=== PATIENT | female | born 1960 | race African-American/Black ===

== ENCOUNTER 2017-12-26 19:53 | Emergency (ER) | payer OTHER ==
[2017-12-26 20:40] LABS: Urine Blood NEGATIVE (NEG); Urine Glucose NEGATIVE (NEG); Urine Protein 1+ (NEG); Urine Specific Gravity 1.025 (1.005-1.030); Urine pH 6.5 (5.0-7.0)
[2017-12-26 20:40] LABS: Urine Bacteria <20 /HPF (<20); Urine Culture Reflex Order NOT NEEDED; Urine Mucus 2+ /HPF (NONE SEEN); Urine RBC <5 /HPF (NONE SEEN)
[2017-12-26 20:42] LABS: Absolute Lymphocytes (CBC) 2.7 K/uL (0.7-4.9); Absolute Monocytes 0.6 K/uL (0.1-1.3); Absolute Neutrophil 4.6 K/uL (1.8-8.0); Basophils % 0.8 % (0-1.3); Eosinophils % 2.3 % (0-4.4); Lymphocytes % 32.5 % (15.3-44.8); MCH 28.1 pg (27.0-35.0); MCV 85.6 fL (80-100); MPV 10.3 fL (7.6-11.3); Monocytes % 7.9 % (3.3-12.3); RBC Red Blood Cell Count 4.44 M/uL (3.86-4.86)
[2017-12-26 20:59] LABS: ALT/SGPT 20 U/L (12-78); AST/SGOT 21 U/L (15-37); Albumin 3.6 g/dL (3.4-5.0); Alkaline Phosphatase 102 U/L (45-117); Amylase Level 29 U/L (25-115); BUN Blood Urea Nitrogen 16 mg/dL (7-18); Bicarbonate 32 mmol/L (21-32); Bilirubin Direct < 0.1 mg/dL (0-0.2); Bilirubin Total 0.2 mg/dL (0.2-1.0); Glucose Level 88 mg/dL (74-106); Lipase 87 U/L (73-393); Potassium 3.5 mmol/L (3.5-5.1); Protein, Total 8.1 g/dL (6.4-8.2); Sodium Level 141 mmol/L (136-145)
[2017-12-27] MEDS ORDERED: KETOROLAC 30 MG/ML INJ ONE (00:50)
--- NOTE | 2017-12-27 00:57 | ER ---
Nurse's Notes [facility] Name: Dixie Herrera Age: 57 yrs Sex: Female : 1960 Arrival Date: 12/26/2017 Time: 19:53 Bed 7 Private MD: Diagnosis: Epiploic Appendagitis Presentation: 12/26 20:06 Presenting complaint: Patient states: Left lower quadrant abdominal pain since aj1 approximately 1230 this afternoon. Denies N/V/D/fever. Reports that her pain has gotten progressively worse as the day has gone on. Denies dysuria, reports urinary frequency. Transition of care: patient was not received from another setting of care. Onset of symptoms was December 26, 2017 at 12:30. Risk Assessment: Do you want to hurt yourself or someone else? Patient reports no desire to harm self or others. Initial Sepsis Screen: Does the patient meet any 2 criteria? HR > 90 bpm. Does the patient have a suspected source of infection? No. Patient's initial sepsis screen is negative. Care prior to arrival: None. 20:06 Method Of Arrival: Ambulatory aj1 20:06 Acuity: JOSE A 3 aj1 Triage Assessment: 20:11 General: Appears in no apparent distress. uncomfortable, Behavior is calm, cooperative, aj1 appropriate for age. Pain: Complains of pain in left lower quadrant Pain does not radiate. Pain currently is 8 out of 10 on a pain scale. Quality of pain is described as sharp, Pain began 8 hours ago Is intermittent, Alleviated by nothing. Aggravated by nothing. Neuro: Level of Consciousness is awake, alert, obeys commands. Cardiovascular: Patient's skin is warm and dry. Respiratory: Airway is patent Respiratory effort is even, unlabored, Respiratory pattern is regular, symmetrical. GI: Abdomen is non-distended, Reports lower abdominal pain, Patient currently denies diarrhea, nausea, vomiting. : Reports urinary frequency, Denies burning with urination. Derm: Skin is pink, warm \T\ dry. normal. Musculoskeletal: Circulation, motion, and sensation intact. 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 - Social history:: Smoking status: Patient/guardian denies using tobacco. - Ebola Screening: : Patient denies travel to an Ebola-affected area in the 21 days before illness onset. Screenin:29 Abuse screen: Denies threats or abuse. Denies injuries from another. Nutritional lp1 screening: No deficits noted. Tuberculosis screening: No symptoms or risk factors identified. Fall Risk None identified. Assessment: 20:28 General: Appears uncomfortable, Behavior is appropriate for age. Pain: Complains of lp1 pain in left lower quadrant Pain currently is 7 out of 10 on a pain scale. Quality of pain is described as aching, Pain began gradually. Neuro: Level of Consciousness is awake, alert, obeys commands. Cardiovascular: Patient's skin is warm and dry. Respiratory: Respiratory effort is even, unlabored. GI: Abdomen is obese, Bowel sounds present X 4 quads. Abdomen is tender to palpation in left lower quadrant. : Reports urinary frequency. EENT: No signs and/or symptoms were reported regarding the EENT system. Derm: Skin is intact, Skin is dry, Skin is normal. Musculoskeletal: Circulation, motion, and sensation intact. 21:25 Reassessment: Patient appears in no apparent distress at this time. Patient and/or lp1 family updated on plan of care and expected duration. Pain level reassessed. Patient drinking oral contrast at this time. 21:30 Reassessment: CT notified of patient completing oral contrast at this time. lp1 22:30 Reassessment: Patient appears in no apparent distress at this time. Patient and/or lp1 family updated on plan of care and expected duration. Pain level reassessed. Patient is alert, oriented x 3, equal unlabored respirations, skin warm/dry/pink. 23:09 Reassessment: PT TO CT WITH SOLAR TECH. bp 23:40 Reassessment: Patient ambulated to bathroom at this time. lp1 07 00:45 Reassessment: Patient appears in no apparent distress at this time. Patient and/or lp1 family updated on plan of care and expected duration. Pain level reassessed. Patient is alert, oriented x 3, equal unlabored respirations, skin warm/dry/pink. 01:21 Reassessment: Patient states pain decreased at this time. lp1 Vital Signs: 12/26 20:11 BP 134 / 86; Pulse 89; Resp 18; Temp 97.4(O); Pulse Ox 98% on R/A; Weight 131.54 kg aj1 (R); Height 5 ft. 7 in. (170.18 cm); Pain 8/10; 21:28 BP 127 / 67; Pulse 100; Resp 18; Pulse Ox 100% on R/A; lp1 22:15 BP 123 / 74; Pulse 85; Resp 18; Pulse Ox 100% on R/A; lp1 23:00 BP 130 / 80; Pulse 79; Resp 18; Pulse Ox 100% on R/A; lp1 12/27 00:15 BP 110 / 80; Pulse 87; Resp 16; Pulse Ox 100% on R/A; lp1 01:00 BP 154 / 73; Pulse 83; Resp 18; Pulse Ox 99% on R/A; lp1 12/26 20:11 Body Mass Index 45.42 (131.54 kg, 170.18 cm) [facility] ED Course: 12/26 19:53 Patient arrived in ED. ds1 20:09 Jaime Carlos PA is PHCP. cp 20:09 Jose Antonio Beach MD is Attending Physician. cp 20:11 Triage completed. aj1 20:11 Arm band placed on Patient placed in an exam room. aj1 20:12 Mercedez Figueroa, RN is Primary Nurse. lp1 20:29 Patient has correct armband on for positive identification. Placed in gown. Pulse ox lp1 on. NIBP on. 20:29 Urine collected: clean catch specimen, clear. lp1 20:37 Inserted saline lock: 20 gauge in left antecubital area, using aseptic technique. rv 22:55 No provider procedures requiring assistance completed. lp1 23:17 CT Abd/Pelvis - W/Contrast: may give oral contrast In Process Unspecified. EDMS 23:17 Patient moved to [place] via stretcher. eh 23:25 CT completed. Patient tolerated procedure well. Patient moved back from [place]. 12/27 01:22 IV discontinued, No redness/swelling at site. Pressure dressing applied. lp1 Administered Medications: 00:49 Drug: TORadol 30 mg Route: IVP; Site: left antecubital; lp1 01:21 Follow up: Response: Pain is decreased lp1 Outcome: 00:57 Discharge ordered by . cp 01:22 Discharged to home ambulatory. lp1 01:22 Condition: good 01:22 Discharge instructions given to patient, Instructed on discharge instructions, follow up and referral plans. medication usage, Demonstrated understanding of instructions, follow-up care, medications, Prescriptions given X 2. 01:37 Patient left the ED. lp1 Signatures: Dispatcher [employer] EDNena Abreu RN RN aj1 Festus Espinoza Demi ds1 Mercedez Figueroa RN RN lp1 Jaime Carlos PA PA cp Peltier, Brian RN RN bp Coy Garcia RN RN rv Corrections: (The following items were deleted from the chart) 12/26 21:30 21:28 Reassessment: Patient appears in no apparent distress at this time. Patient lp1 and/or family updated on plan of care and expected duration. Pain level reassessed. Patient drinking oral contrast at this time lp1
--- NOTE | 2017-12-27 00:57 | EDPHYS ---
Physician Documentation [facility] Name: Dixie Herrera Age: 57 yrs Sex: Female : 1960 Arrival Date: 12/26/2017 Time: 19:53 Bed 7 Private MD: ED Physician Jose Antonio Beach HPI: 12/26 20:42 This 57 yrs old Black Female presents to ER via Ambulatory with complaints of L Side cp Pain. 20:42 The patient presents with abdominal pain in the left lower quadrant. Onset: The cp symptoms/episode began/occurred today. The symptoms do not radiate. 20:42 Associated signs and symptoms: Pertinent negatives: anorexia, blood in stools, chest cp pain, constipation, diarrhea, dysuria, fever, hematuria, vaginal discharge. The symptoms are described as constant. Modifying factors: the symptoms are aggravated by pressure. 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 - Social history:: Smoking status: Patient/guardian denies using tobacco. - Ebola Screening: : Patient denies travel to an Ebola-affected area in the 21 days before illness onset. ROS: 20:48 Constitutional: Negative for body aches, chills, fever, poor PO intake. cp 20:48 Eyes: Negative for injury, pain, redness, and discharge. cp 20:48 ENT: Negative for ear pain, sore throat, difficulty swallowing, difficulty handling secretions. 20:48 Cardiovascular: Negative for chest pain. 20:48 Respiratory: Negative for cough, shortness of breath, wheezing. 20:48 Abdomen/GI: Positive for abdominal pain, of the anterior aspect of left lateral abdomen and left lower quadrant, Negative for nausea, vomiting, and diarrhea, constipation, anorexia. 20:48 Back: Negative for radiated pain. 20:48 : Negative for urinary symptoms. 20:48 Skin: Negative for cellulitis, rash. 20:48 Neuro: Negative for altered mental status, headache, weakness. 20:48 All other systems are negative. Exam: 20:55 Constitutional: The patient appears in no acute distress, alert, awake, cp non-diaphoretic, non-toxic, well developed, well nourished, obese. 20:55 Head/Face: Normocephalic, atraumatic. cp 20:55 Eyes: Periorbital structures: appear normal, Conjunctiva: normal, no exudate, no injection, Sclera: no appreciated abnormality, Lids and lashes: appear normal, bilaterally. 20:55 ENT: External ear(s): are unremarkable, Nose: is normal, Mouth: is normal, Posterior pharynx: is normal, airway is patent, no erythema, no exudate. 20:55 Neck: ROM/movement: is normal, is supple, without pain, no range of motions limitations. 20:55 Chest/axilla: Inspection: normal, Palpation: is normal, no crepitus, no tenderness. 20:55 Cardiovascular: Rate: normal, Rhythm: regular. 20:55 Respiratory: the patient does not display signs of respiratory distress, Respirations: normal, no use of accessory muscles, no retractions, no splinting, no tachypnea, labored breathing, is not present, Breath sounds: are clear throughout, no decreased breath sounds, no stridor, no wheezing. 20:55 Abdomen/GI: Inspection: obese Bowel sounds: active, all quadrants, Palpation: soft, in all quadrants, mild abdominal tenderness, in the anterior aspect of left lateral abdomen and left lower quadrant, rebound tenderness, is not appreciated, voluntary guarding, is not appreciated, involuntary guarding, is not appreciated. 20:55 Back: pain, is absent, ROM is normal. 20:55 Skin: cellulitis, is not appreciated, no rash present. Vital Signs: 20:11 BP 134 / 86; Pulse 89; Resp 18; Temp 97.4(O); Pulse Ox 98% on R/A; Weight 131.54 kg aj1 (R); Height 5 ft. 7 in. (170.18 cm); Pain 8/10; 21:28 BP 127 / 67; Pulse 100; Resp 18; Pulse Ox 100% on R/A; lp1 22:15 BP 123 / 74; Pulse 85; Resp 18; Pulse Ox 100% on R/A; lp1 23:00 BP 130 / 80; Pulse 79; Resp 18; Pulse Ox 100% on R/A; lp1 12/27 00:15 BP 110 / 80; Pulse 87; Resp 16; Pulse Ox 100% on R/A; lp1 01:00 BP 154 / 73; Pulse 83; Resp 18; Pulse Ox 99% on R/A; lp1 12/26 20:11 Body Mass Index 45.42 (131.54 kg, 170.18 cm) aj1 MDM: 12/26 20:09 Patient medically screened. cp 21:00 Differential diagnosis: bowel obstruction, diverticulitis, gastritis, non-specific abd cp pain, Pyelonephritis, Ureterolithiasis, urinary tract infection. 12/27 00:55 Data reviewed: vital signs, nurses notes, lab test result(s), radiologic studies, CT cp scan. 00:55 Counseling: I had a detailed discussion with the patient and/or guardian regarding: the cp historical points, exam findings, and any diagnostic results supporting the discharge/admit diagnosis, lab results, radiology results, to return to the emergency department if symptoms worsen or persist or if there are any questions or concerns that arise at home. Response to treatment: the patient's symptoms have markedly improved after treatment, and as a result, I will discharge patient. Special discussion: Based on the patient's Hx, exam, and Dx evaluation, there is no indication for emergent surgery or inpatient Tx. It is understood by the patient/guardian that if the Sx's persist or worsen they need to return immediately for re-evaluation. ED course: VSS. Discussed results of labs and CT report. Will discharge to home with instructions to return worsening pain, fever. 12/26 20:18 Order name: Urine Microscopic Only; Complete Time: 20:43 cp 12/26 20:19 Order name: Amylase, Serum; Complete Time: 22:39 cp 12/26 20:19 Order name: Basic Metabolic Panel; Complete Time: 22:39 cp 12/26 20:19 Order name: CBC with Diff; Complete Time: 20:44 cp 12/26 20:19 Order name: Creatinine for Radiology; Complete Time: 22:39 cp 12/26 20:19 Order name: Hepatic Function; Complete Time: 22:39 cp 12/26 22:39 Interpretation: Normal except: GLOB 4.5; A/G 0.8. cp 12/26 20:18 Order name: Urine Dipstick-Ancillary (obtain specimen); Complete Time: 20:30 cp 12/26 20:18 Order name: Urine Test (obtain specimen); Complete Time: 20:33 cp 12/26 20:19 Order name: Lipase; Complete Time: 22:39 cp 12/26 20:19 Order name: IV Saline Lock; Complete Time: 20:37 cp 12/26 20:34 Order name: Urine Dipstick--Ancillary (enter results); Complete Time: 20:43 eb 12/26 20:34 Order name: Urine --Ancillary (enter results); Complete Time: 20:43 eb 12/26 20:44 Order name: CT Abd/Pelvis - W/Contrast: may give oral contrast cp 12/26 20:19 Order name: Labs collected and sent; Complete Time: 20:37 cp Administered Medications: 00:49 Drug: TORadol 30 mg Route: IVP; Site: left antecubital; lp1 01:21 Follow up: Response: Pain is decreased lp1 Disposition: 03:45 Co-signature as Attending Physician, Jose Antonio Beach MD. Disposition: 12/27/17 00:57 Discharged to Home. Impression: Epiploic Appendagitis. - Condition is Stable. - Discharge Instructions: Abdominal Pain, Adult. - Prescriptions for Naprosyn 500 mg Oral Tablet - take 1 tablet by ORAL route 2 times per day take with food; 20 tablet. Tramadol 50 mg Oral Tablet - take 1 tablet by ORAL route every 8 hours as needed; 12 tablet. - Work release form, Medication Reconciliation Form, Thank You Letter, Antibiotic Education, Prescription Opioid Use form. - Follow up: Private Physician; When: 1 - 2 days; Reason: Recheck today's complaints. - Problem is new. - Symptoms have improved. Signatures: Dispatcher [employer] Nena Camp RN RN aj1 Mercedez Figueroa RN RN lp1 Jaime Carlos PA PA cp Starr, Gregory, MD MD gs Corrections: (The following items were deleted from the chart) 01:37 00:57 12/27/2017 00:57 Discharged to Home. Impression: Epiploic Appendagitis. Condition lp1 is Stable. Forms are Medication Reconciliation Form, Thank You Letter, Antibiotic Education, Prescription Opioid Use. Follow up: Private Physician; When: 1 - 2 days; Reason: Recheck today's complaints. Problem is new. Symptoms have improved. cp
--- NOTE | 2017-12-27 08:00 | RAD REPORT ---
EXAM DESCRIPTION: CT - Abdomen Pelvis W Contrast - 12/27/2017 3:01 am CLINICAL HISTORY: Abdominal pain. left lower quadrant pain since 12:30 p.m. today COMPARISON: None. TECHNIQUE: Computed axial tomography of the abdomen and pelvis was obtained. 100 cc Isovue-300 is ad ministered intravenously. Oral contrast was given. A preliminary report was generated by [employer] [facility] and reviewed prior to this dictation All CT scans are performed using dose optimization technique as appropriate and may include automated exposure control or mA/KV adjustment according to patient size. FINDINGS: The liver has a diminished attenuation consistent with fatty infiltration. The gallbladder has been r emoved. Spleen, pancreas, adrenals and kidneys appear unremarkable. The appendix is normal caliber. There is no evidence of diverticulitis A 28 millimeter fatty structures abuts the proximal sigmoid colon. Mild stranding is present within t he adjacent fat. This represents epiploic appendagitis. A small umbilical hernia contains fat IMPRESSION: Left lower quadrant epiploic appendagitis
== END 2017-12-27 01:37 | disposition home or self-care (01) ==
LOC: ER 19:53
DX: K63.89 Other specified diseases of intestine (principal); I10 Essential (primary) hypertension
CPT/HCPCS: 36415; 74177; 80048; 80076; 81003; 81015; 81025; 82150; 83690; 85025; 96374; 99284; Q9967

== ENCOUNTER 2022-08-11 23:00 | Emergency (ER) | payer OTHER ==
--- OUTSIDE RECORDS SUMMARY | 2022-08-11 23:04 | XMS REPORT | Continuity of Care Document ---
:1960 Author Organization [facility] t Address [address] [place] [address] Care Team Providers Name Role Phone DIANA GONGORA Primary Care Physician Unavailable PARAMJIT YI Attending Clinician Unavailable Guido Valadez Attending Clinician Unavailable MALATHI ESPINOSA Attending Clinician Unavailable DIANA GONGORA Attending Clinician Unavailable RADIOLOGY Attending Clinician Unavailable Radiology Attending Clinician Unavailable Doctor Unassigned, [place] Attending Clinician Unavailable Diana Olson Attending Clinician Paramjit Yi MD Attending Clinician Only, Adc Test Attending Clinician Unavailable Lab, Ang - Db Attending Clinician Unavailable Rosa Olson MD Attending Clinician ROSA OLSON Attending Clinician Unavailable Matthew Marquez Attending Clinician Luiza Portillo Attending Clinician CHICA MONTANEZ Attending Clinician Unavailable Eliot Attending Clinician Unavailable Malathi Espinosa PA-C Attending Clinician CHUCK QUESADA Attending Clinician Unavailable Chuck Sanchez Attending Clinician JORI ESPINOZA Attending Clinician Unavailable Geronimo Delgadillo DO Attending Clinician oJri Espinoza MD Attending Clinician Nurse, [facility] Attending Clinician Unavailable Jose Odell Attending Clinician JOSE LANDA Attending Clinician Unavailable PARAMJIT YI Admitting Clinician Unavailable DIANA GONGORA Admitting Clinician Unavailable Paramjit Yi MD Admitting Clinician Eliot Admitting Clinician Unavailable CHUCK QUESADA Admitting Clinician Unavailable JORI ESPINOZA Admitting Clinician Unavailable Jori Espinoza MD Admitting Clinician Payers Payer Name Policy Type Policy Number Effective Date Expiration Date [place] [id number] 2018 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-[employer] 00:00:00 [employer] [id number] 2011 00:00:00 Problems Condition Condition Condition Status Onset Resolution Last Treating Co mments Source Name Details Category Date Date Treatment Clinician Date Need for Need for Disease Active 2021-06 Unive rs vaccinatio vaccinatio 1-21 it y of n n 00:00: [place] [facility] Exposure Exposure Disease Active Unive rs to to 6-20 [place] of hepatitis [place] 00[place] Incontinen Incontinen Disease Active U nivers ce in ce in 6-20 ity of female female 00:00: [place] [facility] Acute Acute Disease Active Univers midline midline 5-16 ity of low back low back 00:00: [place] pain with pain with 00 Medi lazaro right-side right-side Br anch d sciatica d sciatica Wellness Wellness Disease Active Unive rs examinatio examinatio 2-15 it y of n n 00:00: [place] [facility] Elevated Elevated Disease Active Unive rs cholestero cholestero 2-08 it y of l l 00:00: [place] [facility] Gastroesop Gastroesop Disease Active U nivers hageal hageal 2-08 ity of reflux reflux 00:00: [place] disease disease 00 Medical without without Branch esophagiti esophagiti s s Dyslipidem Dyslipidem Disease Active U nivers ia ia 2-03 ity of 00:00: [place] 00 Medical Branch Prediabete Prediabete Disease Active U nivers s s 2-03 ity of 00:00: 00 Medical Branch Chest pain Chest pain Disease Active U nivers 2-02 ity of 00:00: Medical Branch Morbid Morbid Disease Active Univers obesity obesity 2-02 ity of with body with body 00:[place] mass index mass index 00 Me dical of of Branch 40.0-49.9 40.0-49.9 Hypertensi Hypertensi Disease Active U nivers ve ve 6-30 ity of disorder disorder 00:00: Medical Branch Ankle Ankle Disease Active Univers swelling swelling 6-30 ity of 00:00: 00 Medical Branch Allergies, Adverse Reactions, Alerts Allergy Allergy Status Severity Reaction(s) Onset Inactive Treating Comm ents Source Name Type Date Date Clinician No Known DA Active U [facility] Drug 2-17 Allergie 00:00: s 00 NO KNOWN Drug Active Univers ALLERGIE Class ity of S [facility] Social History Social Habit Start Date Stop Date Quantity Comments Source History SDOH University o f Alcohol Frequency [place] [facility] History [facility] University o f Alcohol Std [place] Medical Drinks Branch History [facility] University o f Alcohol Binge [place] [facility] al Branch Exposure to 2022-05-05 2022-05-15 Not sure University of SARS-CoV-2 00:00:00 07:42:00 [facility] (event) Branch Alcohol intake 2022-05-15 2022-05-15 Current drinker Unive rsity of 00:00:00 00:00:00 of alcohol [facility] (finding) Branch Tobacco use and 2022-05-15 2022-05-15 Smokeless tobacco Un iversity of exposure 00:00:00 00:00:00 non-user [facility] Alcohol Comment 2021-08-30 2021-08-30 2-3x a year Universi ty of 00:00:00 00:00:00 [facility] Sex Ass[birth year] At [birth year] Universit y of 00:00:00 00:00:00 [facility] Smoking Status Start Date Stop Date Source Never smoked tobacco [facility] Medications Ordered Filled Start Stop Current Ordering Indication Dosage Frequency Signature Comments Components Source Medication Medication Date Date Medication? Clinician (SIG) Name Name aspirin 81 2021-06 Yes 81mg Take 81 mg U nivers mg chewable 1-21 by mouth ity of tablet 08:20: daily. [address] Branch atorvastati 2021-06 Yes 20mg Take 20 mg Univers n 20 mg 1-21 by mouth ity of tablet 08:20: at [place] [address] bedtime. Medical Branch aspirin 81 2021-06 Yes 81mg Take 81 mg U nivers mg chewable 1-21 by mouth ity of tablet 08:20: daily. [address] Medical Branch atorvastati 2021-06 Yes 20mg Take 20 mg Univers n 20 mg 1-21 by mouth ity of tablet 08:20: at [place] [address] bedtime. Medical Branch aspirin 81 2021-06 Yes 81mg Take 81 mg U nivers mg chewable 1-21 by mouth ity of tablet 08:20: daily. [address] Branch atorvastati 2021-06 Yes 20mg Take 20 mg Univers n 20 mg 1-21 by mouth ity of tablet 08:20: at [place] [address] bedtime. Medical Branch aspirin 81 2021-06 Yes 81mg Take 81 mg U nivers mg chewable 1-21 by mouth ity of tablet 08:20: daily. [address] Branch atorvastati 2021-06 Yes 20mg Take 20 mg Univers n 20 mg 1-21 by mouth ity of tablet 08:20: at [place] [address] bedtime. Medical Branch methocarbam 2021-06 Yes [id number] 500mg Take 1 Univers oL 500 mg 1-21 tablet by ity o f tablet 00:00: mouth 2 [place] [address] (two) Medical times Branch daily as needed for Pain (scale 4-6). methocarbam 2021-06 Yes [id number] 500mg Take 1 Univers oL 500 mg 1-21 tablet by ity o f tablet 00:00: mouth 2 [place] 00 (two) Medical times [place] daily as needed for Pain (scale 4-6). methocarbam 2021-06 Yes [id number] 500mg Take 1 Univers oL 500 mg 1-21 tablet by ity o f tablet 00:00: mouth 2 [place] 00 (two) Medical times Branch daily as needed for Pain (scale 4-6). methocarbam 2021-06 Yes [id number] 500mg Take 1 Univers oL 500 mg 1-21 tablet by ity o f tablet 00:00: mouth 2 [place] 00 (two) Medical times Branch daily as needed for Pain (scale 4-6). ibuprofen 2021-06- Yes [id number] 600mg Take 1 Univers 600 mg 1-21 12-06 tablet by ity of tablet 00:00: 05:59 mouth [place] 00 :00 every 6 Medical (six) Branch hours as needed for Temp > 38.5 C for up to 14 days. ibuprofen 2021-06- Yes [id number] 600mg Take 1 Univers 600 mg 1-21 12-06 tablet by ity of tablet 00:00: 05:59 mouth [place] 00 :00 every 6 Medical (six) Branch hours as needed for Temp > 38.5 C for up to 14 days. lisinopriL- 2021-06 Yes 1{tbl} Take 1 Un elmo hydrochloro 0-22 tablet by ity of thiazide 00:00: mouth in [place] 10-12.5 mg 00 the Medical per tablet morning. [facility] lisinopriL- 2021-06 Yes 1{tbl} Take 1 Un elmo hydrochloro 0-22 tablet by ity of thiazide 00:00: mouth in [place] 10-12.5 mg 00 the Medical per tablet morning. [facility] lisinopriL- 2021-06 Yes 1{tbl} Take 1 Un elmo hydrochloro 0-22 tablet by ity of thiazide 00:00: mouth in [place] 10-12.5 mg 00 the Medical per tablet morning. [facility] lisinopriL- 2021-06 Yes 1{tbl} Take 1 Un elmo hydrochloro 0-22 tablet by ity of thiazide 00:00: mouth in [place] 10-12.5 mg 00 the Medical per tablet morning. [facility] h lactated Yes 1000mL at 100 Unive rs ringers IV 7-11 mL/hr, ity of infusion 19:15: 1,000 [place], [place] 1,000 mL 00 IV Medical Infusion, Branch CONTINUOUS , Starting on Sun01/02/22 at 1415, Until Discontinu ed, Routine, PACU lactated 2021- No 1000mL at 100 Univ ers ringers IV 01-02 mL/hr, ity of infusion 19:15: 22:03 1,000 mL, [place] 1,000 mL 00 :39 IV Medical Infusion, Branch CONTINUOUS , Starting on Sun01/02/22 at 1415, Until Sun01/02/22 at 1703, Routine, PACU ondansetron Yes 4mg 4 mg, Slow Univers (ZOFRAN 11 IV Push, ity of (PF)) 19:04: PRN, 1 [place] injection 4 48 dose, Medical mg Starting Branch on Sun01/02/22 at 1404, Until Discontinu ed, Routine, Nausea and Vomiting (N/V), PACU ondansetron 2021- No 4mg 4 mg, Slow Univers (ZOFRAN 01-02 IV Push, ity of (PF)) 19:04: 22:03 PRN, 1 [place] injection 4 48 :39 dose, Medical mg Starting Branch on Sun01/02/22 at 1404, Until Sun01/02/22 at 1703, Routine, Nausea and Vomiting (N/V), PACU water for 2021- No PRN, Univers irrigation 01-02 Starting ity of irrigation 18:27: 19:57 on Sun [place] solution 00 :42 01/02/22 at Medic al 1327, Branch Until Sun01/02/22 at 1457, Routine, Intra-op simethicone 2021- No PRN, Unive rs (GAS RELIEF 01-02 Starting ity of (SIMETHICON 18:27: 19:57 on Mon [place] E)) 40 00 :42 01/02/22 at Medical mg/0.6 mL 1327, Branch drops Until Sun01/02/22 at 1457, Routine, Intra-op lactated 2021- No 1000mL at 42 Unive rs ringers IV 01-02 mL/hr, ity of infusion 16:45: 17:12 1,000 mL, [place] 1,000 mL 00 :00 IV Medical Infusion, Branch ONCE, 1 dose, On Sun01/02/22 at 1145, Routine, DSU Pre-op lactated 2021-2021- No 1000mL at 42 Unive rs ringers IV 01-02 07-11 mL/hr, ity of infusion 16:45: 17:12 1,000 mL, [place] 1,000 mL 00 :00 IV Medical Infusion, Branch ONCE, 1 dose, On Sun01/02/22 at 1145, Routine, DSU Pre-op aspirin 81 2021-0 Yes 81mg Take 81 mg U nivers mg chewable 7-11 by mouth ity of tablet 14:58: daily. 3 x [place] [address] weekly Medical Branch atorvastati 0 Yes 20mg Take 20 mg Univers n 20 mg 7-11 by mouth ity of tablet 14:58: at [place] [address] bedtime. Medical Branch aspirin 81 2021-0 Yes 81mg Take 81 mg U nivers mg chewable 7-11 by mouth ity of tablet 14:58: daily. 3 x [place] [address] weekly Medical Branch atorvastati 0 Yes 20mg Take 20 mg Univers n 20 mg 7-11 by mouth ity of tablet 14:58: at [place] [address] bedtime. Medical Branch aspirin 81 0 Yes 81mg Take 81 mg U nivers mg chewable 7-11 by mouth ity of tablet 14:58: daily. 3 x [place] [address] weekly Medical Branch atorvastati 0 Yes 20mg Take 20 mg Univers n 20 mg 7-11 by mouth ity of tablet 14:58: at [place] [address] bedtime. Medical Branch aspirin 81 0 Yes 81mg Take 81 mg U nivers mg chewable 7-05 by mouth ity of tablet 12:13: daily. 3 x [place] [address] weekly Medical Branch atorvastati 2021-0 Yes 20mg Take 20 mg Univers n 20 mg 7-05 by mouth ity of tablet 12:13: at [place] [address] bedtime. Medical Branch aspirin 81 2021-0 Yes 81mg Take 81 mg U nivers mg chewable 7-05 by mouth ity of tablet 12:13: daily. 3 x [place] [address] weekly Medical Branch atorvastati 2021-0 Yes 20mg Take 20 mg Univers n 20 mg 7-05 by mouth ity of tablet 12:13: at [place] 07 bedtime. Medical Branch aspirin 81 0 Yes 81mg Take 81 mg U nivers mg chewable 6-20 by mouth ity of tablet 15:59: daily. [address] aspirin 81 2021-0 Yes 81mg Take 81 mg U nivers mg chewable 6-20 by mouth ity of tablet 15:59: daily. [address] aspirin 81 0 Yes 81mg Take 81 mg U nivers mg chewable 6-20 by mouth ity of tablet 15:59: daily. [address] lisinopriL- 2021- No [id number] lisinopril Univers hydrochloro 11-15 10 ity of thiazide 00:00: 04:59 mg-hydroch [place] 10-12.5 mg 00 :00 lorothiazi Med ical per tablet de 12.5 mg Bra nch tablet TAKE 1 TABLET BY MOUTH EVERY DAY hydroCHLORO 2021- No [id number] hydrochlor Univers thiazide 11-15 othiazide ity o f 12.5 mg 00:00: 04:59 12.5 mg [place] tablet 00 :00 tablet [facility] lisinopriL- 2021- No [id number] lisinopril Univers hydrochloro 11-15 10 ity of thiazide 00:00: 04:59 [place]-hydroch [place] 10-12.5 mg 00 :00 lorothiazi Med ical per tablet de 12.5 mg Bra nch tablet TAKE 1 TABLET BY MOUTH EVERY DAY hydroCHLORO 2021- No [id number] hydrochlor Univers thiazide 11-15 othiazide ity o f 12.5 mg 00:00: 04:59 12.5 mg [place] tablet 00 :00 tablet [facility] lisinopriL- 2021- No [id number] lisinopril Univers hydrochloro 11-15- 10 ity of thiazide 00:00: 04:59 [place]-hydroch [place] 10-12.5 mg 00 :00 lorothiazi Med ical per tablet de 12.5 mg Bra nch tablet TAKE 1 TABLET BY MOUTH EVERY DAY hydroCHLORO 2021- No [id number] hydrochlor Univers thiazide 11-15 othiazide ity o f 12.5 mg 00:00: 04:59 12.5 mg [place] tablet 00 :00 tablet [facility] lisinopriL- 2021- No [id number] lisinopril Univers hydrochloro 11-15 10 ity of thiazide 00:00: 04:59 [place]-hydroch [place] 10-12.5 mg 00 :00 lorothiazi Med ical per tablet de 12.5 mg Bra nch tablet TAKE 1 TABLET BY MOUTH EVERY DAY hydroCHLORO 2021- No [id number] hydrochlor Univers thiazide 11-15 othiazide ity o f 12.5 mg 00:00: 04:59 12.5 mg [place] tablet 00 :00 tablet [facility] lisinopriL- 2021- No [id number] lisinopril [facility] hydrochloro 11-15 10 ity of thiazide 00:00: 04:59 [place]-hydroch [place] 10-12.5 mg 00 :00 lorothiazi Med ical per tablet de 12.5 mg Bra nch tablet TAKE 1 TABLET BY MOUTH EVERY DAY hydroCHLORO 2021- No [id number] hydrochlor Univers thiazide 11-15 othiazide ity o f 12.5 mg 00:00: 04:59 12.5 mg [place] tablet 00 :00 tablet [facility] lisinopriL- 2021- No [id number] lisinopril [facility] hydrochloro 11-15 10 ity of thiazide 00:00: 04:59 mg-hydroch [place] 10-12.5 mg 00 :00 lorothiazi Med ical per tablet de 12.5 mg Bra nch tablet TAKE 1 TABLET BY MOUTH EVERY DAY hydroCHLORO 2021- No [id number] hydrochlor Univers thiazide 11-15 othiazide ity o f 12.5 mg 00:00: 04:59 12.5 mg [place] tablet 00 :00 tablet [facility] lisinopriL- 2021- No [id number] lisinopril Univers hydrochloro 11-15 10 ity of thiazide 00:00: 04:59 mg-hydroch [place] 10-12.5 mg 00 :00 lorothiazi Med ical per tablet de 12.5 mg Bra nch tablet TAKE 1 TABLET BY MOUTH EVERY DAY hydroCHLORO 2021-0 2022- No [id number] hydrochlor Univers thiazide 5-24 08-25 othiazide ity o f 12.5 mg 00:00: 04:59 12.5 mg [place] tablet 00 :00 tablet Medical Branch methocarbam 2021-0 Yes [id number] 500mg Take 1 Univers oL 500 mg 5-16 tablet by ity o f tablet 00:00: mouth (three) Medical times Branch daily as needed for Pain (scale 4-6). ibuprofen 2021-0 Yes [id number] 600mg Take 1 Univers 600 mg 5-16 tablet by ity of tablet 00:00: mouth every 8 Medical (eight) Branch hours as needed for Pain (scale 4-6). methocarbam 2021-0 Yes [id number] 500mg Take 1 Univers oL 500 mg 5-16 tablet by ity o f tablet 00:00: mouth (three) Medical times Branch daily as needed for Pain (scale 4-6). ibuprofen 2021-0 Yes [id number] 600mg Take 1 Univers 600 mg 5-16 tablet by ity of tablet 00:00: mouth every 8 Medical (eight) Branch hours as needed for Pain (scale 4-6). methocarbam 2021-0 Yes [id number] 500mg Take 1 Univers oL 500 mg 5-16 tablet by ity o f tablet 00:00: mouth (three) Medical times Branch daily as needed for Pain (scale 4-6). ibuprofen 2021-0 Yes [id number] 600mg Take 1 Univers 600 mg 5-16 tablet by ity of tablet 00:00: mouth every 8 Medical (eight) Branch hours as needed for Pain (scale 4-6). methocarbam 2021-0 Yes [id number] 500mg Take 1 Univers oL 500 mg 5-16 tablet by ity o f tablet 00:00: mouth (three) Medical times Branch daily as needed for Pain (scale 4-6). ibuprofen 2021-0 Yes [id number] 600mg Take 1 Univers 600 mg 5-16 tablet by ity of tablet 00:00: mouth every 8 Medical (eight) Branch hours as needed for Pain (scale 4-6). methocarbam 2021-0 Yes [id number] 500mg Take 1 Univers oL 500 mg 5-16 tablet by ity o f tablet 00:00: mouth 3 [place] 00 (three) Medical times Branch daily as needed for Pain (scale 4-6). ibuprofen 2022-0 Yes [id number] 600mg Take 1 Univers 600 mg 5-16 tablet by ity of tablet 00:00: mouth [place] 00 every 8 Medical (eight) Branch hours as needed for Pain (scale 4-6). ibuprofen 2022-0 Yes [id number] 600mg Take 1 Univers 600 mg 5-16 tablet by ity of tablet 00:00: mouth [place] 00 every 8 Medical (eight) Branch hours as needed for Pain (scale 4-6). ibuprofen 2-0 Yes [id number] 600mg Take 1 Univers 600 mg 5-16 tablet by ity of tablet 00:00: mouth [place] 00 every 8 Medical (eight) Branch hours as needed for Pain (scale 4-6). ibuprofen 2021-0 Yes [id number] 600mg Take 1 Univers 600 mg 5-16 tablet by ity of tablet 00:00: mouth [place] 00 every 8 Medical (eight) Branch hours as needed for Pain (scale 4-6). ibuprofen 2-0 Yes [id number] 600mg Take 1 Univers 600 mg 5-16 tablet by ity of tablet 00:00: mouth [place] 00 every 8 Medical (eight) Branch hours as needed for Pain (scale 4-6). ibuprofen 2021-0 Yes [id number] 600mg Take 1 Univers 600 mg 5-16 tablet by ity of tablet 00:00: mouth [place] 00 every 8 Medical (eight) Branch hours as needed for Pain (scale 4-6). ibuprofen 2-0 Yes [id number] 600mg Take 1 Univers 600 mg 5-16 tablet by ity of tablet 00:00: mouth [place] 00 every 8 Medical (eight) Branch hours as needed for Pain (scale 4-6). ibuprofen 2022-0 Yes [id number] 600mg Take 1 Univers 600 mg 5-16 tablet by ity of tablet 00:00: mouth [place] 00 every 8 Medical (eight) Branch hours as needed for Pain (scale 4-6). atorvastati 2021-0 Yes 20mg Take 20 mg Univers n 20 mg 2-15 by mouth ity of tablet 09:38: at [place] 48 bedtime. Medical Branch atorvastati 2022-0 Yes 20mg Take 20 mg Univers n 20 mg 2-15 by mouth ity of tablet 09:38: at [place] 48 bedtime. Medical Branch atorvastati Yes 20mg Take 20 mg Univers n 20 mg 2-15 by mouth ity of tablet 09:38: at [place] 48 bedtime. Medical Branch Immunizations Ordered Filled Immunization Date Status Comments [facility] e Immunization Name Name Influenza Virus 2022-05-15 Completed Universit y of Vaccine Quad IM, 00:00:00 [place] Me dical Preserv and ABX Branch Free 6 MO-64 YRS SARS-COV-2 COVID-19 2022-05-15 Completed Unive rsity of VACCINE 12 YRS+, 00:00:00 [place] Me dical BIVALENT 0.5ML, IM, Branc h (MODERNA BOOSTER) Influenza Virus 2022-05-15 Completed Universit y of Vaccine Quad IM, 00:00:00 [place] Me dical Preserv and ABX Branch Free 6 MO-64 YRS SARS-COV-2 COVID-19 2022-05-15 Completed Unive rsity of VACCINE 12 YRS+, 00:00:00 [place] Me dical BIVALENT 0.5ML, IM, Branc h (MODERNA BOOSTER) Influenza Virus 2022-05-15 Completed Universit y of Vaccine Quad IM, 00:00:00 [place] Me dical Preserv and ABX Branch Free 6 MO-64 YRS SARS-COV-2 COVID-19 2022-05-15 Completed Unive rsity of VACCINE 12 YRS+, 00:00:00 [place] Me dical BIVALENT 0.5ML, IM, Branc h (MODERNA BOOSTER) Influenza Virus 2022-05-15 Completed Universit y of Vaccine Quad IM, 00:00:00 [place] Me dical Preserv and ABX Branch Free 6 MO-64 YRS SARS-COV-2 COVID-19 2022-05-15 Completed Unive rsity of VACCINE 12 YRS+, 00:00:00 [place] Me dical BIVALENT 0.5ML, IM, Branc h (MODERNA BOOSTER) TDAP 2021-08-09 Completed University 00:00:00 [facility] TDAP 2021-08-09 [facility]00 [facility] TDAP 2021-08-09 Completed University of 00:00:00 [facility] TDAP 2021-08-09 Completed University of 00:00:00 [place] [facility] TDAP 2021-08-09 Completed University of 00:00:00 [place] [facility] TDAP 2021-08-09 Completed University of 00:00:00 [place] [facility] TDAP 2021-08-09 Completed University of 00:00:00 [place] [facility] TDAP 2021-08-09 Completed University of 00:00:00 [place] [facility] TDAP 2021-08-09 Completed University of 00:00:00 [place] [facility] TDAP 2021-08-09 Completed University of 00:00:00 [place] [facility] TDAP 2021-08-09 Completed University of 00:00:00 [facility] TDAP 2021-08-09 Completed University of 00:00:00 [facility] SARS-COV-2 COVID-19 2021-05-17 Completed Unive rsity of MODERNA VACCINE 00:00:00 [facility] SARS-COV-2 COVID-19 2021-05-17 Completed Unive rsity of MODERNA VACCINE 00:00:00 [facility] SARS-COV-2 COVID-19 2021-05-17 Completed Unive rsity of MODERNA VACCINE 00:00:00 [facility] SARS-COV-2 COVID-19 2021-05-17 Completed Unive rsity of MODERNA VACCINE 00:00:00 [facility] SARS-COV-2 COVID-19 2021-05-17 Completed Unive rsity of MODERNA VACCINE 00:00:00 [facility] [place] [facility] SARS-COV-2 COVID-19 2021-05-17 Completed Unive rsity of MODERNA VACCINE 00:00:00 [facility] SARS-COV-2 COVID-19 2021-05-17 Completed Unive rsity of MODERNA VACCINE 00:00:00 [facility] [place] [facility] Branch SARS-COV-2 COVID-19 2021-05-17 Completed Unive rsity of MODERNA 12+ YRS 00:00:00 [facility] ical VACCINE Branch SARS-COV-2 COVID-19 2021-05-17 Completed Unive rsity of MODERNA 12+ YRS 00:00:00 [facility] ical VACCINE Branch SARS-COV-2 COVID-19 2021-05-17 Completed Unive rsity of MODERNA 12+ YRS 00:00:00 [facility] ical VACCINE Branch SARS-COV-2 COVID-19 2021-05-17 Completed Unive rsity of MODERNA 12+ YRS 00:00:00 [place] Med ical VACCINE Branch SARS-COV-2 COVID-19 2021-05-17 Completed Unive rsity of MODERNA 12+ YRS 00:00:00 [facility] ical VACCINE Branch Influenza High Dose 2021-04-25 Completed Unive rsity of 00:00:00 [place] [facility] Influenza High Dose 2021-04-25 Completed Unive rsity of 00:00:00 [facility] Branch Influenza High Dose 2021-04-25 Completed Unive rsity of 00:00:00 [facility] Branch Influenza High Dose 2021-04-25 Completed Unive rsity of 00:00:00 [facility] Branch Influenza High Dose 2021-04-25 Completed Unive rsity of 00:00:00 [facility] Influenza High Dose 2021-04-25 Completed Unive rsity of 00:00:00 [facility] Branch Influenza High Dose 2021-04-25 Completed Unive rsity of 00:00:00 [place] [facility] Influenza High Dose 2021-04-25 Completed Unive rsity of 00:00:00 [facility] Branch Influenza High Dose 2021-04-25 Completed Unive rsity of 00:00:00 [place] [facility] Influenza High Dose 2021-04-25 Completed Unive rsity of 00:00:00 [facility] Influenza High Dose 2021-04-25 Completed Unive rsity of 00:00:00 [facility] Influenza High Dose 2021-04-25 Completed Unive rsity of 00:00:00 [facility] SARS-COV-2 COVID-19 2020-09-01 Completed Unive rsity of MODERNA VACCINE 00:00:00 [facility] ical Branch SARS-COV-2 COVID-19 2020-09-01 Completed Unive rsity of MODERNA VACCINE 00:00:00 [facility] ical Branch SARS-COV-2 COVID-19 2020-09-01 Completed Unive rsity of MODERNA VACCINE 00:00:00 [facility] ical Branch SARS-COV-2 COVID-19 2020-09-01 Completed Unive rsity of MODERNA VACCINE 00:00:00 [place] Med ical Branch SARS-COV-2 COVID-19 2020-09-01 Completed Unive rsity of MODERNA VACCINE 00:00:00 [place] Med ical Branch SARS-COV-2 COVID-19 2020-09-01 Completed Unive rsity of MODERNA VACCINE 00:00:00 [place] Med ical Branch SARS-COV-2 COVID-19 2020-09-01 Completed Unive rsity of MODERNA VACCINE 00:00:00 [place] Med ical Branch SARS-COV-2 COVID-19 2020-09-01 Completed Unive rsity of MODERNA 12+ YRS 00:00:00 [place] Med ical VACCINE Branch SARS-COV-2 COVID-19 2020-09-01 Completed Unive rsity of MODERNA 12+ YRS 00:00:00 [place] Med ical VACCINE Branch SARS-COV-2 COVID-19 2020-09-01 Completed Unive rsity of MODERNA 12+ YRS 00:00:00 [place] Med ical VACCINE Branch SARS-COV-2 COVID-19 2020-09-01 Completed Unive rsity of MODERNA 12+ YRS 00:00:00 [place] [facility] VACCINE [facility] SARS-COV-2 COVID-19 2020-09-01 Completed Unive rsity of MODERNA 12+ YRS 00:00:00 [place] [facility] VACCINE [facility] SARS-COV-2 COVID-19 2020-07-30 Completed Unive rsity of MODERNA VACCINE 00:00:00 [place] [facility] SARS-COV-2 COVID-19 2020-07-30 Completed Unive rsity of MODERNA VACCINE 00:00:00 [place] [facility] SARS-COV-2 COVID-19 2020-07-30 Completed Unive rsity of MODERNA VACCINE 00:00:00 [place] [facility] SARS-COV-2 COVID-19 2020-07-30 Completed Unive rsity of MODERNA VACCINE 00:00:00 [place] [facility] SARS-COV-2 COVID-19 2020-07-30 Completed Unive rsity of MODERNA VACCINE 00:00:00 [place] [facility] SARS-COV-2 COVID-19 2020-07-30 Completed Unive rsity of MODERNA VACCINE 00:00:00 [place] [facility] SARS-COV-2 COVID-19 2020-07-30 Completed Unive rsity of MODERNA VACCINE 00:00:00 [place] [facility] SARS-COV-2 COVID-19 2020-07-30 Completed Unive rsity of MODERNA 12+ YRS 00:00:00 [place] [facility] VACCINE [facility] SARS-COV-2 COVID-19 2020-07-30 Completed Unive rsity of MODERNA 12+ YRS 00:00:00 [place] [facility] VACCINE [facility] SARS-COV-2 COVID-19 2020-07-30 Completed Unive rsity of MODERNA 12+ YRS 00:00:00 [place] [facility] ical VACCINE Branch SARS-COV-2 COVID-19 2020-07-30 Completed Unive rsity of MODERNA 12+ YRS 00:00:00 [facility] ical VACCINE Branch SARS-COV-2 COVID-19 2020-07-30 Completed Unive rsity of MODERNA 12+ YRS 00:00:00 [facility] ical VACCINE Branch Vital Signs Vital Name Observation Time Observation Value Comments Source Systolic blood 2022-05-15 14:20:00 127 mm[Hg] Univer sity of pressure [facility] Diastolic blood 2022-05-15 14:20:00 73 mm[Hg] Unive rsity of pressure [facility] Heart rate 2022-05-15 14:20:00 57 /min [facility] Body temperature 2022-05-15 14:20:00 36.67 Lyly [facility] height 2022-05-15 14:20:00 170.2 cm [facility] Body weight 2022-05-15 14:20:00 136.986 kg [facility] BMI 2022-05-15 14:20:00 47.30 kg/m2 [facility] Oxygen saturation in 2022-05-15 14:20:00 99 /[facility] blood by [facility] Pulse oximetry Branch Systolic blood 2022-01-02 19:20:00 139 mm[Hg] Univer sity of pressure [facility] Diastolic blood 2022-01-02 19:20:00 88 mm[Hg] Unive rsity of pressure [facility] Respiratory rate 2022-01-02 19:20:00 20 /min [facility] Oxygen saturation in 2022-01-02 19:20:00 100 /min [facility] Arterial blood by [place] [facility] Pulse oximetry Branch Heart rate 2022-01-02 19:10:00 65 /min [facility] [place] [facility] [place] Body temperature 2022-01-02 18:54:00 36.11 Lyly [facility] [place] [facility] [place] Body height 2021-12-20 16:30:00 170.2 cm [facility] Body weight 2021-12-20 16:30:00 132.5 kg [facility] BMI 2021-12-20 16:30:00 45.74 kg/m2 [facility] Systolic blood 2022-01-02 19:10:00 148 mm[Hg] [facility] Diastolic blood 2022-01-02 19:10:00 86 mm[Hg] Unive rsity of pressure [facility] Heart rate 2022-01-02 19:10:00 65 /min [facility] Respiratory rate 2022-01-02 19:10:00 24 /min Univ ers[facility] Branch Oxygen saturation in 2022-01-02 19:10:00 100 /min University of Arterial blood by [place] [facility] Pulse oximetry Branch Body temperature 2022-01-02 18:54:00 36.11 Lyly [facility] Body height 2021-12-20 16:30:00 170.2 cm [facility] Body weight 2021-12-20 16:30:00 132.5 kg [facility] BMI 2021-12-20 16:30:00 45.74 kg/m2 [facility] Systolic blood 2021-12-12 20:59:00 114 mm[Hg] Univer [facility]ity of [facility] Diastolic blood 2021-12-12 20:59:00 73 mm[Hg] Unive rsity of pressure [facility] Heart rate 2021-12-12 20:59:00 92 /min [facility] Body height 2021-12-12 20:59:00 170.2 cm [facility] Body weight 2021-12-12 20:59:00 132.45 kg [facility] BMI 2021-12-12 20:59:00 45.73 kg/m2 [facility] Oxygen saturation in 2021-12-12 20:59:00 95 /min [facility] blood by [facility] Pulse oximetry Branch Procedures Procedure Date / Time Performing Clinician Source Performed XR LUMBAR SPINE 2 VW 2022-06-14 22:02:57 Diana Gongora [facility] ASSIGNMENT OF BENEFITS 2022-06-14 21:35:09 Doctor Unassigned, No [facility] SARS-COV-2 COVID-19 2022-05-15 14:33:34 Diana Gongora [facility] VACCINE 12 YRS+, [facility] BIVALENT 0.5ML, IM (MODERNA BOOSTER) FLU VACC (), 6 2022-05-15 14:32:31 Diana Gongora [facility] MO-64 YRS, .5ML, IM, [facility] QUAD (FLUCELVAX) COLONOSCOPY (ENDO) 2022-01-02 18:17:22 Diana Gongora [facility] COLONOSCOPY (ENDO) 2022-01-02 18:17:22 Rolan [facility] COLONOSCOPY 2022-01-02 18:07:00 Paramjit Yi [facility] ASSIGNMENT OF BENEFITS 2021-12-30 18:55:03 Doctor Unassigned, No [facility] POCT URINALYSIS 2021-12-12 00:00:00 Diana Gongora [place] [facility] DISCLOSURE AND CONSENT, 2021-10-27 05:01:00 Doctor Unassigned, N o [facility] MEDICAL AND SURGICAL Name [facility] PROCEDURES DISCLOSURE AND CONSENT, 2021-10-27 05:01:00 Doctor Unassigned, N o [facility] MEDICAL AND SURGICAL Name [facility] PROCEDURES Encounters Start End Encounter Admission Attending Care Care Encounter Source Date/Time Date/Time Type Type Clinicians Facility Department ID 2021-12-06 Outpatient DEON BOWDEN [id number] Univers 12:45:26 PARAMJIT [facility] 2021-08-12 [address] [facility] [id number] 13:30:00 Guido 29 2022-06-14 2022-06-14 Outpatient R RADIOLOGY [facility] [id number] Univers 15:37:10 23:59:00 ity of [facility] 2022-06-14 2022-06-14 Hospital Radiology [facility] 1.2.840.114 [id number] Univers 15:37:10 23:59:00 Encounter JULIOMIKAYLA 350.1.13.10 [facility] 4.2.7.2.686 [place] [facility] [phone] [facility] [address] [place] 2022-06-14 2022-06-14 Orders Doctor YAZAN 1.2.840.114 [id number] Univers 00:00:00 00:00:00 Only Unassigned, KELLI 350.1.13.10 ity of [place] [facility] 4.2.7.2.686 Maxime as [phone] [facility] [address] [place] 2022-05-15 2022-05-15 [facility] [id number] Univers 08:30:00 08:59:38 [facility] 2022-05-15 2022-05-15 [facility] 1.2.840.114 [id number] Univers 08:30:00 08:59:38 Visit Diana [facility] 350.1.13.10 it y of [place] 4.2.7.2.686 Maxime as WOOD?BLEA [phone] [place] [address] MEDICAL OFFICE BUILDING 2022-05-15 2022-05-15 Letter Doctor YAZAN 1.2.840.114 [id number] Univers 00:00:00 00:00:00 (Out) Unassigned, KELLI 350.1.13.10 it[place] of [place] [facility] 4.2.7.2.686 Maxime as [phone] [facility] [address] [place] 2022-01-02 2022-01-02 Outpatient R [facility] [id number] Univers 11:38:00 14:25:00 PARAMJIT otto [facility] 2022-01-02 2022-01-02 [facility] 1.2.840.114 [id number] Univers 11:38:00 14:25:00 Encounter Paramjit BONILLA 350.1.13.10 [facility] 4.2.7.2.686 [place] [id number] [facility] 071 Branch 2022-01-02 2022-01-02 Surgery Yi, [facility] [id number] Univers 13:15:00 14:11:00 Paramjit BONILLA 350.1.13.10 i ty [facility] 4.2.7.2.686 [place] [id number] [facility] 020 Branch 2021-12-30 2021-12-30 Laboratory Only, Adc Test [facility] 1.2.840. 114 [id number] Univers 08:30:00 08:45:00 Only Kd, Paramjit BONILLA 350.1.13.10 ity [facility] 4.2.7.2.686 [place] [phone] [facility] [address] [place] 2021-12-30 2021-12-30 [facility] [id number] Univers 08:30:00 08:30:00 [facility] 2021-12-30 2021-12-30 [facility] [id number] Univers 08:30:00 08:30:00 PARAMJIT [facility] 2021-12-30 2021-12-30 Orders Doctor YAZNA 1.2.840.114 [id number] Univers 00:00:00 00:00:00 Only Unassigned, KELLI 350.1.13.10 ity of [place] [facility] 4.2.7.2.686 Maxime as [phone] [facility] 009 Branch 2021-12-12 2021-12-12 Cpr Ambulance Driver Lab, Ang - Praneeth [facility] 1.2.840.1 [id number] Univers 16:30:00 16:45:00 Visit Diana Gongora [facility] 350.1.13.10 ity of [place] 4.2.7.2.686 Maxime as WOOD?BLEA [phone] [place] ameya [address] MEDICAL OFFICE BUILDING 2021-12-12 2021-12-12 Office [facility] 1.2.840.114 [id number] Univers 16:00:00 16:30:59 Visit Diana BURKETT 350.1.13.10 it y of [place] 4.2.7.2.686 Maxime as WOOD?BLEA [phone] [place] ameya [facility] [address] [place] MEDICAL OFFICE [facility] 2021-12-12 2021-12-12 Outpatient R ROLAN [facility] [id number] Univers 16:30:00 16:30:00 DIANA otto [facility] 2021-12-12 2021-12-12 Outpatient R ROLAN [facility] [id number] Univers 16:30:00 16:30:00 DIANA otto [facility] 2021-11-14 2021-11-14 Refill [facility] 1.2.840.114 [id number] Univers 00:00:00 00:00:00 Diana BURKETT 350.1.13.10 it y of [place] 4.2.7.2.686 Maxime as WOOD?BLEA [phone] [place] ameya [facility] 0[address] [facility] OFFICE [facility] 2021-11-10 2021-11-10 Office [facility]AD[facility] 1.2.230.670 [id number] Univers 08:45:00 09:31:31 Visit Rosa BURKETT 350.1.13.10 it y of [place] 4.2.7.2.686 Maxime as WOOD?BLEA [phone] [place] ameya [facility] [address] [facility] OFFICE [facility] 2021-11-10 2021-11-10 Outpatient R WESLEY [facility] [id number] Univers 08:45:00 09:31:31 ROSA otto [facility] 2021-11-10 2021-11-10 Outpatient R WESLEY [facility] [id number] Univers 08:45:00 08:45:00 ROSAEMILIANO otto [facility] 2021-11-10 2021-11-10 Outpatient R WESLEY [facility] [id number] Univers 08:45:00 08:45:00 ROSAEMILIANO otto [facility] 2021-11-07 2021-11-07 [facility] [id number] Univers 08:30:00 08:50:58 DIANA otto [facility] 2021-11-07 2021-11-07 Office [facility] 1.2.840.114 [id number] Univers 08:30:00 08:50:58 Visit Diana [facility] 350.1.13.10 it y of [place] 4.2.7.2.686 Maxime as WOOD?BLEA [phone] [place] ameya [place] [address] [place] MEDICAL OFFICE [facility] 2021-11-07 2021-11-07 [facility] [id number] Univers 08:30:00 08:50:58 DIANA otto [facility] 2021-10-27 2021-10-27 Urgent Sergey Weirbrandon [facility] 1.2.840.11 [id number] Univers 11:00:00 11:30:12 Care [facility] 350.1.13.10 ity of [place] 4.2.7.2.686 Maixme as WOOD?BLEA [phone] [place] ameya [facility] 370 [facility] OFFICE [facility] 2021-10-27 2021-10-27 Office [facility]AD[facility] [id number] Univers 09:30:00 10:14:52 Visit Paramjit CHAD 350.1.13.10 i ty of [place] 4.2.7.2.686 [place] [phone] [place] ar[address] 2021-10-27 2021-10-27 Outpatient R KD [facility] [id number] Univers 09:30:00 10:14:52 PARAMJIT otto [facility] 2021-10-27 2021-10-27 Outpatient R KD [facility] [id number] Univers 09:30:00 09:30:00 PARAMJIT otto [facility] 2021-10-04 2021-10-04 Orders Doctor HAND 1.2.840.114 [id number] Univers 00:00:00 00:00:00 Only Unassigned, KELLI 350.1.13.10 ity of [place] [facility] [id number] Maxime as [id number] [address] 2021-09-09 2021-09-09 Office [facility]AD[facility] 1.2.432.553 [id number] Univers 09:00:00 09:15:00 Visit [facility] 350.1.13.10 it y of [facility] 4.2.7.2.686 Maxime as WOOD?BLEA [phone] [place] dical SILVESTRE 198 [facility] 2021-09-09 2021-09-09 [facility] [id number] Univers 09:00:00 09:00:00 [facility] 2021-09-09 2021-09-09 [facility] [id number] Univers 09:00:00 09:00:00 [facility] 2021-09-09 2021-09-09 Telephone OlsonAD[facility] 1.2.840.114 [id number] Univers 00:00:00 00:00:00 [facility] 350.1.13.10 it y of [place] 4.2.7.2.686 Maixme as WOOD?BLEA [phone] [place] ameya [address] 2021-09-05 2021-09-05 Outpatient R LISSETH [facility] [id number] Univers 10:30:00 10:30:00 [facility] 2021-09-02 2021-09-02 [facility] [id number] [place] 03:52:00 03:52:00 [facility] 2021-08-30 2021-08-30 Outpatient R JESÚS [facility] [id number] Univers 09:00:00 10:00:48 [facility] 2021-08-30 2021-08-30 Office JesúsADV[facility] [id number] [id number] Univers 09:00:00 10:00:48 Visit Mal[facility] 350.1.13.10 i ty of [place] 4.2.7.2.686 [place] [phone] [place] dical [place] [address] [place] [address] 2021-08-30 2021-08-30 Outpatient Nemo ESPINOSA [facility] [id number] Univers 09:00:00 10:00:48 MALATHI ashrafjeremias [facility] 2021-08-29 2021-08-29 Outpatient Nemo QUESADA [facility] [id number] Univers 12:43:10 23:59:00 CHUCK itjeremias [facility] 2021-08-29 2021-08-29 [facility] DeseanADV[facility] 1.2.840.114 [id number] Univers 12:43:10 23:59:00 Encounter Chuck BONILLA 350.1.13.10 ity of [place] 4.2.7.2.686 [place] [facility] [phone] [facility] [address] [place] 2021-08-29 2021-08-29 Outpatient Nemo QUESADA [facility] [id number] Univers 12:43:10 23:59:00 [facility]UCK [facility] 2021-08-29 2021-08-29 Orders Doctor HAND 1.2.840.114 [id number] Univers 00:00:00 00:00:00 Only Unassigned, KELLI 350.1.13.10 ity of [place] [facility] 4.2.7.2.686 Mxaime as [phone] [facility] [address] [place] 2021-08-12 2021-08-12 Outpatient [facility] [id number] [facility] 06:32:00 06:32:00 29 2021-08-11 2021-08-11 Outpatient Nemo QUESADAADV[facility] RAD [id number] Univers 13:20:00 13:20:00 CHUCK itjeremias [facility] 2021-08-11 2021-08-11 Telephone [facility]AD[facility] [id number] Univers 00:00:00 00:00:00 Diana [facility] 350.1.13.10 it y of [facility] 4.2.7.2.686 Maxime as WOOD?BLEA [id number] [address] MEDICAL OFFICE [facility] 2021-08-11 2021-08-11 Telephone Rolan [facility] [id number] Univers 00:00:00 00:00:00 Diana BONILLA 350.1.13.10 i ty [facility] 4.2.7.2.686 [place] [phone] [place] ameya HUERTA 134 [facility] 2021-08-09 2021-08-09 Cpr Ambulance Driver Lab, Ang - Db [facility] 1.2.840.1 [id number] Univers 10:45:00 11:00:00 Visit Rolan Diana [facility] 350.1.13.10 ity of [place] 4.2.7.2.686 Maxime as WODO?BLEA [phone] [place] am[place] [address] [facility] OFFICE [facility] 2021-08-09 2021-08-09 Outpatient R ROLAN [facility] [id number] Univers 10:45:00 10:45:00 DIANA ashrafjeremias [facility] 2021-08-09 2021-08-09 Outpatient R ROLAN [facility] [id number] Univers 10:45:00 10:45:00 DIANA otto [facility] 2021-08-09 2021-08-09 Office [facility] 1.2.840.114 [id number] Univers 09:30:00 10:33:46 Visit Diana [facility] 350.1.13.10 it y of [place] 4.2.7.2.686 Maxime as WOOD?BLEA [phone] [facility] [address] OFFICE [facility] 2021-08-09 2021-08-09 Outpatient R ROLAN [facility] [id number] Univers 09:30:00 09:30:00 DIANA otto [facility] 2021-08-09 2021-08-09 Letter [facility]AD[facility] 1.2.840.114 [id number] Univers 00:00:00 00:00:00 (Out) Diana HEALTH 350.1.13.10 it y of [facility] 4.2.7.2.686 Maxime as WOOD?BLEA [phone] [place] ameya [place] [address] [facility] OFFICE [facility] 2021-08-02 2021-08-02 Cpr Ambulance Driver Lab, Ang - Db [facility] 1.2.840.1 [id number] Univers 09:00:00 09:15:00 Visit Diana Gongora HEALTH 350.1.13.10 ity of [place] 4.2.7.2.686 Maxime as WOOD?BLEA [phone] [place] ameya [address] [place] MEDICAL OFFICE [facility] 2021-08-02 2021-08-02 Outpatient R ROLAN [facility] [id number] Univers 09:00:00 09:00:00 DIANA otto [facility] 2021-08-02 2021-08-02 Outpatient R ROLAN [facility] [id number] Univers 09:00:00 09:00:00 DIANA otto [facility] 2021-08-02 2021-08-02 Office [facility]AD[facility] 1.2.840.114 [id number] Univers 08:00:00 08:53:55 Visit Diana [facility] 350.1.13.10 it y of [place] 4.2.7.2.686 Maxime as WOOD?BLEA [phone] [place] am[place]a [place] [address] [facility] OFFICE [facility] 2021-07-27 2021-07-28 Outpatient X OLGA [facility] [id number] Univers 17:35:00 14:56:00 JORI [facility] 2021-07-27 2021-07-28 Emergency Geronimo Delgadillo [facility] 1.2.840. 114 [id number] Univers 17:35:00 14:56:00 Jori Espinoza [place] 350.1.13.10 ity of [place] 4.2.7.2.686 [place] [facility] [phone] [facility] [address] [place] 2021-07-27 2021-07-27 Nurse Nurse, [facility] 1.2.840.114 [id number] Univers 17:20:00 17:40:00 Visit Jose Landa [facility] 350.1.13.10 ity of [place] 4.2.7.2.686 Maxime as WOOD?BLEA [phone] [place] ameya [place] [address] [facility] OFFICE [facility] 2021-07-27 2021-07-27 Outpatient R CHARLY [facility] [id number] Univers 17:20:00 17:20:00 ROMEJOEL [facility] 2021-07-27 2021-07-27 Orders Doctor YAZAN 1.2.840.114 [id number] Univers 00:00:00 00:00:00 Only Unassigned, KELLI 350.1.13.10 ity of [place] [facility] 4.2.7.2.686 Maxime as [phone] [address] Results Test Description Test Time Test Comments Results Result Comments Source POCT URINALYSIS W SPECIFIC GRAVITY 2021-12-12 21:27:00 Test Item Value Reference Range Interpretation Comme nts POCT U SP GRAV (test code = 3255) 1020 mg/dl 1.005-1.025 A POCT PH U (test code = 3254) 5 mg/dl 5-8 POCT U LEUK EST (test code = 3263) negative Negative - Negative POCT U NIT (test code = 3262) negative Negative - Negative POCT U PROT (test code = 3259) negative Negative - Negative POCT U GLU (test code = 3256) negative Negative - Negative POCT U KETONE (test code = 3258) negative Negative - Negative POCT U UROBILI (test code = 3260) negative 0.2-1 POCT U BILI (test code = 3261) negative Negative - Negative POCT U BLD (test code = 3257) negative Negative - Negative POCT U COLOR (test code = 3266) dark yellow POCT U APPEAR (test code = 3267) hazy Lab Interpretation (test code = 02725-7) Abnormal [facility] URINALYSIS W SPECIFIC [id number] 21:27:00 Test Item Value Reference Range Interpretation Comments POCT U SP GRAV (test code = 1020 mg/dl 1.005-1.025 A 3255) POCT PH U (test code = 3254) 5 mg/dl 5-8 POCT U LEUK EST (test code = negative Negative - Negative 3263) POCT U NIT (test code = 3262) negative Negative - Negative POCT U PROT (test code = negative Negative - Negative 3259) POCT U GLU (test code = 3256) negative Negative - Negative POCT U KETONE (test code = negative Negative - Negative 3258) POCT U UROBILI (test code = negative 0.2-1 3260) POCT U BILI (test code = negative Negative - Negative 3261) POCT U BLD (test code = 3257) negative Negative - Negative POCT U COLOR (test code = dark yellow 3266) POCT U APPEAR (test code = hazy 3267) Lab Interpretation (test code Abnormal = 47338-7) [facility] w/o [id number] 07:53:00 Test Item Value Reference Range Interpretation Comments White Blood Count (test code = 6.2 x10 3/uL 4.4-10.5 N WBCT) Red Blood Count (test code = 4.45 x10 6/uL 3.75-5.20 N RBC) Hemoglobin (test code = HGBT) 12.3 g/dL 12.2-14.8 N Hematocrit (test code = HCTT) 39.3 % 36.5-44.4 N Mean Corpuscular Volume (test 88.30 fL 80.00-100.00 N code = MCV) Mean Corpuscular Hemoglobin 27.6 pg 27.0-32.5 N (test code = MCH) Mean Corpuscular HGB Conc 31.30 g/dL 32.00-37.50 L (test code = MCHC) RDW Coefficient of Variation 14.1 % 11.5-14.5 N (test code = RDWCV) Platelet Count (test code = 204.0 x10 3/uL 140.0-440.0 N PLTT) Mean Platelet Volume (test 11.8 fL code = MPV) nRBC Abs (test code = NRBCA) 0 nRBC Pct (test code = NRBCP) 0 % Comprehensive Metabolic [id number] 07:53:00 Test Item Value Reference Range Interpretation Comments SODIUM (test code = NA) 140.0 mmol/L 136.0-145.0 N Potassium,K (test code = K) 3.3 mmol/L 3.0-5.1 N Chloride (test code = CL) 105 mmol/L 98-107 N Carbon Dioxide (test code = 30 mmol/L 20-31 N CO2) Anion Gap (test code = GAP) 5 mmol/L 5-15 N Blood Urea Nitrogen (test code 16 mg/dL 9-23 N = BUN) Creatinine (test code = CREATT) 0.75 mg/dL 0.55-1.02 N Creatinine Clr Calc Pharmacy 114.21 mL/min (test code = CRCLPHA) Estimated GFR ( Mary > 60 mL/min/1.73m2 (test code = EGFRAA) Estimated GFR (Non Afr Mary > 60 mL/min/1.73m2 (test code = EGFRNAA) BUN/Creatinine Ratio (test code 21 ratio 10-20 H = BCRATIO) Glucose (test code = GLU) 101 mg/dL 74-106 N Osmolality,Calculated (test 290.7 code = OSMOC) Calcium (test code = CA) 9.1 mg/dL 8.3-10.6 N Bilirubin,Total (test code = 0.4 mg/dL 0.2-1.1 N BILIT) Aspartate Amino Transferase 22 U/L 0-34 N (test code = AST) Alanine Aminotransferase (test 16 U/L 10-49 N code = ALT) Total Protein (test code = TP) 7.5 g/dL 5.7-8.2 N Albumin Level (test code = ALB) 4.3 g/dL 3.2-4.8 N Globulin (test code = GLOB) 3.2 mg/dL 2.3-3.5 N Albumin/Globulin Ratio (test 1.3 ratio 0.8-2.0 N code = AGRATIO) Alkaline Phosphatase (test code 112 U/L 46-116 N = ALP)
[2022-08-12 00:18] LABS: Urine Blood Negative (Negative); Urine Glucose Negative (Negative); Urine Protein Negative (Negative); Urine pH 6.5 (5.0-7.0)
[2022-08-12] MEDS ORDERED: MORPHINE 4 MG/ML SYR ONE (00:23)
[2022-08-12] MEDS ORDERED: LIDOCAINE 4% PATCH ONE (00:24)
[2022-08-12] MEDS ORDERED: dexAMETHasone 10 MG/ML VIAL ONE (00:24)
[2022-08-12] MEDS ORDERED: KETOROLAC 30 MG/ML INJ ONE (00:24)
--- NOTE | 2022-08-12 01:36 | ER ---
Nurse's Notes [facility] Name: Dixie Herrera Age: 62 yrs Sex: Female : 1960 Arrival Date: 08/11/2022 Time: 23:05 Bed 6 Private MD: Diagnosis: Sciatica, left side Presentation: 08/12 00:04 Chief complaint: Patient states: pt c/o lower left sided back pain that has as6 progressively gotten worse. pt denies injury. Coronavirus screen: At this time, the client does not indicate any symptoms associated with coronavirus-19. Ebola Screen: No symptoms or risks identified at this time. Risk Assessment: Do you want to hurt yourself or someone else? Patient reports no desire to harm self or others. Onset of symptoms was August 11, 2022. 00:04 Method Of Arrival: Wheelchair as6 00:04 Acuity: JOSE A 3 as6 00:18 Initial Sepsis Screen: Does the patient meet any 2 criteria? No. Patient's initial as6 sepsis screen is negative. Does the patient have a suspected source of infection? No. Patient's initial sepsis screen is negative. Historical: - Allergies: 00:18 No Known Allergies; as6 - PMHx: 00:18 Hypertension; as6 - PSHx: 00:18 section; Cholecystectomy; as6 - Immunization history:: Client reports receiving the 2nd dose of the Covid vaccine, moderna. - Social history:: Smoking status: Patient denies any tobacco usage or history of. Screenin:05 [facility] ED Fall Risk Assessment (Adult) Score/Fall Risk Level 0 - 2 = Low Risk. Abuse as6 screen: Denies threats or abuse. Denies injuries from another. Nutritional screening: No deficits noted. Tuberculosis screening: No symptoms or risk factors identified. Assessment: 00:34 General: Appears uncomfortable, Behavior is calm, cooperative. Pain: Complains of pain as6 in low back area and left flank. Neuro: Level of Consciousness is awake, alert, obeys commands, Oriented to person, place, time, situation. Respiratory: Respiratory effort is even, unlabored. Musculoskeletal: Reports pain in low back area and left flank. Vital Signs: 00:33 BP 140 / 74; Pulse 85; Resp 18 S; Temp 98.2(O); Pulse Ox 100% on R/A; Weight 135.17 kg as6 (R); Height 5 ft. 6 in. (167.64 cm) (R); Pain 10/10; 02:13 BP 125 / 89; Pulse 65; Resp 18 S; Pulse Ox 98% on R/A; as6 00:33 Body Mass Index 48.10 (135.17 kg, 167.64 cm) as6 ED Course: 08/11 23:05 Patient arrived in ED. jj6 23:34 Robert Yancey, RN is Primary Nurse. as6 23:56 Jaime Carlos PA is PHCP. cp 23:56 Rosy Denny MD is Attending Physician. cp 08/12 00:05 Triage completed. as6 00:05 Arm band placed on. as6 00:05 Bed in low position. Call light in reach. Side rails up X 1. Adult w/ patient. as6 02:13 No provider procedures requiring assistance completed. Patient did not have IV access as6 during this emergency room visit. Administered Medications: 00:30 Drug: Lidoderm Patch 5 % (700 mg/patch) 1 patches Route: Topical; Site: affected area; as6 02:11 Follow up: Response: No adverse reaction as6 00:30 Drug: morphine 8 mg Route: IM; Site: left ventrogluteal; as6 02:11 Follow up: Response: No adverse reaction as6 00:30 Drug: Decadron (dexamethasone) 10 mg Route: IM; Site: left ventrogluteal; as6 02:11 Follow up: Response: No adverse reaction as6 00:30 Drug: Ketorolac 30 mg Route: IM; Site: left ventrogluteal; as6 02:11 Follow up: Response: No adverse reaction as6 Medication: 00:06 VIS not applicable for this client. as6 Outcome: 01:36 Discharge ordered by MD. cp 02:12 Discharged to home via wheelchair, with family. as6 02:12 Condition: stable 02:12 Discharge instructions given to patient, Instructed on discharge instructions, follow up and referral plans. medication usage, Demonstrated understanding of instructions, follow-up care, medications, Prescriptions given X 4. 02:13 Patient left the ED. as6 Signatures: Jaime Carlos PA PA Keshia David jj6 Robert Yancey, RN RN as6
--- NOTE | 2022-08-12 01:36 | EDPHYS ---
Physician Documentation [facility] Name: Dixie Herrera Age: 62 yrs Sex: Female : 1960 Arrival Date: 08/11/2022 Time: 23:05 Bed 6 Private MD: ED Physician Rosy Denny HPI: 08/12 00:15 This 62 yrs old Black Female presents to ER via Wheelchair with complaints of Back cp Injury, Back Pain. 00:15 The patient presents with pain that is acute, with no known mechanism of injury. The cp symptoms are located in the left side low back. Onset: The symptoms/episode began/occurred yesterday, and became worse today. The pain radiates to the back of left leg. Associated signs and symptoms: Pertinent negatives: abdominal pain, chest pain, constipation, fever, hematuria, incontinence, numbness, tingling, urinary retention, weakness. The problem was sustained from unknown cause. Severity of symptoms: in the emergency department the symptoms are unchanged, despite home interventions. The patient has experienced a previous episode, pain worse today. Historical: - Allergies: 00:18 No Known Allergies; as6 - PMHx: 00:18 Hypertension; as6 - PSHx: 00:18 section; Cholecystectomy; as6 - Immunization history:: Client reports receiving the 2nd dose of the Covid vaccine, moderna. - Social history:: Smoking status: Patient denies any tobacco usage or history of. ROS: 00:20 Constitutional: Negative for body aches, chills, fever, poor PO intake. cp 00:20 Eyes: Negative for injury, pain, redness, and discharge. cp 00:20 Neck: Negative for pain with movement, pain at rest, stiffness. 00:20 Cardiovascular: Negative for chest pain, edema, palpitations. 00:20 Respiratory: Negative for cough, shortness of breath, wheezing. 00:20 Abdomen/GI: Negative for abdominal pain, nausea, vomiting, and diarrhea, constipation, bowel incontinence. 00:20 Back: Positive for pain at rest, pain with movement, of the left low back, Negative for injury or acute deformity. 00:20 : Negative for urinary symptoms, hematuria, difficulty urinating, bladder incontinence. 00:20 MS/extremity: Positive for pain, of the back of left leg. 00:20 Neuro: Negative for altered mental status, headache, numbness, tingling, weakness. 00:20 All other systems are negative. Exam: 00:25 Constitutional: The patient appears in no acute distress, alert, awake, cp non-diaphoretic, non-toxic, well developed, well nourished, obese, uncomfortable. 00:25 Head/Face: Normocephalic, atraumatic. cp 00:25 Eyes: Periorbital structures: appear normal, Conjunctiva: normal, no exudate, no injection, Sclera: no appreciated abnormality, Lids and lashes: appear normal, bilaterally. 00:25 ENT: External ear(s): are unremarkable, Nose: is normal, Mouth: Lips: moist, Oral mucosa: moist, Posterior pharynx: Airway: no evidence of obstruction, patent. 00:25 Neck: ROM/movement: is normal, is supple, without pain, no range of motions limitations. 00:25 Chest/axilla: Inspection: normal. 00:25 Cardiovascular: Rate: normal, Rhythm: regular, Edema: is not appreciated, JVD: is not appreciated. 00:25 Respiratory: the patient does not display signs of respiratory distress, Respirations: normal, no use of accessory muscles, no retractions, labored breathing, is not present, Breath sounds: are clear throughout, no decreased breath sounds. 00:25 Abdomen/GI: Inspection: abdomen appears normal, Palpation: abdomen is soft and non-tender, in all quadrants. 00:25 Back: pain, that is severe, of the left low back, ROM is painful, with all movement, Straight leg raises: left lower extremity illicits pain, at 60 degrees. 00:25 Neuro: Orientation: to person, place \T\ time. Mentation: is normal, Motor: moves all fours, strength is normal, Sensation: is normal, Deep tendon reflexes are 2+ (normal) in the right patellar, right Achilles, left patellar and left Achilles. Vital Signs: 00:33 BP 140 / 74; Pulse 85; Resp 18 S; Temp 98.2(O); Pulse Ox 100% on R/A; Weight 135.17 kg as6 (R); Height 5 ft. 6 in. (167.64 cm) (R); Pain 10/10; 02:13 BP 125 / 89; Pulse 65; Resp 18 S; Pulse Ox 98% on R/A; as6 00:33 Body Mass Index 48.10 (135.17 kg, 167.64 cm) as6 MDM: 08/11 23:56 Patient medically screened. cp 08/12 00:30 Differential diagnosis: chronic back pain, Ureterolithiasis sciatica, bulging disc, cp cauda equina, spinal stenosis. 01:35 Data reviewed: vital signs, nurses notes. cp 01:35 Consideration of Admission/Observation Escalation of care including cp admission/observation considered. I considered the following discharge prescriptions or medication management in the emergency department Medications were administered in the Emergency Department. See MAR. Test considered but Not performed: X-ray: lumbar spine. Care significantly affected by the following chronic conditions: Hypertension. Counseling: I had a detailed discussion with the patient and/or guardian regarding: the historical points, exam findings, and any diagnostic results supporting the discharge/admit diagnosis, lab results, the need for outpatient follow up, for definitive care, a family practitioner, to return to the emergency department if symptoms worsen or persist or if there are any questions or concerns that arise at home. Response to treatment: the patient's symptoms have markedly improved after treatment, and as a result, I will discharge patient. 08/12 00:18 Order name: Urine Dipstick-Ancillary; Complete Time: 00:45 EDMS Administered Medications: 00:30 Drug: Lidoderm Patch 5 % (700 mg/patch) 1 patches Route: Topical; Site: affected area; as6 02:11 Follow up: Response: No adverse reaction as6 00:30 Drug: morphine 8 mg Route: IM; Site: left ventrogluteal; as6 02:11 Follow up: Response: No adverse reaction as6 00:30 Drug: Decadron (dexamethasone) 10 mg Route: IM; Site: left ventrogluteal; as6 02:11 Follow up: Response: No adverse reaction as6 00:30 Drug: Ketorolac 30 mg Route: IM; Site: left ventrogluteal; as6 02:11 Follow up: Response: No adverse reaction as6 Disposition Summary: 08/12/22 01:36 Discharge Ordered Location: Home cp Problem: new cp Symptoms: have improved cp Condition: Stable cp Diagnosis - Sciatica, left side cp Followup: cp - With: Private Physician - When: 2 - 3 days - Reason: Recheck today's complaints Discharge Instructions: - Discharge Summary Sheet cp - Sciatica cp - Back Exercises cp Forms: - Medication Reconciliation Form cp - Thank You Letter cp - Antibiotic Education cp - Prescription Opioid Use cp - Work release form as6 Prescriptions: - Lidoderm 5 % Topical adhesive patch,medicated - apply 1 patch by TOPICAL route once daily; 10 patch; Refills: 0, Product cp Selection Permitted - Cyclobenzaprine 10 mg Oral Tablet - take 1 tablet by ORAL route every 8 hours As needed; 30 tablet; Refills: 0, cp Product Selection Permitted - Diclofenac Sodium 75 mg Oral Tablet Sustained Release - take 1 tablet by ORAL route 2 times per day; 30 tablet; Refills: 0, Product cp Selection Permitted - Medrol (Elfego) 4 mg Oral Tablets, Dose Pack - take 1 tablet by ORAL route as directed - follow package instructions; 1 cp packet; Refills: 0, Product Selection Permitted Signatures: Jaime Carlos PA PA cp Robert Yancey RN RN as6
[2022-08-12 02:52] VITALS: TEMP 98.2
[2022-08-12 02:54] VITALS: BP 125/89; O2SAT 98
== END 2022-08-12 02:13 | disposition home or self-care (01) ==
LOC: ER 23:00
DX: M54.32 Sciatica, left side (principal); I10 Essential (primary) hypertension
CPT/HCPCS: 81003; 96372; 99283; J2001; J1100

== ENCOUNTER 2023-11-19 12:16 | Emergency (ER) | payer OTHER ==
--- OUTSIDE RECORDS SUMMARY | 2023-11-19 12:22 | XMS REPORT | Continuity of Care Document ---
Author Name Unknown Address [address] [facility] [address] [place] [address] [facility] thconnect Address [address] [facility] [address] [place] [address] Care Team Providers Care Construction Accountant Name Role Phone DIANA GONGORA Primary Care Physician Unavailab ELLEN Light Attending Clinician Unavailable Guido Valadez Attending Clinician Unavailable DIANA GONGORA Attending Clinician Unavailable Diana Olson Attending Clinician [phone] Doctor Unassigned, [place] Attending Clinician U navailable LEA_Charli_Seymour_ Attending Clinician Unavaila ble Lab, Ang - Db Attending Clinician Unavailable Eduardo PENA, September A Attending Clinician Unavailab KAREN Conley Attending Clinician Unavailable Karen Soto Attending Clinician [phone] MATTI CONNOR Attending Clinician Unavailab JANE Cruz Attending Clinician Cate Jane Buckley MD Attending Clinician TEDDY ESPINOSA Attending Clinician Unavailable RADIOLOGY Attending Clinician Unavailable Radiology Attending Clinician Unavailable Ellen Yi MD Attending Clinician [phone] Only, Adc Test Attending Clinician Unavailable Rosa Olson MD Attending Clinician [phone] ROSA OLSON Attending Clinician Unavaillamar Coxpanda TUFTER HAND, Matthew Attending Clinician [phone] Nehemiah TUFTER HAND, Luiza Attending Clinician [phone] CHICA MONTANEZ Attending Clinician Unavailable Eliot Attending Clinician Unavailable Teddy Espinosa PA-C Attending Clinician [phone] CHUCK QUESADA Attending Clinician Unavaila rizwana Quesada TUFTER HAND, Chuck Martines Attending Clinician [phone] JERAD ESPINOZA Attending Clinician Unavailable Geronimo Delgadillo DO Attending Clinician [phone] Jerad Espinoza MD Attending Clinician [phone] Nurse, [facility] Attending Clinician Un available Ebannette CHILDERS, Anatoly Attending Clinician [phone] ANATOLY PARKS Attending Clinician Unavailable ELLEN YI Admitting Clinician Unavailable DIANA GONGORA Admitting Clinician Unavailable LEA_Yazan Admitting Clinician Unavaila MATTI Camejo Admitting Clinician Unavailab Ellen Light MD Admitting Clinician [phone] Eliot Admitting Clinician Unavailable CHUCK QUESADA Admitting Clinician Unavaila JERAD Sanders Admitting Clinician Unavailable Jerad Espinoza MD Admitting Clinician [phone] Payers Payer Name Policy Type Policy Number Effective Date Expirati on Date Source [employer] [id number] 2018 00:00:00 [employer] (EPO) [id number] 2011 00:00:00 [employer] [id number] 2011 00:00:00 Problems Condition Name Condition Details Condition Category Status Onset Date Resolution Date Last Treatment Date Treating Clinician Comments Source Morbid obesity Morbid Obesity Problem Active 09-17 00:00: 00 [facility] Pain of right knee joint Pain of Right Knee Joint Problem Active 09-17 00:00: 00 [facility] Osteoarthr itis of right knee joint Osteoarthr itis of Right Knee Joint Problem Active 3-26 00:00: 00 [facility] Primary osteoarthr itis of both knees Primary osteoarthr itis of both knees Disease Active 3-22 00:00: 00 [facility] Follow-up exam Follow-up exam Disease Active 1-26 00:00: 00 [facility] URI, acute URI, acute Disease Active 8-16 00:00: 00 [facility] Body aches Body aches Disease Active 8-16 00:00: 00 [facility] Positive ANITA (antinucle ar antibody) Positive ANITA (antinucle ar antibody) Disease Active 6-11 00:00: 00 [facility] Need for vaccinatio n Need for vaccinatio n Disease Active 2021-06 1-21 00:00: 00 [facility] Exposure to hepatitis A Exposure to hepatitis A Disease Active 6-20 00:00: 00 [facility] Incontinen ce in female Incontinen ce in female Disease Active 6-20 00:00: 00 [facility] Acute midline low back pain with right-side d sciatica Acute midline low back pain with right-side d sciatica Disease Active 5-16 00:00: 00 [facility] Wellness examinatio n Wellness examinatio n Disease Active 2-15 00:00: 00 [facility] Elevated cholestero l Elevated cholestero l Disease Active 2-08 00:00: 00 [facility] Gastroesop hageal reflux disease without esophagiti s Gastroesop hageal reflux disease without esophagiti s Disease Active 2-08 00:00: 00 [facility] Dyslipidem ia Dyslipidem ia Disease Active 2-03 00:00: 00 [facility] Prediabete s Prediabete s Disease Active 2-03 00:00: 00 [facility] Chest pain Chest pain Disease Active 07-27 00:00: 00 [facility] Morbid obesity with body mass index of 40.0-49.9 Morbid obesity with body mass index of 40.0-49.9 Disease Active 2- 00:00: 00 [facility] Hypertensi ve disorder Hypertensi ve disorder Disease Active 12-22 00:00: 00 [facility] Ankle swelling Ankle swelling Disease Active 12-22 00:00: 00 [facility] Allergies, Adverse Reactions, Alerts Allergy Name Allergy Type Status Severity Reaction(s) Onset Date Inactive Date Treating Clinician Comments Source No Known Drug Allergie s DA Active U 08-11 00:00: 00 SJm NO KNOWN ALLERGIE S Drug Class Active [facility] Social History Social Habit Start Date Stop Date Quantity Comments Source Gender identity [facility] Sexual orientation U [facility] History SDOH Alcohol Frequency [facility] History SDOH Alcohol Std Drinks [facility] History SDOH Alcohol Binge [facility] Alcohol intake 2023-10-01 00:00:00 2023-10-01 00:00:00 Current drinker of alcohol (finding) [facility] History of Social function 2023-09-14 00:00:00 2023-09-14 00:00:00 [facility] Exposure to SARS-CoV-2 (event) 2022-09-04 00:00:00 2022-09-14 15:25:00 Not sure [facility] Tobacco use and exposure 2022-05-15 00:00:00 2022-05-15 00:00:00 Smokeless tobacco non-user [facility] Alcohol Comment 2021-08-30 00:00:00 2021-08-30 00:00:00 2-3x a year [facility] Sex Assigned At 1960 00:00:00 1960 00:00:00 [facility] Smoking Status Start Date Stop Date Source Never Smoker [facility] Medications Ordered Medication Name Filled Medication Name Start Date Stop Date Current Medication? Ordering Clinician Indication Dosage Frequency Signature (SIG) Comments Components Source meloxicam 15 mg tablet 09-13 00:00: 00 Yes [id number] 15mg Take 1 tablet by mouth in the morning. [facility] methylPREDN ISolone (MEDROL, JUAN JOSE,) 4 mg tablets 09-13 00:00: 00 09-19 04:59 :00 Yes [id number] Take by mouth SEE-INSTRU CTIONS for 5 days. follow package directions [facility] iopamidol (ISOVUE 370-500 mL) injection 100 mL 07-20 05:15: 00 07-20 05:15 :00 No [id number] 100mL 100 mL, Intravenou s, ONCE, 1 dose, On Tatiana 07/19/23 at 2315, Routine [facility] cefTRIAXone (ROCEPHIN) 1,000 mg in NaCl 0.9% (NS) 100 mL MINI-BAG 07-20 04:15: 00 07-20 05:04 :00 No 1000mg 1,000 mg, IV Piggyback, ONCE, 1 dose, On Tatiana 07/19/23 at 2215, Administer over 30 Minutes, 100 mL
Reas on for Anti-Infec tive: Documented Infection< br>Documen keila Infection Site: Respirator y
Durat ion of Therapy: Other (see Comments) [facility] aspirin tablet 325 mg 07-20 01:00: 00 07-20 03:04 :00 No 325mg 325 mg, Oral, ONCE, 1 dose, On Tatiana 07/19/23 at 1900, STAT [facility] methylPREDN ISolone (MEDROL, JUAN JOSE,) 4 mg tablets 6-08 00:00: 00 07-20 00:00 :00 No [id number] Take by mouth SEE-INSTRU CTIONS. follow package directions . Take with food. Avoid nsaids. [facility] ketorolac (TORADOL) injection 60 mg 09-14 21:45: 00 09-14 21:04 :00 No [id number] 60mg Univer s ity [facility] methylPREDN ISolone (MEDROL, JUAN JOSE,) 4 mg tablets 09-14 00:00: 00 11-30 00:00 :00 No [id number] Take by mouth SEE-INSTRU CTIONS. follow package directions [facility] traMADoL 50 mg tablet 09-14 00:00: 00 09-22 04:59 :00 No [id number] 50mg Take 1 tablet by mouth every 6 (six) hours as needed for Pain (scale 7-10) for up to 7 days. Indication s: acute pain [facility] triamcinolo ne acetonide 0.1 % cream 08-30 00:00: 00 Yes 1[in_us ] Apply 1 Inch to affected area(s) 2 (two) times daily as needed. [facility] methocarbam oL 500 mg tablet 08-22 00:00: 00 Yes [id number] 500mg Take 1 tablet by mouth 2 (two) times daily as needed for Pain (scale 4-6). [facility] lidocaine 5 % (700 mg/patch) patch 08-12 00:00: 00 11-30 00:00 :00 No Does not have [facility] flecainide 50 mg tablet 08-12 00:00: 00 09-14 00:00 :00 No TAKE 1 TABLET BY MOUTH EVERY 8 HOURS NEEDED FOR MUSCLE SPASMS [facility] diclofenac 75 mg EC tablet 08-12 00:00: 00 09-14 00:00 :00 No 75mg Take 1 tablet by mouth in the morning and 1 tablet in the evening. [facility] aspirin 81 mg chewable tablet 2021-06 08:20: 32 Yes 81mg Take 81 mg by mouth daily. 3 x weekly [facility] methocarbam oL 500 mg tablet 2021-06 00:00: 00 08-22 00:00 :00 No [id number] 500mg Take 1 tablet by mouth 2 (two) times daily as needed for Pain (scale 4-6). [facility] ity [facility] lactated ringers IV infusion 1,000 mL 01-02 19:15: 00 Yes 1000mL at 100 mL/hr, 1,000 mL, IV Infusion, CONTINUOUS , Starting on Sun01/02/22 at 1415, Until Discontinu ed, Routine, PACU [facility] ondansetron (ZOFRAN (PF)) injection 4 mg 01-02 19:04: 48 Yes 4mg 4 mg, Slow IV Push, PRN, 1 dose, Starting on Sun01/02/22 at 1404, Until Discontinu ed, Routine, Nausea and Vomiting (N/V), PACU [facility] water for irrigation irrigation solution 01-02 18:27: 00 01-02 19:57 :42 No PRN, Starting on Sun01/02/22 at 1327, Until Sun01/02/22 at 1457, Routine, Intra-op [facility] simethicone (GAS RELIEF (SIMETHICON E)) 40 mg/0.6 mL drops 01-02 18:27: 00 01-02 19:57 :42 No PRN, Starting on Sun01/02/22 at 1327, Until Sun01/02/22 at 1457, Routine, Intra-op [facility] lactated ringers IV infusion 1,000 mL 01-02 16:45: 00 01-02 17:12 :00 No 1000mL at 42 mL/hr, 1,000 mL, IV Infusion, ONCE, 1 dose, On Sun01/02/22 at 1145, Routine, DSU Pre-op [facility] aspirin 81 mg chewable tablet 01-02 14:58: 37 Yes 81mg Take 81 mg by mouth daily. 3 x weekly [facility] aspirin 81 mg chewable tablet 12-27 12:13: 07 Yes 81mg Take 81 mg by mouth daily. 3 x weekly [facility] aspirin 81 mg chewable tablet 12-12 15:59: 31 Yes 81mg Take 81 mg by mouth daily. [facility] hydroCHLORO thiazide 12.5 mg tablet 11-15 00:00: 00 02-16 04:59 :00 No [id number] hydrochlor othiazide 12.5 mg tablet [facility] methocarbam oL 500 mg tablet 11-07 00:00: 00 Yes [id number] 500mg Take 1 tablet by mouth 3 (three) times daily as needed for Pain (scale 4-6). [facility] amoxicillin 875 mg-potassiu m clavulanate 125 mg tablet TAKE 1 TABLET BY MOUTH EVERY 12 HOURS FOR 5 DAYS amoxicillin 875 mg-potassiu m clavulanate 125 mg tablet TAKE 1 TABLET BY MOUTH EVERY 12 HOURS FOR 5 DAYS No amoxicilli n 875 mg-potassi um clavulanat e 125 mg tablet TAKE 1 TABLET BY MOUTH EVERY 12 HOURS FOR 5 DAYS [facility] atorvastati n 20 mg tablet TAKE 1 TABLET BY MOUTH EVERY DAY atorvastati n 20 mg tablet TAKE 1 TABLET BY MOUTH EVERY DAY No atorvastat in 20 mg tablet TAKE 1 TABLET BY MOUTH EVERY DAY [facility] benzonatate 200 mg capsule TAKE 1 CAPSULE BY MOUTH 3 TIMES DAILY NEEDED FOR COUGH FOR UP TO 7 DAYS. benzonatate 200 mg capsule TAKE 1 CAPSULE BY MOUTH 3 TIMES DAILY NEEDED FOR COUGH FOR UP TO 7 DAYS. No benzonatat e 200 mg capsule TAKE 1 CAPSULE BY MOUTH 3 TIMES DAILY NEEDED FOR COUGH FOR UP TO 7 DAYS. [facility] cyclobenzap rine 10 mg tablet TAKE 1 TABLET BY MOUTH EVERY DAY AT BEDTIME NEEDED cyclobenzap rine 10 mg tablet TAKE 1 TABLET BY MOUTH EVERY DAY AT BEDTIME NEEDED No cyclobenza johnny 10 mg tablet TAKE 1 TABLET BY MOUTH EVERY DAY AT BEDTIME NEEDED [facility] cyclobenzap rine 5 mg tablet TAKE 1 TABLET BY MOUTH IN THE MORNING AT NOON AND IN THE EVENING cyclobenzap rine 5 mg tablet TAKE 1 TABLET BY MOUTH IN THE MORNING AT NOON AND IN THE EVENING No cyclobenza johnny 5 mg tablet TAKE 1 TABLET BY MOUTH IN THE MORNING AT NOON AND IN THE EVENING [facility] doxycycline hyclate 100 mg capsule TAKE 1 CAPSULE BY MOUTH IN THE MORNING AND IN THE EVENING FOR 5 DAYS doxycycline hyclate 100 mg capsule TAKE 1 CAPSULE BY MOUTH IN THE MORNING AND IN THE EVENING FOR 5 DAYS No doxycyclin e hyclate 100 mg capsule TAKE 1 CAPSULE BY MOUTH IN THE MORNING AND IN THE EVENING FOR 5 DAYS [facility] ibuprofen 600 mg tablet TAKE 1 TABLET BY MOUTH EVERY 6 (SIX) HOURS NEEDED FOR TEMP > 38.5 C FOR UP TO 14 DAYS. ibuprofen 600 mg tablet TAKE 1 TABLET BY MOUTH EVERY 6 (SIX) HOURS NEEDED FOR TEMP > 38.5 C FOR UP TO 14 DAYS. No ibuprofen 600 mg tablet TAKE 1 TABLET BY MOUTH EVERY 6 (SIX) HOURS NEEDED FOR TEMP > 38.5 C FOR UP TO 14 DAYS. [facility] lisinopril 10 mg-hydrochl orothiazide 12.5 mg tablet TAKE 1 TABLET BY MOUTH EVERY DAY IN THE MORNING lisinopril 10 mg-hydrochl orothiazide 12.5 mg tablet TAKE 1 TABLET BY MOUTH EVERY DAY IN THE MORNING No lisinopril 10 mg-hydroch lorothiazi de 12.5 mg tablet TAKE 1 TABLET BY MOUTH EVERY DAY IN THE MORNING [facility] meloxicam 7.5 mg tablet TAKE 1 TABLET EVERY TWELVE HOURS NEEDED meloxicam 7.5 mg tablet TAKE 1 TABLET EVERY TWELVE HOURS NEEDED No meloxicam 7.5 mg tablet TAKE 1 TABLET EVERY TWELVE HOURS NEEDED [facility] methylpredn isolone 4 mg tablets in a dose pack TAKE 6 TABLETS ON DAY 1 DIRECTED ON PACKAGE AND DECREASE BY 1 TAB EACH DAY FOR A TOTAL OF 6 DAYS methylpredn isolone 4 mg tablets in a dose pack TAKE 6 TABLETS ON DAY 1 DIRECTED ON PACKAGE AND DECREASE BY 1 TAB EACH DAY FOR A TOTAL OF 6 DAYS No methylpred nisolone 4 mg tablets in a dose pack TAKE 6 TABLETS ON DAY 1 DIRECTED ON PACKAGE AND DECREASE BY 1 TAB EACH DAY FOR A TOTAL OF 6 DAYS [facility] Mobic 15 mg tablet Take 1 tablet every day by oral route with meal(s) for 42 days. Take 2 tabs on first day, then 1 tab daily Mobic 15 mg tablet Take 1 tablet every day by oral route with meal(s) for 42 days. Take 2 tabs on first day, then 1 tab daily No 1 Q1D Mobic 15 mg tablet Take 1 tablet every day by oral route with meal(s) for 42 days. Take 2 tabs on first day, then 1 tab daily [facility] Immunizations Ordered Immunization Name Filled Immunization Name Date Status Comments Source Influenza Virus Vaccine Quad IM, Preserv and ABX Free 6 MO-64 YRS 2022-05-15 00:00:00 Completed [facility] SARS-COV-2 COVID-19 VACCINE 12 YRS+, BIVALENT 0.5ML, IM, (MODERNA BOOSTER) 2022-05-15 00:00:00 Completed [facility] Influenza Virus Vaccine Quad IM, Preserv and ABX Free 6 MO-64 YRS 2022-05-15 00:00:00 Completed [facility] SARS-COV-2 COVID-19 VACCINE 12 YRS+, BIVALENT 0.5ML, IM, (MODERNA BOOSTER) 2022-05-15 00:00:00 Completed [facility] Influenza Virus Vaccine Quad IM, Preserv and ABX Free 6 MO-64 YRS 2022-05-15 00:00:00 Completed [facility] SARS-COV-2 COVID-19 VACCINE 12 YRS+, BIVALENT 0.5ML, IM, (MODERNA BOOSTER) 2022-05-15 00:00:00 Completed [facility] Influenza Virus Vaccine Quad IM, Preserv and ABX Free 6 MO-64 YRS 2022-05-15 00:00:00 Completed [facility] SARS-COV-2 COVID-19 VACCINE 12 YRS+, BIVALENT 0.5ML, IM, (MODERNA BOOSTER) 2022-05-15 00:00:00 Completed [facility] Influenza Virus Vaccine Quad IM, Preserv and ABX Free 6 MO-64 YRS 2022-05-15 00:00:00 Completed [facility] SARS-COV-2 COVID-19 VACCINE 12 YRS+, BIVALENT 0.5ML, IM, (MODERNA BOOSTER) 2022-05-15 00:00:00 Completed [facility] Influenza Virus Vaccine Quad IM, Preserv and ABX Free 6 MO-64 YRS 2022-05-15 00:00:00 Completed [facility] SARS-COV-2 COVID-19 VACCINE 12 YRS+, BIVALENT 0.5ML, IM, (MODERNA-BLUE TOP) 2022-05-15 00:00:00 Completed [facility] Influenza Virus Vaccine Quad IM, Preserv and ABX Free 6 MO-64 YRS 2022-05-15 00:00:00 Completed [facility] SARS-COV-2 COVID-19 VACCINE 12 YRS+, BIVALENT 0.5ML, IM, (MODERNA-BLUE TOP) 2022-05-15 00:00:00 Completed [facility] Influenza Virus Vaccine Quad IM, Preserv and ABX Free 6 MO-64 YRS 2022-05-15 00:00:00 Completed [facility] SARS-COV-2 COVID-19 VACCINE 12 YRS+, BIVALENT 0.5ML, IM, (MODERNA-BLUE TOP) 2022-05-15 00:00:00 Completed [facility] Influenza Virus Vaccine Quad IM, Preserv and ABX Free 6 MO-64 YRS 2022-05-15 00:00:00 Completed [facility] SARS-COV-2 COVID-19 VACCINE 12 YRS+, BIVALENT 0.5ML, IM, (MODERNA-BLUE TOP) 2022-05-15 00:00:00 Completed [facility] Influenza Virus Vaccine Quad IM, Preserv and ABX Free 6 MO-64 YRS 2022-05-15 00:00:00 Completed [facility] SARS-COV-2 COVID-19 VACCINE 12 YRS+, BIVALENT 0.5ML, IM, (MODERNA-BLUE TOP) 2022-05-15 00:00:00 Completed [facility] Influenza Virus Vaccine Quad IM, Preserv and ABX Free 6 MO-64 YRS 2022-05-15 00:00:00 Completed [facility] SARS-COV-2 COVID-19 VACCINE 12 YRS+, BIVALENT 0.5ML, IM, (MODERNA-BLUE TOP) 2022-05-15 00:00:00 Completed [facility] Influenza Virus Vaccine Quad IM, Preserv and ABX Free 6 MO-64 YRS 2022-05-15 00:00:00 Completed [facility] SARS-COV-2 COVID-19 VACCINE 12 YRS+, BIVALENT 0.5ML, IM, (MODERNA-BLUE TOP) 2022-05-15 00:00:00 Completed [facility] Influenza Virus Vaccine Quad IM, Preserv and ABX Free 6 MO-64 YRS 2022-05-15 00:00:00 Completed [facility] SARS-COV-2 COVID-19 VACCINE 12 YRS+, BIVALENT 0.5ML, IM, (MODERNA-BLUE TOP) 2022-05-15 00:00:00 Completed [facility] Influenza Virus Vaccine Quad IM, Preserv and ABX Free 6 MO-64 YRS 2022-05-15 00:00:00 Completed [facility] SARS-COV-2 COVID-19 VACCINE 12 YRS+, BIVALENT 0.5ML, IM, (MODERNA-BLUE TOP) 2022-05-15 00:00:00 Completed [facility] Influenza Virus Vaccine Quad IM, Preserv and ABX Free 6 MO-64 YRS 2022-05-15 00:00:00 Completed [facility] SARS-COV-2 COVID-19 VACCINE 12 YRS+, BIVALENT 0.5ML, IM, (MODERNA-BLUE TOP) 2022-05-15 00:00:00 Completed [facility] Influenza Virus Vaccine Quad IM, Preserv and ABX Free 6 MO-64 YRS 2022-05-15 00:00:00 Completed [facility] SARS-COV-2 COVID-19 VACCINE 12 YRS+, BIVALENT 0.5ML, IM, (MODERNA-BLUE TOP) 2022-05-15 00:00:00 Completed [facility] Influenza Virus Vaccine Quad IM, Preserv and ABX Free 6 MO-64 YRS 2022-05-15 00:00:00 Completed [facility] SARS-COV-2 COVID-19 VACCINE 12 YRS+, BIVALENT 0.5ML, IM, (MODERNA-BLUE TOP) 2022-05-15 00:00:00 Completed [facility] Influenza Virus Vaccine Quad IM, Preserv and ABX Free 6 MO-64 YRS 2022-05-15 00:00:00 Completed [facility] SARS-COV-2 COVID-19 VACCINE 12 YRS+, BIVALENT 0.5ML, IM, (MODERNA-BLUE TOP) 2022-05-15 00:00:00 Completed [facility] Influenza Virus Vaccine Quad IM, Preserv and ABX Free 6 MO-64 YRS 2022-05-15 00:00:00 Completed [facility] SARS-COV-2 COVID-19 VACCINE 12 YRS+, BIVALENT 0.5ML, IM, (MODERNA-BLUE TOP) 2022-05-15 00:00:00 Completed [facility] Influenza Virus Vaccine Quad IM, Preserv and ABX Free 6 MO-64 YRS 2022-05-15 00:00:00 Completed [facility] SARS-COV-2 COVID-19 VACCINE 12 YRS+, BIVALENT 0.5ML, IM, (MODERNA-BLUE TOP) 2022-05-15 00:00:00 Completed [facility] Influenza Virus Vaccine Quad IM, Preserv and ABX Free 6 MO-64 YRS 2022-05-15 00:00:00 Completed [facility] SARS-COV-2 COVID-19 VACCINE 12 YRS+, BIVALENT 0.5ML, IM, (MODERNA-BLUE TOP) 2022-05-15 00:00:00 Completed [facility] Influenza Virus Vaccine Quad IM, Preserv and ABX Free 6 MO-64 YRS 2022-05-15 00:00:00 Completed [facility] SARS-COV-2 COVID-19 VACCINE 12 YRS+, BIVALENT 0.5ML, IM, (MODERNA-BLUE TOP) 2022-05-15 00:00:00 Completed [facility] Influenza Virus Vaccine Quad IM, Preserv and ABX Free 6 MO-64 YRS 2022-05-15 00:00:00 Completed [facility] SARS-COV-2 COVID-19 VACCINE 12 YRS+, BIVALENT 0.5ML, IM, (MODERNA-BLUE TOP) 2022-05-15 00:00:00 Completed [facility] Influenza Virus Vaccine Quad IM, Preserv and ABX Free 6 MO-64 YRS 2022-05-15 00:00:00 Completed [facility] SARS-COV-2 COVID-19 VACCINE 12 YRS+, BIVALENT 0.5ML, IM, (MODERNA-BLUE TOP) 2022-05-15 00:00:00 Completed [facility] Influenza Virus Vaccine Quad IM, Preserv and ABX Free 6 MO-64 YRS 2022-05-15 00:00:00 Completed [facility] SARS-COV-2 COVID-19 VACCINE 12 YRS+, BIVALENT 0.5ML, IM, (MODERNA-BLUE TOP) 2022-05-15 00:00:00 Completed [facility] Influenza Virus Vaccine Quad IM, Preserv and ABX Free 6 MO-64 YRS 2022-05-15 00:00:00 Completed [facility] SARS-COV-2 COVID-19 VACCINE 12 YRS+, BIVALENT 0.5ML, IM, (MODERNA-BLUE TOP) 2022-05-15 00:00:00 Completed [facility] Influenza Virus Vaccine Quad IM, Preserv and ABX Free 6 MO-64 YRS 2022-05-15 00:00:00 Completed [facility] SARS-COV-2 COVID-19 VACCINE 12 YRS+, BIVALENT 0.5ML, IM, (MODERNA BOOSTER) 2022-05-15 00:00:00 Completed [facility] Influenza Virus Vaccine Quad IM, Preserv and ABX Free 6 MO-64 YRS 2022-05-15 00:00:00 Completed [facility] SARS-COV-2 COVID-19 VACCINE 12 YRS+, BIVALENT 0.5ML, IM, (MODERNA BOOSTER) 2022-05-15 00:00:00 Completed [facility] Influenza Virus Vaccine Quad IM, Preserv and ABX Free 6 MO-64 YRS 2022-05-15 00:00:00 Completed [facility] SARS-COV-2 COVID-19 VACCINE 12 YRS+, BIVALENT 0.5ML, IM, (MODERNA BOOSTER) 2022-05-15 00:00:00 Completed [facility] Influenza Virus Vaccine Quad IM, Preserv and ABX Free 6 MO-64 YRS 2022-05-15 00:00:00 Completed [facility] SARS-COV-2 COVID-19 VACCINE 12 YRS+, BIVALENT 0.5ML, IM, (MODERNA BOOSTER) 2022-05-15 00:00:00 Completed [facility] Influenza Virus Vaccine Quad IM, Preserv and ABX Free 6 MO-64 YRS 2022-05-15 00:00:00 Completed [facility] SARS-COV-2 COVID-19 VACCINE 12 YRS+, BIVALENT 0.5ML, IM, (MODERNA BOOSTER) 2022-05-15 00:00:00 Completed [facility] TDAP 2021-08-09 00:00:00 Completed [facility] TDAP 2021-08-09 00:00:00 Completed [facility] TDAP 2021-08-09 00:00:00 Completed [facility] 2021-08-09 00:00:00 Completed [facility] 2021-08-09 00:00:00 Completed [facility] 2021-08-09 00:00:00 Completed [facility] 2021-08-09 00:00:00 Completed [facility] 2021-08-09 00:00:00 Completed [facility] 2021-08-09 00:00:00 Completed [facility] 2021-08-09 00:00:00 [facility] [facility]:00:00 Completed [facility] TDAP 2021-08-09 00:00:00 Completed [facility] TDAP 2021-08-09 00:00:00 Completed [facility] TDAP 2021-08-09 00:00:00 Completed [facility] TDAP 2021-08-09 00:00:00 Completed [facility] TDAP 2021-08-09 00:00:00 Completed [facility] TDAP 2021-08-09 00:00:00 Completed [facility] TDAP 2021-08-09 00:00:00 Completed [facility] TDAP 2021-08-09 00:00:00 Completed [facility] TDAP 2021-08-09 00:00:00 Completed [facility] TDAP 2021-08-09 00:00:00 Completed [facility] TDAP 2021-08-09 00:00:00 Completed [facility] TDAP 2021-08-09 00:00:00 Completed [facility] TDAP 2021-08-09 00:00:00 Completed [facility] TDAP 2021-08-09 00:00:00 Completed [facility] TDAP 2021-08-09 00:00:00 Completed [facility] TDAP 2021-08-09 00:00:00 Completed [facility] TDAP 2021-08-09 00:00:00 Completed [facility] TDAP 2021-08-09 00:00:00 Completed [facility] TDAP 2021-08-09 00:00:00 Completed [facility] TDAP 2021-08-09 00:00:00 Completed [facility] TDAP 2021-08-09 00:00:00 Completed [facility] TDAP 2021-08-09 00:00:00 Completed [facility] TDAP 2021-08-09 00:00:00 Completed [facility] TDAP 2021-08-09 00:00:00 Completed [facility] TDAP 2021-08-09 00:00:00 Completed [facility] TDAP 2021-08-09 00:00:00 Completed [facility] TDAP 2021-08-09 00:00:00 Completed [facility] TDAP 2021-08-09 00:00:00 Completed [facility] SARS-COV-2 COVID-19 MODERNA 12+ YRS VACCINE 2021-05-17 00:00:00 Completed [facility] SARS-COV-2 COVID-19 MODERNA 12+ YRS VACCINE 2021-05-17 00:00:00 Completed [facility] SARS-COV-2 COVID-19 MODERNA 12+ YRS VACCINE 2021-05-17 00:00:00 Completed [facility] SARS-COV-2 COVID-19 MODERNA 12+ YRS VACCINE 2021-05-17 00:00:00 Completed [facility] SARS-COV-2 COVID-19 MODERNA 12+ YRS VACCINE 2021-05-17 00:00:00 Completed [facility] SARS-COV-2 COVID-19 MODERNA 12+ YRS VACCINE 2021-05-17 00:00:00 Completed [facility] SARS-COV-2 COVID-19 MODERNA 12+ YRS VACCINE 2021-05-17 00:00:00 Completed [facility] SARS-COV-2 COVID-19 MODERNA 12+ YRS VACCINE 2021-05-17 00:00:00 Completed [facility] SARS-COV-2 COVID-19 MODERNA 12+ YRS VACCINE 2021-05-17 00:00:00 Completed [facility] SARS-COV-2 COVID-19 MODERNA 12+ YRS VACCINE 2021-05-17 00:00:00 Completed [facility] SARS-COV-2 COVID-19 MODERNA 12+ YRS VACCINE 2021-05-17 00:00:00 Completed [facility] SARS-COV-2 COVID-19 MODERNA 12+ YRS VACCINE 2021-05-17 00:00:00 Completed [facility] SARS-COV-2 COVID-19 MODERNA 12+ YRS VACCINE 2021-05-17 00:00:00 Completed [facility] SARS-COV-2 COVID-19 MODERNA 12+ YRS VACCINE 2021-05-17 00:00:00 Completed [facility] SARS-COV-2 COVID-19 MODERNA 12+ YRS VACCINE 2021-05-17 00:00:00 Completed [facility] SARS-COV-2 COVID-19 MODERNA 12+ YRS VACCINE 2021-05-17 00:00:00 Completed [facility] SARS-COV-2 COVID-19 MODERNA 12+ YRS VACCINE 2021-05-17 00:00:00 Completed [facility] SARS-COV-2 COVID-19 MODERNA 12+ YRS VACCINE 2021-05-17 00:00:00 Completed [facility] SARS-COV-2 COVID-19 MODERNA 12+ YRS VACCINE 2021-05-17 00:00:00 Completed [facility] SARS-COV-2 COVID-19 MODERNA 12+ YRS VACCINE 2021-05-17 00:00:00 Completed [facility] SARS-COV-2 COVID-19 MODERNA 12+ YRS VACCINE 2021-05-17 00:00:00 Completed [facility] SARS-COV-2 COVID-19 MODERNA 12+ YRS VACCINE 2021-05-17 00:00:00 Completed [facility] SARS-COV-2 COVID-19 MODERNA 12+ YRS VACCINE 2021-05-17 00:00:00 Completed [facility] SARS-COV-2 COVID-19 MODERNA 12+ YRS VACCINE 2021-05-17 00:00:00 Completed [facility] SARS-COV-2 COVID-19 MODERNA 12+ YRS VACCINE 2021-05-17 00:00:00 Completed [facility] SARS-COV-2 COVID-19 MODERNA 12+ YRS VACCINE 2021-05-17 00:00:00 Completed [facility] SARS-COV-2 COVID-19 MODERNA VACCINE 2021-05-17 00:00:00 Completed [facility] SARS-COV-2 COVID-19 MODERNA VACCINE 2021-05-17 00:00:00 Completed [facility] SARS-COV-2 COVID-19 MODERNA VACCINE 2021-05-17 00:00:00 Completed [facility] SARS-COV-2 COVID-19 MODERNA VACCINE 2021-05-17 00:00:00 Completed [facility] SARS-COV-2 COVID-19 MODERNA VACCINE 2021-05-17 00:00:00 Completed [facility] SARS-COV-2 COVID-19 MODERNA VACCINE 2021-05-17 00:00:00 Completed [facility] SARS-COV-2 COVID-19 MODERNA VACCINE 2021-05-17 00:00:00 Completed [facility] SARS-COV-2 COVID-19 MODERNA 12+ YRS VACCINE 2021-05-17 00:00:00 Completed [facility] SARS-COV-2 COVID-19 MODERNA 12+ YRS VACCINE 2021-05-17 00:00:00 Completed [facility] SARS-COV-2 COVID-19 MODERNA 12+ YRS VACCINE 2021-05-17 00:00:00 Completed [facility] SARS-COV-2 COVID-19 MODERNA 12+ YRS VACCINE 2021-05-17 00:00:00 Completed [facility] SARS-COV-2 COVID-19 MODERNA 12+ YRS VACCINE 2021-05-17 00:00:00 Completed [facility] SARS-COV-2 COVID-19 MODERNA 12+ YRS VACCINE 2021-05-17 00:00:00 Completed [facility] Influenza High Dose 2021-04-25 00:00:00 Completed [facility] Influenza High Dose 2021-04-25 00:00:00 Completed [facility] Influenza High Dose 2021-04-25 00:00:00 Completed [facility] Influenza High Dose 2021-04-25 00:00:00 Completed [facility] Influenza High Dose 2021-04-25 00:00:00 Completed [facility] Influenza High Dose 2021-04-25 00:00:00 Completed [facility] Influenza High Dose 2021-04-25 00:00:00 Completed [facility] Influenza High Dose 2021-04-25 00:00:00 Completed [facility] Influenza High Dose 2021-04-25 00:00:00 Completed [facility] Influenza High Dose 2021-04-25 00:00:00 Completed [facility] Influenza High Dose 2021-04-25 00:00:00 Completed [facility] Influenza High Dose 2021-04-25 00:00:00 Completed [facility] Influenza High Dose 2021-04-25 00:00:00 Completed [facility] Influenza High Dose 2021-04-25 00:00:00 Completed [facility] Influenza High Dose 2021-04-25 00:00:00 Completed [facility] Influenza High Dose 2021-04-25 00:00:00 Completed [facility] Influenza High Dose 2021-04-25 00:00:00 Completed [facility] Influenza High Dose 2021-04-25 00:00:00 Completed [facility] Influenza High Dose 2021-04-25 00:00:00 Completed [facility] Influenza High Dose 2021-04-25 00:00:00 Completed [facility] Influenza High Dose 2021-04-25 00:00:00 Completed [facility] Influenza High Dose 2021-04-25 00:00:00 Completed [facility] Influenza High Dose 2021-04-25 00:00:00 Completed [facility] Influenza High Dose 2021-04-25 00:00:00 Completed [facility] Influenza High Dose 2021-04-25 00:00:00 Completed [facility] Influenza High Dose 2021-04-25 00:00:00 Completed [facility] Influenza High Dose 2021-04-25 00:00:00 Completed [facility] Influenza High Dose 2021-04-25 00:00:00 Completed [facility] Influenza High Dose 2021-04-25 00:00:00 Completed [facility] Influenza High Dose 2021-04-25 00:00:00 Completed [facility] Influenza High Dose 2021-04-25 00:00:00 Completed [facility] Influenza High Dose 2021-04-25 00:00:00 Completed [facility] Influenza High Dose 2021-04-25 00:00:00 Completed [facility] Influenza High Dose 2021-04-25 00:00:00 Completed [facility] Influenza High Dose 2021-04-25 00:00:00 Completed [facility] Influenza High Dose 2021-04-25 00:00:00 Completed [facility] Influenza High Dose 2021-04-25 00:00:00 Completed [facility] Influenza High Dose 2021-04-25 00:00:00 Completed [facility] Influenza High Dose 2021-04-25 00:00:00 Completed [facility] SARS-COV-2 COVID-19 MODERNA 12+ YRS VACCINE 2020-09-01 00:00:00 Completed [facility] SARS-COV-2 COVID-19 MODERNA 12+ YRS VACCINE 2020-09-01 00:00:00 Completed [facility] SARS-COV-2 COVID-19 MODERNA 12+ YRS VACCINE 2020-09-01 00:00:00 Completed [facility] SARS-COV-2 COVID-19 MODERNA 12+ YRS VACCINE 2020-09-01 00:00:00 Completed [facility] SARS-COV-2 COVID-19 MODERNA 12+ YRS VACCINE 2020-09-01 00:00:00 Completed [facility] SARS-COV-2 COVID-19 MODERNA 12+ YRS VACCINE 2020-09-01 00:00:00 Completed [facility] SARS-COV-2 COVID-19 MODERNA 12+ YRS VACCINE 2020-09-01 00:00:00 Completed [facility] SARS-COV-2 COVID-19 MODERNA 12+ YRS VACCINE 2020-09-01 00:00:00 Completed [facility] SARS-COV-2 COVID-19 MODERNA 12+ YRS VACCINE 2020-09-01 00:00:00 Completed [facility] SARS-COV-2 COVID-19 MODERNA 12+ YRS VACCINE 2020-09-01 00:00:00 Completed [facility] SARS-COV-2 COVID-19 MODERNA 12+ YRS VACCINE 2020-09-01 00:00:00 Completed [facility] SARS-COV-2 COVID-19 MODERNA 12+ YRS VACCINE 2020-09-01 00:00:00 Completed [facility] SARS-COV-2 COVID-19 MODERNA 12+ YRS VACCINE 2020-09-01 00:00:00 Completed [facility] SARS-COV-2 COVID-19 MODERNA 12+ YRS VACCINE 2020-09-01 00:00:00 Completed [facility] SARS-COV-2 COVID-19 MODERNA 12+ YRS VACCINE 2020-09-01 00:00:00 Completed [facility] SARS-COV-2 COVID-19 MODERNA 12+ YRS VACCINE 2020-09-01 00:00:00 Completed [facility] SARS-COV-2 COVID-19 MODERNA 12+ YRS VACCINE 2020-09-01 00:00:00 Completed [facility] SARS-COV-2 COVID-19 MODERNA 12+ YRS VACCINE 2020-09-01 00:00:00 Completed [facility] SARS-COV-2 COVID-19 MODERNA 12+ YRS VACCINE 2020-09-01 00:00:00 Completed [facility] SARS-COV-2 COVID-19 MODERNA 12+ YRS VACCINE 2020-09-01 00:00:00 Completed [facility] SARS-COV-2 COVID-19 MODERNA 12+ YRS VACCINE 2020-09-01 00:00:00 Completed [facility] SARS-COV-2 COVID-19 MODERNA 12+ YRS VACCINE 2020-09-01 00:00:00 Completed [facility] SARS-COV-2 COVID-19 MODERNA 12+ YRS VACCINE 2020-09-01 00:00:00 Completed [facility] SARS-COV-2 COVID-19 MODERNA 12+ YRS VACCINE 2020-09-01 00:00:00 Completed [facility] SARS-COV-2 COVID-19 MODERNA 12+ YRS VACCINE 2020-09-01 00:00:00 Completed [facility] SARS-COV-2 COVID-19 MODERNA 12+ YRS VACCINE 2020-09-01 00:00:00 Completed [facility] SARS-COV-2 COVID-19 MODERNA VACCINE 2020-09-01 00:00:00 Completed [facility] SARS-COV-2 COVID-19 MODERNA VACCINE 2020-09-01 00:00:00 Completed [facility] SARS-COV-2 COVID-19 MODERNA VACCINE 2020-09-01 00:00:00 Completed [facility] SARS-COV-2 COVID-19 MODERNA VACCINE 2020-09-01 00:00:00 Completed [facility] SARS-COV-2 COVID-19 MODERNA VACCINE 2020-09-01 00:00:00 Completed [facility] SARS-COV-2 COVID-19 MODERNA VACCINE 2020-09-01 00:00:00 Completed [facility] SARS-COV-2 COVID-19 MODERNA VACCINE 2020-09-01 00:00:00 Completed [facility] SARS-COV-2 COVID-19 MODERNA 12+ YRS VACCINE 2020-09-01 00:00:00 Completed [facility] SARS-COV-2 COVID-19 MODERNA 12+ YRS VACCINE 2020-09-01 00:00:00 Completed [facility] SARS-COV-2 COVID-19 MODERNA 12+ YRS VACCINE 2020-09-01 00:00:00 Completed [facility] SARS-COV-2 COVID-19 MODERNA 12+ YRS VACCINE 2020-09-01 00:00:00 Completed [facility] SARS-COV-2 COVID-19 MODERNA 12+ YRS VACCINE 2020-09-01 00:00:00 Completed [facility] SARS-COV-2 COVID-19 MODERNA 12+ YRS VACCINE 2020-09-01 00:00:00 Completed [facility] SARS-COV-2 COVID-19 MODERNA 12+ YRS VACCINE 2020-07-30 00:00:00 Completed [facility] SARS-COV-2 COVID-19 MODERNA 12+ YRS VACCINE 2020-07-30 00:00:00 Completed [facility] SARS-COV-2 COVID-19 MODERNA 12+ YRS VACCINE 2020-07-30 00:00:00 Completed [facility] SARS-COV-2 COVID-19 MODERNA 12+ YRS VACCINE 2020-07-30 00:00:00 Completed [facility] SARS-COV-2 COVID-19 MODERNA 12+ YRS VACCINE 2020-07-30 00:00:00 Completed [facility] SARS-COV-2 COVID-19 MODERNA 12+ YRS VACCINE 2020-07-30 00:00:00 Completed [facility] SARS-COV-2 COVID-19 MODERNA 12+ YRS VACCINE 2020-07-30 00:00:00 Completed [facility] SARS-COV-2 COVID-19 MODERNA 12+ YRS VACCINE 2020-07-30 00:00:00 Completed [facility] SARS-COV-2 COVID-19 MODERNA 12+ YRS VACCINE 2020-07-30 00:00:00 Completed [facility] SARS-COV-2 COVID-19 MODERNA 12+ YRS VACCINE 2020-07-30 00:00:00 Completed [facility] SARS-COV-2 COVID-19 MODERNA 12+ YRS VACCINE 2020-07-30 00:00:00 Completed [facility] SARS-COV-2 COVID-19 MODERNA 12+ YRS VACCINE 2020-07-30 00:00:00 Completed [facility] SARS-COV-2 COVID-19 MODERNA 12+ YRS VACCINE 2020-07-30 00:00:00 Completed [facility] SARS-COV-2 COVID-19 MODERNA 12+ YRS VACCINE 2020-07-30 00:00:00 Completed [facility] SARS-COV-2 COVID-19 MODERNA 12+ YRS VACCINE 2020-07-30 00:00:00 Completed [facility] SARS-COV-2 COVID-19 MODERNA 12+ YRS VACCINE 2020-07-30 00:00:00 Completed [facility] SARS-COV-2 COVID-19 MODERNA 12+ YRS VACCINE 2020-07-30 00:00:00 Completed [facility] SARS-COV-2 COVID-19 MODERNA 12+ YRS VACCINE 2020-07-30 00:00:00 Completed [facility] SARS-COV-2 COVID-19 MODERNA 12+ YRS VACCINE 2020-07-30 00:00:00 Completed [facility] SARS-COV-2 COVID-19 MODERNA 12+ YRS VACCINE 2020-07-30 00:00:00 Completed [facility] SARS-COV-2 COVID-19 MODERNA 12+ YRS VACCINE 2020-07-30 00:00:00 Completed [facility] SARS-COV-2 COVID-19 MODERNA 12+ YRS VACCINE 2020-07-30 00:00:00 Completed [facility] SARS-COV-2 COVID-19 MODERNA 12+ YRS VACCINE 2020-07-30 00:00:00 Completed [facility] SARS-COV-2 COVID-19 MODERNA 12+ YRS VACCINE 2020-07-30 00:00:00 Completed [facility] SARS-COV-2 COVID-19 MODERNA 12+ YRS VACCINE 2020-07-30 00:00:00 Completed [facility] SARS-COV-2 COVID-19 MODERNA 12+ YRS VACCINE 2020-07-30 00:00:00 Completed [facility] SARS-COV-2 COVID-19 MODERNA VACCINE 2020-07-30 00:00:00 Completed [facility] SARS-COV-2 COVID-19 MODERNA VACCINE 2020-07-30 00:00:00 Completed [facility] SARS-COV-2 COVID-19 MODERNA VACCINE 2020-07-30 00:00:00 Completed [facility] SARS-COV-2 COVID-19 MODERNA VACCINE 2020-07-30 00:00:00 Completed [facility] SARS-COV-2 COVID-19 MODERNA VACCINE 2020-07-30 00:00:00 Completed [facility] SARS-COV-2 COVID-19 MODERNA VACCINE 2020-07-30 00:00:00 Completed [facility] SARS-COV-2 COVID-19 MODERNA VACCINE 2020-07-30 00:00:00 Completed [facility] SARS-COV-2 COVID-19 MODERNA 12+ YRS VACCINE 2020-07-30 00:00:00 Completed [facility] SARS-COV-2 COVID-19 MODERNA 12+ YRS VACCINE 2020-07-30 00:00:00 Completed [facility] SARS-COV-2 COVID-19 MODERNA 12+ YRS VACCINE 2020-07-30 00:00:00 Completed [facility] SARS-COV-2 COVID-19 MODERNA 12+ YRS VACCINE 2020-07-30 00:00:00 Completed [facility] SARS-COV-2 COVID-19 MODERNA 12+ YRS VACCINE 2020-07-30 00:00:00 Completed [facility] SARS-COV-2 COVID-19 MODERNA 12+ YRS VACCINE 2020-07-30 00:00:00 Completed [facility] Influenza High Dose Unknown Completed [facility] TDAP Unknown Completed [facility] Influenza Virus Vaccine Quad IM, Preserv and ABX Free 6 MO-64 YRS (FLUCELVAX) Unknown Completed [facility] SARS-COV-2 COVID-19 VACCINE 12 YRS+, BIVALENT 0.5ML, IM, (MODERNA-BLUE TOP) Unknown Completed [facility] Influenza Virus Vaccine Quad ID 18-64 YRS Unknown Completed [facility] Zoster(Zostavax)(Jeaneth kothariles) Unknown Completed [facility] SARS-COV-2 COVID 19 [place] SUCROSE VACCINE 12+, , 0.3 ML (30 MCG), IM PFIZER (HOOVER TOP) Unknown Completed [facility] Pneumococcal 20 Conjugate, PCV20 (Prevnar 20) Unknown Completed [facility] SARS-COV-2 COVID-19 MODERNA 12+ YRS VACCINE Unknown Completed [facility] SARS-COV-2 COVID-19 MODERNA 12+ YRS VACCINE Unknown Completed [facility] SARS-COV-2 COVID-19 MODERNA 12+ YRS VACCINE Unknown Completed [facility] Influenza High Dose Unknown Completed [facility] TDAP Unknown Completed [facility] Influenza Virus Vaccine Quad IM, Preserv and ABX Free 6 MO-64 YRS (FLUCELVAX) Unknown Completed [facility] SARS-COV-2 COVID-19 VACCINE 12 YRS+, BIVALENT 0.5ML, IM, (MODERNA-BLUE TOP) Unknown Completed [facility] Influenza Virus Vaccine Quad ID 18-64 YRS Unknown Completed [facility] Zoster(Zostavax)(Sh ingles) Unknown Completed [facility] SARS-COV-2 COVID 19 [place] SUCROSE VACCINE 12+, [id number], 0.3 ML (30 MCG), IM PFIZER (HOOVER TOP) Unknown Completed [facility] Pneumococcal 20 Conjugate, PCV20 (Prevnar 20) Unknown Completed [facility] SARS-COV-2 COVID-19 MODERNA 12+ YRS VACCINE Unknown Completed [facility] SARS-COV-2 COVID-19 MODERNA 12+ YRS VACCINE Unknown Completed [facility] SARS-COV-2 COVID-19 MODERNA 12+ YRS VACCINE Unknown Completed [facility] Influenza High Dose Unknown Completed [facility] TDAP Unknown Completed [facility] Influenza Virus Vaccine Quad IM, Preserv and ABX Free 6 MO-64 YRS (FLUCELVAX) Unknown Completed [facility] SARS-COV-2 COVID-19 VACCINE 12 YRS+, BIVALENT 0.5ML, IM, (MODERNA-BLUE TOP) Unknown Completed [facility] Influenza Virus Vaccine Quad ID 18-64 YRS Unknown Completed [facility] Zoster(Zostavax)( ingles) Unknown Completed [facility] SARS-COV-2 COVID 19 [place] SUCROSE VACCINE 12+, [phone], 0.3 ML (30 MCG), IM PFIZER (HOOVER TOP) Unknown Completed [facility] Pneumococcal 20 Conjugate, PCV20 (Prevnar 20) Unknown Completed [facility] SARS-COV-2 COVID-19 MODERNA 12+ YRS VACCINE Unknown Completed [facility] SARS-COV-2 COVID-19 MODERNA 12+ YRS VACCINE Unknown Completed [facility] SARS-COV-2 COVID-19 MODERNA 12+ YRS VACCINE Unknown Completed [facility] Influenza High Dose Unknown Completed [facility] TDAP Unknown Completed [facility] Influenza Virus Vaccine Quad IM, Preserv and ABX Free 6 MO-64 YRS (FLUCELVAX) Unknown Completed [facility] SARS-COV-2 COVID-19 VACCINE 12 YRS+, BIVALENT 0.5ML, IM, (MODERNA-BLUE TOP) Unknown Completed [facility] Influenza Virus Vaccine Quad ID 18-64 YRS Unknown Completed [facility] Zoster(Zostavax)(Sh ingles) Unknown Completed [facility] SARS-COV-2 COVID 19 [place] SUCROSE VACCINE 12+, [phone], 0.3 ML (30 MCG), IM PFIZER (HOOVER TOP) Unknown Completed [facility] Pneumococcal 20 Conjugate, PCV20 (Prevnar 20) Unknown Completed [facility] SARS-COV-2 COVID-19 MODERNA 12+ YRS VACCINE Unknown Completed [facility] SARS-COV-2 COVID-19 MODERNA 12+ YRS VACCINE Unknown Completed [facility] SARS-COV-2 COVID-19 MODERNA 12+ YRS VACCINE Unknown Completed [facility] Influenza High Dose Unknown Completed [facility] TDAP Unknown Completed [facility] Influenza Virus Vaccine Quad IM, Preserv and ABX Free 6 MO-64 YRS (FLUCELVAX) Unknown Completed [facility] SARS-COV-2 COVID-19 VACCINE 12 YRS+, BIVALENT 0.5ML, IM, (MODERNA-BLUE TOP) Unknown Completed [facility] Influenza Virus Vaccine Quad ID 18-64 YRS Unknown Completed [facility] Zoster(Zostavax)(Sh ingles) Unknown Completed [facility] SARS-COV-2 COVID 19 [place] SUCROSE VACCINE 12+, [phone], 0.3 ML (30 MCG), IM PFIZER (HOOVER TOP) Unknown Completed [facility] Pneumococcal 20 Conjugate, PCV20 (Prevnar 20) Unknown Completed [facility] SARS-COV-2 COVID-19 MODERNA 12+ YRS VACCINE Unknown Completed [facility] SARS-COV-2 COVID-19 MODERNA 12+ YRS VACCINE Unknown Completed [facility] SARS-COV-2 COVID-19 MODERNA 12+ YRS VACCINE Unknown Completed [facility] Influenza High Dose Unknown Completed [facility] TDAP Unknown Completed [facility] Influenza Virus Vaccine Quad IM, Preserv and ABX Free 6 MO-64 YRS (FLUCELVAX) Unknown Completed [facility] SARS-COV-2 COVID-19 VACCINE 12 YRS+, BIVALENT 0.5ML, IM, (MODERNA-BLUE TOP) Unknown Completed [facility] Influenza Virus Vaccine Quad ID 18-64 YRS Unknown Completed [facility] Zoster(Zostavax)(Sh ingles) Unknown Completed [facility] SARS-COV-2 COVID 19 [place] SUCROSE VACCINE 12+, [phone], 0.3 ML (30 MCG), IM PFIZER (HOOVER TOP) Unknown Completed [facility] Pneumococcal 20 Conjugate, PCV20 (Prevnar 20) Unknown Completed [facility] SARS-COV-2 COVID-19 MODERNA 12+ YRS VACCINE Unknown Completed [facility] SARS-COV-2 COVID-19 MODERNA 12+ YRS VACCINE Unknown Completed [facility] SARS-COV-2 COVID-19 MODERNA 12+ YRS VACCINE Unknown Completed [facility] Influenza High Dose Unknown Completed [facility] TDAP Unknown Completed [facility] Influenza Virus Vaccine Quad IM, Preserv and ABX Free 6 MO-64 YRS (FLUCELVAX) Unknown Completed [facility] SARS-COV-2 COVID-19 VACCINE 12 YRS+, BIVALENT 0.5ML, IM, (MODERNA-BLUE TOP) Unknown Completed [facility] SARS-COV-2 COVID-19 MODERNA 12+ YRS VACCINE Unknown Completed [facility] SARS-COV-2 COVID-19 MODERNA 12+ YRS VACCINE Unknown Completed [facility] SARS-COV-2 COVID-19 MODERNA 12+ YRS VACCINE Unknown [facility] [facility] High Dose Unknown Completed [facility] TDAP Unknown Completed [facility] Influenza Virus Vaccine Quad IM, Preserv and ABX Free 6 MO-64 YRS (FLUCELVAX) Unknown Completed [facility] SARS-COV-2 COVID-19 VACCINE 12 YRS+, BIVALENT 0.5ML, IM, (MODERNA-BLUE TOP) Unknown Completed [facility] SARS-COV-2 COVID-19 MODERNA 12+ YRS VACCINE Unknown Completed [facility] SARS-COV-2 COVID-19 MODERNA 12+ YRS VACCINE Unknown Completed [facility] SARS-COV-2 COVID-19 MODERNA 12+ YRS VACCINE Unknown Completed [facility] Influenza High Dose Unknown Completed [facility] TDAP Unknown Completed [facility] Influenza Virus Vaccine Quad IM, Preserv and ABX Free 6 MO-64 YRS (FLUCELVAX) Unknown Completed [facility] SARS-COV-2 COVID-19 VACCINE 12 YRS+, BIVALENT 0.5ML, IM, (MODERNA-BLUE TOP) Unknown Completed [facility] SARS-COV-2 COVID-19 MODERNA 12+ YRS VACCINE Unknown Completed [facility] SARS-COV-2 COVID-19 MODERNA 12+ YRS VACCINE Unknown Completed [facility] SARS-COV-2 COVID-19 MODERNA 12+ YRS VACCINE Unknown Completed [facility] Influenza High Dose Unknown Completed [facility] TDAP Unknown Completed [facility] Influenza Virus Vaccine Quad IM, Preserv and ABX Free 6 MO-64 YRS (FLUCELVAX) Unknown Completed [facility] SARS-COV-2 COVID-19 VACCINE 12 YRS+, BIVALENT 0.5ML, IM, (MODERNA-BLUE TOP) Unknown Completed [facility] SARS-COV-2 COVID-19 MODERNA 12+ YRS VACCINE Unknown Completed [facility] SARS-COV-2 COVID-19 MODERNA 12+ YRS VACCINE Unknown Completed [facility] SARS-COV-2 COVID-19 MODERNA 12+ YRS VACCINE Unknown Completed [facility] Influenza High Dose Unknown Completed [facility] TDAP Unknown Completed [facility] Influenza Virus Vaccine Quad IM, Preserv and ABX Free 6 MO-64 YRS (FLUCELVAX) Unknown Completed [facility] SARS-COV-2 COVID-19 VACCINE 12 YRS+, BIVALENT 0.5ML, IM, (MODERNA-BLUE TOP) Unknown Completed [facility] SARS-COV-2 COVID-19 MODERNA 12+ YRS VACCINE Unknown Completed [facility] SARS-COV-2 COVID-19 MODERNA 12+ YRS VACCINE Unknown Completed [facility] SARS-COV-2 COVID-19 MODERNA 12+ YRS VACCINE Unknown Completed [facility] Influenza High Dose Unknown Completed [facility] TDAP Unknown Completed [facility] Influenza Virus Vaccine Quad IM, Preserv and ABX Free 6 MO-64 YRS (FLUCELVAX) Unknown Completed [facility] SARS-COV-2 COVID-19 VACCINE 12 YRS+, BIVALENT 0.5ML, IM, (MODERNA-BLUE TOP) Unknown Completed [facility] SARS-COV-2 COVID-19 MODERNA 12+ YRS VACCINE Unknown Completed [facility] SARS-COV-2 COVID-19 MODERNA 12+ YRS VACCINE Unknown Completed [facility] SARS-COV-2 COVID-19 MODERNA 12+ YRS VACCINE Unknown Completed [facility] Influenza High Dose Unknown Completed [facility] TDAP Unknown Completed [facility] Influenza Virus Vaccine Quad IM, Preserv and ABX Free 6 MO-64 YRS (FLUCELVAX) Unknown Completed [facility] SARS-COV-2 COVID-19 VACCINE 12 YRS+, BIVALENT 0.5ML, IM, (MODERNA-BLUE TOP) Unknown Completed [facility] SARS-COV-2 COVID-19 MODERNA 12+ YRS VACCINE Unknown Completed [facility] SARS-COV-2 COVID-19 MODERNA 12+ YRS VACCINE Unknown Completed [facility] SARS-COV-2 COVID-19 MODERNA 12+ YRS VACCINE Unknown Completed [facility] Influenza High Dose Unknown Completed [facility] TDAP Unknown Completed [facility] Influenza Virus Vaccine Quad IM, Preserv and ABX Free 6 MO-64 YRS (FLUCELVAX) Unknown Completed [facility] SARS-COV-2 COVID-19 VACCINE 12 YRS+, BIVALENT 0.5ML, IM, (MODERNA-BLUE TOP) Unknown Completed [facility] SARS-COV-2 COVID-19 MODERNA 12+ YRS VACCINE Unknown Completed [facility] SARS-COV-2 COVID-19 MODERNA 12+ YRS VACCINE Unknown Completed [facility] SARS-COV-2 COVID-19 MODERNA 12+ YRS VACCINE Unknown Completed [facility] Influenza High Dose Unknown Completed [facility] TDAP Unknown Completed [facility] Influenza Virus Vaccine Quad IM, Preserv and ABX Free 6 MO-64 YRS (FLUCELVAX) Unknown Completed [facility] SARS-COV-2 COVID-19 VACCINE 12 YRS+, BIVALENT 0.5ML, IM, (MODERNA-BLUE TOP) Unknown Completed [facility] Influenza Virus Vaccine Quad ID 18-64 YRS Unknown Completed [facility] Zoster(Zostavax)(Sh ingles) Unknown Completed [facility] SARS-COV-2 COVID 19 NAPOLEON SUCROSE VACCINE 12+, [id number], 0.3 ML (30 MCG), IM PFIZER (HOOVER TOP) Unknown Completed [facility] Pneumococcal 20 Conjugate, PCV20 (Prevnar 20) Unknown Completed [facility] SARS-COV-2 COVID-19 MODERNA 12+ YRS VACCINE Unknown Completed [facility] SARS-COV-2 COVID-19 MODERNA 12+ YRS VACCINE Unknown Completed [facility] SARS-COV-2 COVID-19 MODERNA 12+ YRS VACCINE Unknown Completed [facility] Influenza High Dose Unknown Completed [facility] TDAP Unknown Completed [facility] Influenza Virus Vaccine Quad IM, Preserv and ABX Free 6 MO-64 YRS (FLUCELVAX) Unknown Completed [facility] SARS-COV-2 COVID-19 VACCINE 12 YRS+, BIVALENT 0.5ML, IM, (MODERNA-BLUE TOP) Unknown Completed [facility] Influenza Virus Vaccine Quad ID 18-64 YRS Unknown Completed [facility] Zoster(Zostavax)( ingles) Unknown Completed [facility] SARS-COV-2 COVID 19 NAPOLEON SUCROSE VACCINE 12+, [id number], 0.3 ML (30 MCG), IM PFIZER (HOOVER TOP) Unknown Completed [facility] Pneumococcal 20 Conjugate, PCV20 (Prevnar 20) Unknown Completed [facility] SARS-COV-2 COVID-19 MODERNA 12+ YRS VACCINE Unknown Completed [facility] SARS-COV-2 COVID-19 MODERNA 12+ YRS VACCINE Unknown Completed [facility] SARS-COV-2 COVID-19 MODERNA 12+ YRS VACCINE Unknown Completed [facility] Influenza High Dose Unknown Completed [facility] TDAP Unknown Completed [facility] Influenza Virus Vaccine Quad IM, Preserv and ABX Free 6 MO-64 YRS (FLUCELVAX) Unknown Completed [facility] SARS-COV-2 COVID-19 VACCINE 12 YRS+, BIVALENT 0.5ML, IM, (MODERNA-BLUE TOP) Unknown Completed [facility] Influenza Virus Vaccine Quad ID 18-64 YRS Unknown Completed [facility] Zoster(Zostavax)( ingles) Unknown Completed [facility] SARS-COV-2 COVID 19 NAPOLEON SUCROSE VACCINE 12+, [id number], 0.3 ML (30 MCG), IM PFIZER (HOOVER TOP) Unknown Completed [facility] Pneumococcal 20 Conjugate, PCV20 (Prevnar 20) Unknown Completed [facility] SARS-COV-2 COVID-19 MODERNA 12+ YRS VACCINE Unknown Completed [facility] SARS-COV-2 COVID-19 MODERNA 12+ YRS VACCINE Unknown Completed [facility] SARS-COV-2 COVID-19 MODERNA 12+ YRS VACCINE Unknown Completed [facility] Influenza High Dose Unknown Completed [facility] TDAP Unknown Completed [facility] Influenza Virus Vaccine Quad IM, Preserv and ABX Free 6 MO-64 YRS (FLUCELVAX) Unknown Completed [facility] SARS-COV-2 COVID-19 VACCINE 12 YRS+, BIVALENT 0.5ML, IM, (MODERNA-BLUE TOP) Unknown Completed [facility] Influenza Virus Vaccine Quad ID 18-64 YRS Unknown Completed [facility] Zoster(Zostavax)( ingles) Unknown Completed [facility] SARS-COV-2 COVID 19 NAPOLEON SUCROSE VACCINE 12+, [id number], 0.3 ML (30 MCG), IM PFIZER (HOOVER TOP) Unknown Completed [facility] Pneumococcal 20 Conjugate, PCV20 (Prevnar 20) Unknown Completed [facility] SARS-COV-2 COVID-19 MODERNA 12+ YRS VACCINE Unknown Completed [facility] SARS-COV-2 COVID-19 MODERNA 12+ YRS VACCINE Unknown Completed [facility] SARS-COV-2 COVID-19 MODERNA 12+ YRS VACCINE Unknown Completed [facility] Vital Signs Vital Name Observation Time Observation Value Comments S ource BMI (Body Mass Index) 2023-09-18 00:00:00 48.1 kg/m2 [facility] Sports Medicine Height 2023-09-18 00:00:00 66 [in_i] [facility] Body Weight 2023-09-18 00:00:00 298 [lb_av] Alvin [facility] Systolic blood pressure 2023-09-14 13:09:00 139 mm[Hg] [facility] Diastolic blood pressure 2023-09-14 13:09:00 83 mm[Hg] [facility] Heart rate 2023-09-14 13:09:00 74 /min Un[facility] Body temperature 2023-09-14 13:09:00 36.83 Lyly [facility] Respiratory rate 2023-09-14 13:09:00 18 /min [facility] Body height 2023-09-14 13:09:00 [facility] Body [facility] 2023-09-14 13:09:00 135.58 kg Univ [facility] BMI 2023-09-14 13:09:00 48.24 [facility]2 [facility] Oxygen saturation in Arterial blood by Pulse oximetry 2023-09-14 13:09:00 98 /min [facility] Systolic blood pressure 2023-07-20 14:37:00 128 mm[Hg] [facility] Diastolic blood pressure 2023-07-20 14:37:00 82 mm[Hg] [facility] Heart rate 2023-07-20 14:37:00 62 /min [facility] Body temperature 2023-07-20 14:37:00 36.56 Lyly [facility] Respiratory rate 2023-07-20 14:37:00 18 /min [facility] Body height 2023-07-20 14:37:00 167.6 cm [facility] Body weight 2023-07-20 14:37:00 134.219 [facility] BMI 2023-07-20 14:37:00 47.76 kg/m2 [facility] Oxygen saturation in Arterial blood by Pulse oximetry 2023-07-20 14:37:00 99 /min [facility] Systolic blood pressure 2023-07-20 04:00:00 163 mm[Hg] [facility] Diastolic blood pressure 2023-07-20 04:00:00 79 mm[Hg] [facility] Heart rate 2023-07-20 04:00:00 63 /min [facility] Respiratory rate 2023-07-20 04:00:00 23 /min [facility] Oxygen saturation in Arterial blood by Pulse oximetry 2023-07-20 04:00:00 99 /min [facility] Body temperature 2023-07-20 03:00:00 36.83 Lyly [facility] Body height 2023-07-20 00:40:00 167.6 cm [facility] Body weight 2023-07-20 00:40:00 133.811 kg [facility] BMI 2023-07-20 00:40:00 47.61 kg/m2 [facility] Systolic blood pressure 2023-02-07 18:45:00 117 mm[Hg] [facility] Diastolic blood pressure 2023-02-07 18:45:00 64 mm[Hg] [facility] Heart rate 2023-02-07 18:45:00 75 /min [facility] Body temperature 2023-02-07 18:45:00 37.06 Lyly [facility] Body height 2023-02-07 18:45:00 170.2 cm [facility] Body weight 2023-02-07 18:45:00 133.584 kg [facility] BMI 2023-02-07 18:45:00 46.13 kg/m2 [facility] Oxygen saturation in Arterial blood by Pulse oximetry 2023-02-07 18:45:00 99 /min [facility] Systolic blood pressure 2022-11-30 17:42:00 135 mm[Hg] [facility] Diastolic blood pressure 2022-11-30 17:42:00 82 mm[Hg] [facility] Heart rate 2022-11-30 17:42:00 86 /min [facility] Body temperature 2022-11-30 17:42:00 36.67 Lyly [facility] Respiratory rate 2022-11-30 17:42:00 18 /min [facility] Body height 2022-11-30 17:42:00 170.2 cm [facility] Body weight 2022-11-30 17:42:00 135.943 kg [facility] BMI 2022-11-30 17:42:00 46.94 kg/m2 [facility] Oxygen saturation in Arterial blood by Pulse oximetry 2022-11-30 17:42:00 98 /min [facility] Systolic blood pressure 2022-09-14 20:40:00 151 mm[Hg] [facility] Diastolic blood pressure 2022-09-14 20:40:00 81 mm[Hg] [facility] Heart rate 2022-09-14 20:27:00 75 /min [facility] Body temperature 2022-09-14 20:27:00 36.39 Lyly [facility] Respiratory rate 2022-09-14 20:27:00 20 /min [facility] Body height 2022-09-14 20:27:00 170.2 cm [facility] Body weight 2022-09-14 20:27:00 137.032 kg [facility] BMI 2022-09-14 20:27:00 47.32 kg/m2 [facility] Oxygen saturation in Arterial blood by Pulse oximetry 2022-09-14 20:27:00 99 /min [facility] Systolic blood pressure 2022-08-22 14:10:00 119 mm[Hg] [facility] Diastolic blood pressure 2022-08-22 14:10:00 76 mm[Hg] [facility] Heart rate 2022-08-22 14:10:00 84 /min [facility] Body temperature 2022-08-22 14:10:00 36.33 Lyly [facility] Body height 2022-08-22 14:10:00 170.2 cm [facility] Body weight 2022-08-22 14:10:00 133.358 kg [facility] BMI 2022-08-22 14:10:00 46.05 [facility]/m2 [facility] Oxygen saturation in Arterial blood by Pulse oximetry 2022-08-22 14:10:00 99 /min [facility] Systolic blood pressure 2022-05-15 14:20:00 127 mm[Hg] [facility] Diastolic blood pressure 2022-05-15 14:20:00 73 mm[Hg] [facility] Heart rate 2022-05-15 14:20:00 57 /min [facility] Body temperature 2022-05-15 14:20:00 36.67 Lyly [facility] Body height 2022-05-15 14:20:00 170.2 cm [facility] Body weight 2022-05-15 14:20:00 136.986 kg [facility] BMI 2022-05-15 14:20:00 47.30 kg/m2 [facility] Oxygen saturation in Arterial blood by Pulse oximetry 2022-05-15 14:20:00 99 /min [facility] Systolic blood pressure 2022-01-02 19:20:00 139 mm[Hg] [facility] Diastolic blood pressure 2022-01-02 19:20:00 88 mm[Hg] [facility] Respiratory rate 2022-01-02 19:20:00 20 /min [facility] Oxygen saturation in Arterial blood by Pulse oximetry 2022-01-02 19:20:00 100 /min [facility] Heart rate 2022-01-02 19:10:00 65 /min [facility] Body temperature 2022-01-02 18:54:00 36.11 Lyly [facility] Body height 2021-12-20 16:30:00 170.2 cm [facility] Body weight 2021-12-20 16:30:00 132.5 [facility] BMI 2021-12-20 16:30:00 45.74 kg/m2 [facility] Systolic blood pressure 2022-01-02 19:10:00 148 mm[Hg] [facility] Diastolic blood pressure 2022-01-02 19:10:00 86 mm[Hg] [facility] Heart rate 2022-01-02 19:10:00 65 [facility] Respiratory rate 2022-01-02 19:10:00 24 /min [facility] Oxygen saturation in Arterial blood by Pulse oximetry 2022-01-02 19:10:00 100 /min [facility] Body temperature 2022-01-02 18:54:00 36.11 Lyly [facility] Body height 2021-12-20 16:30:00 170.2 cm [facility] Body weight 2021-12-20 16:30:00 132.5 kg [facility] BMI 2021-12-20 16:30:00 45.74 kg/m2 [facility] Systolic blood pressure 2021-12-12 20:59:00 114 mm[Hg] [facility] Diastolic blood pressure 2021-12-12 20:59:00 73 mm[Hg] [facility] Heart rate 2021-12-12 20:59:00 92 /min [facility] Body height 2021-12-12 20:59:00 170.2 cm [facility] Body weight 2021-12-12 20:59:00 132.45 kg [facility] BMI 2021-12-12 20:59:00 45.73 kg/m2 [facility] Oxygen saturation in Arterial blood by Pulse oximetry 2021-12-12 20:59:00 95 /min [facility] Procedures Procedure Date / Time Performed Performing Clinician Source BI ULTRASOUND BREAST LIMITED RIGHT 2023-10-23 20:18:10 Diana Gongora [facility] BI DIAGNOSTIC TOMOSYNTHESIS RIGHT 2023-10-23 19:50:50 Diana Gongora [facility] XR, knee, 1 or 2 view 2023-09-18 00:00:00 [facility] PNEUMOCOCCAL 20 CONJUGATE (PREVNAR 20) VACCINE 2023-09-14 13:26:45 Diana Gongora [facility] SARS-COV-2 COVID 19 NAPOLEON SUCROSE VACCINE 12+, , 0.3 ML (30 MCG), IM PFIZER (HOOVER TOP) 2023-09-14 13:26:18 Diana Gongora [facility] ASSIGNMENT OF BENEFITS 2023-09-14 12:46:05 Docto r Unassigned, [place] [facility] TROPONIN I 2023-07-20 03:02:00 Matti Connor Un [facility] COMP. METABOLIC PANEL ([id number]) 2023-07-20 03:02:00 Matti Connor [facility] CBC WITH DIFF 2023-07-20 03:02:00 [facility] 2023-07-20 03:02:00 Matti Connor Un [facility] N-TERMINAL PRO-BNP 2023-07-20 03:02:00 Lacie Connor ril [facility] ASSIGNMENT OF BENEFITS 2023-07-20 02:30:32 Docto r Unassigned, [place] [facility] NOTICE OF PRIVACY PRACTICES 2023-07-20 00:16:20 Doctor Unassigned, [place] [facility] CONSENT/REFUSAL FOR DIAGNOSIS AND TREATMENT 2023-07-20 00:15:31 Doctor Unassigned, [place] [facility] XR TIBIA FIBULA 2 VW BILATERAL 2022-11-30 20:03:59 Karen Vega [facility] XR ANKLE 3+ VW BILATERAL 2022-11-30 20:03:59 Little Vega [facility] XR FOOT 3+ VW BILATERAL 2022-11-30 20:03:59 Brenda Vega [facility] XR KNEE 3 VW BILATERAL 2022-11-30 20:03:59 Neri Vega [facility] RHEUMATOID FACTOR 2022-11-30 18:44:00 Karen Vega [facility] COMP. METABOLIC PANEL ([id number]) 2022-11-30 18:44:00 Karen Vega [facility] SEDIMENTATION RATE 2022-11-30 18:44:00 Karen Vega [facility] CBC WITH DIFF 2022-11-30 18:44:00 Karen Vega [facility] ASSIGNMENT OF BENEFITS 2022-08-22 13:48:08 Docto r Unassigned, [place] [facility] XR LUMBAR SPINE 2 VW 2022-06-14 22:02:57 Diana Gongora [facility] ASSIGNMENT OF BENEFITS 2022-06-14 21:35:09 Docto r Unassigned, [place] [facility] SARS-COV-2 COVID-19 VACCINE 12 YRS+, BIVALENT 0.5ML, IM (MODERNA BOOSTER) 2022-05-15 14:33:34 Diana Gongora [facility] FLU VACC (), 6 MO-64 YRS, .5ML, IM, QUAD (FLUCELVAX) 2022-05-15 14:32:31 Diana Gongora [facility] COLONOSCOPY (ENDO) 2022-01-02 18:17:22 [facility] 2022-01-02 18:17:22 [facility] 2022-01-02 18:07:00 [facility] ASSIGNMENT OF BENEFITS 2021-12-30 18:55:03 Docto r Unassigned, [place] [facility] POCT URINALYSIS 2021-12[facility]12 [facility]:00[facility] MEDICAL AND SURGICAL PROCEDURES 2021-10-27 05:01:00 Doctor Unassigned, [place] [facility] DISCLOSURE AND CONSENT, MEDICAL AND SURGICAL PROCEDURES 2021-10-27 05:01:00 Doctor Unassigned, [place] [facility] Gallbladder Surgery [facility] Gastrointestinal Surgery [facility] Encounters Start Date/Time End Date/Time Encounter Type Admission Type Attending Clinicians Care Facility Care Department Encounter ID Source 2021-12-06 12:45:26 Outpatient R ELLEN YI [facility] CORIN[facility] [id number] [facility] 2021-08-12 13:30:00 Inpatient Guido Valadez [facility] [id number] [facility] 2023-10-23 13:42:19 2023-10-23 23:59:00 Hospital Encounter Diana Gongora [facility] [id number] [id number] [id number] [facility] 2023-10-23 13:42:04 2023-10-23 23:59:00 [address] [facility] [id number] [facility] 2023-10-23 13:42:04 2023-10-23 23:59:00 Hospital Encounter Diana Gongora [facility] [id number] [id number] [id number] [id number] [facility] 2023-10-03 00:00:00 2023-10-03 00:00:00 Telephone Diana Gongora [facility]?RICHY [facility] [id number] [id number] [id number] [id number] [facility] 2023-10-01 09:43:58 2023-10-01 23:59:00 [address] [facility] [id number] [facility] 2023-10-01 09:40:00 2023-10-01 23:59:00 Hospital Encounter Diana Gongora [facility] [id number] [id number] [id number] [id number] [facility] 2023-09-18 00:00:00 2023-09-18 00:00:00 Patient Secure Msg Doctor Unassigned, [place] [facility] [id number] [id number] 4.2.7.2.686 [id number] [facility] 2023-09-18 00:00:00 2023-09-18 00:00:00 Seymour Augustin MD: [id number] [place] [address] , Ph. [phone] LEA_Raul Bird [facility] [place] - [facility] - FOG_Ofc Pearce [id number] [facility] 2023-09-17 00:00:00 2023-09-17 00:00:00 Outpatient Lee Bird [facility] [id number] [facility] 2023-09-14 09:00:00 2023-09-14 09:08:[address] [facility] [id number] [facility] 2023-09-14 09:00:00 2023-09-14 09:08:51 [employer] Visit Lab, Richard - Praneeth Gongora [facility] WOOD?R[facility]Y [facility] [id number] [id number] 4.2.7.2.686 [id number] [facility] 2023-09-14 08:00:00 2023-09-14 08:50:17 [facility] 1.114 350.1.13.10 4.2.7.2.686 [id number] [facility] 2023-09-14 00:00:00 2023-09-14 00:00:00 Orders Only Doctor Unassigned, [place] [facility] 1..114 350.1.13.10 4.2.7.2.686 [id number] [facility] 2023-09-14 00:00:00 2023-09-14 00:00:00 Letter (Out) [facility] [id number] 350.1.13.10 4.2.7.2.686 [id number] [facility] 2023-09-07 00:00:00 2023-09-07 00:00:00 Pre Visit Outreach Danika Clark [id number] 350.1.13.10 4.2.7.2.686 [id number] [facility] 2023-08-13 00:00:00 2023-08-13 00:00:00 Refill Diana Gongora [facility] [id number] 350.1.13.10 4.2.7.2.686 [id number] [facility] 2023-07-23 13:30:00 2023-07-23 13:30:00 Outpatient R [address]IANA [address]ONGOR[address] [facility] [id number] [facility] 2023-07-20 08:30:00 2023-07-20 08:55:42 Outpatient R [address]EN VEGA [facility] [id number] [facility] 2023-07-20 08:30:00 2023-07-20 08:55:42 Office Visit Diana Gongora Leslie A [facility] [id number] 350.1.13.10 [id number] [id number] [facility] 2023-07-19 18:46:00 2023-07-19 23:42:00 Emergency [facility] [id number] [facility] 2023-07-19 18:46:00 2023-07-19 23:42:00 Emergency Geeta Estefanycharli [facility] 1.2840.114 350.1.13.10 4.2.7.2.686 [id number] [facility] 2023-02-13 00:00:00 2023-02-13 00:00:00 Letter (Out) [facility] N[facility] 1..840.114 350.1.13.10 4.2.7.2.686 [id number] [facility] 2023-02-13 00:00:00 2023-02-13 00:00:00 Refill Rolan [facility]?RICHY [facility] 1..840.114 350.1.13.10 4.2.7.2.686 [id number] [facility] 2023-02-13 00:00:00 2023-02-13 00:00:00 Letter (Out) Rolan Diana [facility] 1..840.114 350.1.13.10 4.2.7.2.686 [id number] [facility] 2023-02-09 00:00:00 2023-02-09 00:00:00 Telephone Rolan Diana [facility]IR?RICHY [facility] 1.2.840.114 350.1.13.10 4.2.7.2.686 [id number] [facility] 2023-02-07 13:30:00 2023-02-07 14:02:48 Outpatient R [address]IANA [facility] [facility] [id number] [facility] 2023-02-07 13:30:00 2023-02-07 14:02:48 Office Visit Diana Gongora [facility] MUIR?RIZWANASamantha [facility] OFF[facility] BU[facility] 1.2.840.114 350.1.13.10 4.2.7.2.686 [id number] [facility] 2023-02-07 00:00:00 2023-02-07 00:00:00 Letter (Out) Diana [facility]RICHY [facility] 1.2.840.114 350.1.13.10 4.2.7.2.686 [id number] [facility] 2023-01-11 00:00:00 2023-01-11 00:00:00 Patient Secure Msg Doctor Unassigned, [place] [facility] 1.2.840.114 350.1.13.10 4.2.7.2.686 [id number] [facility] 2022-12-18 00:00:00 2022-12-18 00:00:00 Telephone Rolan Diana [facility]RICHY [facility] 1.2.840.114 350.1.13.10 4.2.7.2.686 [id number] [facility] 2022-12-07 00:00:00 2022-12-07 00:00:00 Telephone Karen Vega [facility] OFF[facility] 1.2.840.114 350.1.13.10 4.2.7.2.686 [id number] [facility] 2022-12-03 00:00:00 2022-12-03 00:00:00 Telephone Karen [facility]ega [facility] 1.2.840.114 350.1.13.10 4.2.7.2.686 [id number] [facility] 2022-11-30 14:19:22 2022-11-30 23:59:00 Hospital Encounter Karen Vega [facility] 1.2.840.114 350.1.13.10 4.2.7.2.686 [id number] [facility] 2022-11-30 13:30:00 2022-11-30 13:52:[address] [facility] [id number] [facility] 2022-11-30 13:30:00 2022-11-30 13:52:02 [employer] Visit Lab, Richard - Praneeth Karen Vega [facility]?RICHY [facility] OFF[facility] BU[facility] 1.84.114 350.1.13.10 4.2.7.2.686 [id number] [facility] 2022-11-30 13:00:00 2022-11-30 13:26:46 Office Visit Karen Vega [facility] 1.84.114 350.1.13.10 4.2.7.2.686 [id number] [facility] 2022-10-27 13:30:00 2022-10-27 13:30:00 Out[address]NA [address] [facility] [id number] [facility] 2022-10-19 00:00:00 2022-10-19 00:00:00 Outpatient R JANE [facility] [facility] [id number] [facility] 2022-09-14 15:30:00 2022-09-14 16:09:05 Outpatient R [address]ANE [facility] [facility] [id number] [facility] 2022-09-14 15:30:00 2022-09-14 16:09:05 Office Visit Jane Melgar [facility]?RICHY [facility] OFF[facility] BUILD[facility] 1.84.114 350.1.13.10 4.2.7.2.686 [id number] [facility] 2022-09-02 00:00:00 2022-09-02 00:00:00 Patient Secure Msg Doctor Unassigned, [place] [facility] 1.84.114 350.1.13.10 4.2.7.2.686 [id number] [facility] 2022-08-30 09:30:00 2022-08-30 09:30:00 Outpatient R RAYTEDDY MEN[address] [facility] [id number] [facility] 2022-08-22 08:45:00 2022-08-22 09:00:00 [employer] Visit Lab, Ang - Db Ericsamantha [facility]?RICHY [facility] MED[facility] OFFICE BUILDING 1.840.114 350.1.13.10 4.2.7.2.686 [id number] [facility] 2022-08-22 08:00:00 2022-08-22 08:34:23 Outpatient R [address]IANA Paul [facility] [id number] [facility] 2022-08-22 08:00:00 2022-08-22 08:34:23 Office Visit Ericsamantha [facility]?RICHY [facility] OFF[facility] BUILD[facility] 1.840.114 350.1.13.10 4.2.7.2.686 [id number] [facility] 2022-08-22 00:00:00 2022-08-22 00:00:00 Orders Only Doctor Unassigned, [place] [facility] 1.84.114 350.1.13.10 4.2.7.2.686 [id number] [facility] 2022-06-14 15:37:10 2022-06-14 23:59:[address] [facility] [id number] [facility] 2022-06-14 15:37:10 2022-06-14 23:59:00 Hospital Encounter Radiology [facility] 1..114 350.1.13.10 4.2.7.2.686 [id number] [facility] 2022-06-14 00:00:00 2022-06-14 00:00:00 Orders Only Doctor Unassigned, [place] [facility] 1.2.840.114 350.1.13.10 4.2.7.2.686 [id number] [facility] 2022-05-15 08:30:00 2022-05-15 08:59:38 Outpatient R [address]NA [address] [facility] [id number] [facility] 2022-05-15 08:30:00 2022-05-15 08:59:38 Office Visit Rolan Diana [facility] 1.114 350.1.13.10 4.2.7.2.686 [id number] [facility] 2022-05-15 00:00:00 2022-05-15 00:00:00 Letter (Out) Doctor Unassigned, [place] [facility] 1.114 350.1.13.10 4.2.7.2.686 [id number] [facility] 2022-01-02 11:38:00 2022-01-02 14:25:00 Outpatient R ELLEN YI [facility] CORINNE [id number] [facility] 2022-01-02 11:38:00 2022-01-02 14:25:00 Hospital Encounter Ellen Yi [facility] 1.114 350.1.13.10 4.2.7.2.686 [id number] [facility] 2022-01-02 13:15:00 2022-01-02 14:11:00 Surgery Ellen Yi [facility] 1..114 350.1.13.10 4.2.7.2.686 [id number] [facility] 2021-12-30 08:30:00 2021-12-30 08:45:00 Laboratory Only Only, Adc Test Ellen Yi [facility] 1..114 350.1.13.10 4.2.7.2.686 [id number] [facility] 2021-12-30 08:30:00 2021-12-30 08:30:[address] [facility] [id number] [facility] 2021-12-30 08:30:00 2021-12-30 08:30:[address] [facility] [id number] [facility] 2021-12-30 00:00:00 2021-12-30 00:00:00 Orders Only Doctor Unassigned, [place] [facility] 1..840.114 350.1.13.10 4.2.7.2.686 [id number] [facility] 2021-12-12 16:30:00 2021-12-12 16:45:00 [employer] Visit Lab, [facility] WOOD?RICHY [facility] OFF[facility] BUILD[facility] 1.2.840.114 350.1.13.10 4.2.7.2.686 [id number] [facility] 2021-12-12 16:00:00 2021-12-12 16:30:59 Office Visit [facility]ora [facility] OFF[facility] 1.2.840.114 350.1.13.10 4.2.7.2.686 [id number] [facility] 2021-12-12 16:30:00 2021-12-12 16:30:00 Outpatient R [address]NA [address] [facility] [id number] [facility] 2021-12-12 16:30:00 2021-12-12 16:30:[address] [facility] [id number] [facility] 2021-11-14 00:00:00 2021-11-14 00:00:00 Refill Rolan [facility] WOOD?[facility] 1..840.114 350.1.13.10 4.2.7.2.686 [id number] [facility] 2021-11-10 08:45:00 2021-11-10 09:31:31 Office Visit Rosa Olson Little [facility]?RICHY [facility] OFF[facility] BUILD[facility] 1.840.114 350.1.13.10 4.2.7.2.686 [id number] [facility] 2021-11-10 08:45:00 2021-11-10 09:31:31 Outpatient R [address]A [address] [facility] [id number] [facility] 2021-11-10 08:45:00 2021-11-10 08:45:00 [address] [facility] [id number] [facility] 2021-11-10 08:45:00 2021-11-10 08:45:00 Out[address] R [address] [facility] [id number] [facility] 2021-11-07 08:30:00 2021-11-07 08:50:58 Outpatient R [address]IANA [address] [facility] [id number] [facility] 2021-11-07 08:30:00 2021-11-07 08:50:58 Office Visit Diana Gongora [facility] 1..840.114 350.1.13.10 4.2.7.2.686 [id number] [facility] 2021-11-07 08:30:00 2021-11-07 08:50:58 Outpatient R [address]IANA [address] [facility] [id number] [facility] 2021-10-27 11:00:00 2021-10-27 11:30:12 Urgent Care Matthew Weir Cathy [facility] 1..840.114 350.1.13.10 4.2.7.2.686 [id number] [facility] 2021-10-27 09:30:00 2021-10-27 10:14:52 Office Visit Ellen Yi [facility] NAL BUILDING 1..840.114 350.1.13.10 4.2.7.2.686 [id number] [facility] 2021-10-27 09:30:00 2021-10-27 10:14:52 [address] E[address] Y[address] [facility] [id number] [facility] 2021-10-27 09:30:00 2021-10-27 09:30:00 [address] E[address]EN YI [facility] [id number] [facility] 2021-10-04 00:00:00 2021-10-04 00:00:00 Orders Only Doctor Unassigned, [place] [facility] 1..840.114 350.1.13.10 4.2.7.2.686 [id number] [facility] 2021-09-09 09:00:00 2021-09-09 09:15:00 Office Visit Rosa Olson [facility] 1..840.114 350.1.13.10 4.2.7.2.686 [id number] [facility] 2021-09-09 09:00:00 2021-09-09 09:00:[address] [facility] [id number] [facility] 2021-09-09 09:00:00 2021-09-09 09:00:00 [address] [facility] [id number] [facility] 2021-09-09 00:00:00 2021-09-09 00:00:00 Telephone Rosa Olson [facility] 1.2.840.114 350.1.13.10 4.2.7.2.686 [id number] [facility] 2021-09-05 10:30:00 2021-09-05 10:30:00 Outpatient Nemo MONTANEZ BRADFORDGELA [facility] [id number] [facility] 2021-09-02 03:52:00 2021-09-02 03:52:00 Outpatient Eliot [facility] [id number] 2021-08-30 09:00:00 2021-08-30 10:00:48 [facility] [id number] [facility] 2021-08-30 09:00:00 2021-08-30 10:00:48 Office Visit [facility] 1.2.840.114 350.1.13.10 4.2.7.2.686 [id number] [facility] 2021-08-30 09:00:00 2021-08-30 10:00:[address] [facility] [id number] [facility] 2021-08-29 12:43:10 2021-08-29 23:59:[address] [facility] [id number] [facility] 2021-08-29 12:43:10 2021-08-29 23:59:00 Hospital Encounter Chuck Quesada [facility] 1.2.840.114 350.1.13.10 4.2.7.2.686 [id number] [facility] 2021-08-29 12:43:10 2021-08-29 23:59:[address] [facility] [id number] [facility] 2021-08-29 00:00:00 2021-08-29 00:00:00 Orders Only Doctor Unassigned, [place] [facility] 1.2.840.114 350.1.13.10 4.2.7.2.686 [id number] [facility] 2021-08-12 06:32:00 2021-08-12 06:32:00 Outpatient [facility] [id number] [facility] 2021-08-11 13:20:00 2021-08-11 13:20:00 Outpatient CHUCK JIMENEZ [facility] RAD [id number] [facility] 2021-08-11 00:00:00 2021-08-11 00:00:00 Telephone Diana [facility]ora [facility] OFF[facility] 1.2.840.114 350.1.13.10 4.2.7.2.686 [id number] [facility] 2021-08-11 00:00:00 2021-08-11 00:00:00 Telephone Diana Gongora [facility] BUILDING 1.2.840.114 350.1.13.10 4.2.7.2.686 [id number] [facility] 2021-08-09 10:45:00 2021-08-09 11:00:00 [employer] Visit Lab, Ang [facility] 1.2.840.114 350.1.13.10 4.2.7.2.686 [id number] [facility] 2021-08-09 10:45:00 2021-08-09 10:45:00 Out[address] R [address]NA [address] [facility] [id number] [facility] 2021-08-09 10:45:00 2021-08-09 10:45:00 Out[address] R [address] [facility] [id number] [facility] 2021-08-09 09:30:00 2021-08-09 10:33:46 Office Visit [place], [facility] WOOD?RICHY [facility] OFFICE BUILDING 1.2.840.114 350.1.13.10 4.2.7.2.686 [id number] [facility] 2021-08-09 09:30:00 2021-08-09 09:30:00 Outpatient R [address]NA [address] [facility] [id number] [facility] 2021-08-09 00:00:00 2021-08-09 00:00:00 Letter (Out) Diana [facility]ora [facility] OFF[facility] BUILD[facility] 1.2.840.114 350.1.13.10 4.2.7.2.686 [id number] [facility] 2021-08-02 09:00:00 2021-08-02 09:15:00 [employer] Visit Lab, Ang - Db Rolan [facility] WOOD?RICHY [facility] OFFICE BUILDING 1.2.840.114 350.1.13.10 4.2.7.2.686 [id number] [facility] 2021-08-02 09:00:00 2021-08-02 09:00:00 Outpatient R [address]IANA [address] [facility] [id number] [facility] 2021-08-02 09:00:00 2021-08-02 09:00:00 Outpatient R [address]NA [address] [facility] [id number] [facility] 2021-08-02 08:00:00 2021-08-02 08:53:55 Office Visit Rolan [facility] WOOD?RICHY [facility] OFF[facility] BUILD[facility] 1.2.840.114 350.1.13.10 4.2.7.2.686 [id number] [facility] 2021-07-27 17:35:00 2021-07-28 14:56:00 Outpatient X JERAD ESPINOZA [facility] [id number] [facility] 2021-07-27 17:35:00 2021-07-28 14:56:00 Emergency Delgadillo, Jerad Garcia [facility] 1.2.840.114 350.1.13.10 4.2.7.2.686 [id number] [facility] 2021-07-27 17:20:00 2021-07-27 17:40:00 Nurse Visit Nurse, [facility] 1.2.840.114 350.1.13.10 4.2.7.2.686 [id number] [facility] 2021-07-27 17:20:00 2021-07-27 17:20:[address] [facility] [id number] [facility] 2021-07-27 00:00:00 2021-07-27 00:00:00 Orders Only Doctor Unassigned, [place] [facility] 1.2.840.114 350.1.13.10 4.2.7.2.686 [id number] [facility] Results Test Description Test Time Test Comments Results Resul t Comments Source BI ULTRASOUND BREAST LIMITED RIGHT 2023-09-26 0 21:50:05 Examination:BI DIAGNOSTIC TOMOSYNTHESIS RIGHTBI ULTRASOUND BREAST LIMITED RIGHT History:Patient is 63 year old and is seen for: ?Fu. ? Comparisons: 10/01/2023 BI SCREENING TOMOSYNTHESIS BILATERAL and 08/29/2021 BI SCREENING TOMOSYNTHESIS BILATERAL Prior exam with the following findings: Subcentimeter focal asymmetry with associated calcifications identified within the right breast retroareolar region, anterior depth, approximately 4-5 cm from the nipple (CC slice 32, MLO slice 33). CURRENT EXAM: Findings:BI DIAGNOSTIC TOMOSYNTHESIS RIGHTThe right breast has scattered areas of fibroglandular density. There is a 9 mm developing focal asymmetry (with associated coarse calcifications) in the central right breast, middle depth, 5 cm from the nipple; best seen on RML image 46 of 99 and the magnified views. Right breast ultrasound: Survey ultrasound the right breast in the was performed. No sonographic correlate is noted for the focal asymmetry in the central right breast, 5 cm from the nipple. The right breast and right axillary ultrasound is unremarkable. Impression: Right: There is a 9 mm developing focal asymmetry (with associated coarse calcifications) in the central right breast, middle depth, 5 cm from the nipple; best seen on RML image 46 of 99 and the magnified views (no sonographic correlate). ?3D guided biopsy is recommended; BI-RADS 4A. Recommendation:Nba synthesis Biopsy - Right ? BI-RADS Category: Right 4A - Suspicious Abnormality - Biopsy Should Be Considered - Low Suspicion for Malignancy [facility] BI DIAGNOSTIC TOMOSYNTHESIS RIGHT 2023-04-3 0 21:50:05 Examination:BI DIAGNOSTIC TOMOSYNTHESIS RIGHTBI ULTRASOUND BREAST LIMITED RIGHT History:Patient is 63 year old and is seen for: ?Fu. ? Comparisons: 10/01/2023 BI SCREENING TOMOSYNTHESIS BILATERAL and 08/29/2021 BI SCREENING TOMOSYNTHESIS BILATERAL Prior exam with the following findings: Subcentimeter focal asymmetry with associated calcifications identified within the right breast retroareolar region, anterior depth, approximately 4-5 cm from the nipple (CC slice 32, MLO slice 33). CURRENT EXAM: Findings:BI DIAGNOSTIC TOMOSYNTHESIS RIGHTThe right breast has scattered areas of fibroglandular density. There is a 9 mm developing focal asymmetry (with associated coarse calcifications) in the central right breast, middle depth, 5 cm from the nipple; best seen on RML image 46 of 99 and the magnified views. Right breast ultrasound: Survey ultrasound the right breast in the was performed. No sonographic correlate is noted for the focal asymmetry in the central right breast, 5 cm from the nipple. The right breast and right axillary ultrasound is unremarkable. Impression: Right: There is a 9 mm developing focal asymmetry (with associated coarse calcifications) in the central right breast, middle depth, 5 cm from the nipple; best seen on RML image 46 of 99 and the magnified views (no sonographic correlate). ?3D guided biopsy is recommended; BI-RADS 4A. Recommendation:Nba synthesis Biopsy - Right ? BI-RADS Category: Right 4A - Suspicious Abnormality - Biopsy Should Be Considered - Low Suspicion for Malignancy [facility] [id number] 03:55:37* Test Item Value Reference Range Interpretation Comme nts NT-proBNP (test code = 13441-7) 104 pg/mL <=125 Lab Interpretation (test cod e = 56483-9) Normal [facility] (56150)2023-07-20 03:47:37* Test Item Value Reference Range Interpretation Comme nts NA (test code = 9417248452) 142 mmol/L 135-145 K (test code = 0659020218) 3.5 mmol/L 3.5-5.0 CL (test code = 4601988916) 104 mmol/L 98-108 CO2 TOTAL (test code = 6402798254) 30 mmol/L 23-31 AGAP (test code = 7239760289) 8 2-16 BUN (test code = 7635999300) 21 mg/dL 7-23 GLUCOSE (test code = 7529661929) 86 mg/dL 70-110 CREATININE (test code = 3467194150) 0.71 mg/dL 0.50-1.04 TOTAL BILI (test code = 2168158122) 0.5 mg/dL 0.1-1.1 CALCIUM (test code = 4181464992) 9.0 mg/dL 8.6-10.6 T PROTEIN (test code = 9005844713) 8.3 g/dL 6.3-8.2 H ALBUMIN (test code = 7913583911) 4.5 g/dL 3.5-5.0 ALK PHOS (test code = 3532606766) 117 U/L 34-122 ALTv (test code = 1742-6) 20 U/L 5-35 AST(SGOT) (test code = 6806857667) 28 U/L 13-40 eGFR (test code = 51604-7) 97.5 mL/min/1.73m2 CKD-EPI eGFR (2020). Assuming creatinine has been stable day-to-day for at least three months, the eGFR indicates Category G1 (>= 90 mL/min/1.73 m2) Lab Interpretation (test code = 39888-0) Abnormal [facility][id number] 03:42:38* Test Item Value Reference Range Interpretation Comments D-DIMER (test code = 6502253053) 0.43 See_Comment H [Automated message] The system which generated this result transmitted reference range: <0.41 ?g/mL (FEU). The reference range was not used to interpret this result as normal/abnormal. MAGY (test code = MAGY) This test may be used in conjunction with a clinical pretest probability (PTP) assessment model to exclude venous thromboembolism (VTE) in patients suspected of deep venous thrombosis (DVT) and pulmonary embolism (PE) A D-Dimer value less than 0.50 ?g/ml (FEU) has a negative predicative value of 96 to 100% (95% CI)and 97 to 100% (95% CI) as an aid in the diagnosis of deep vein thrombosis (DVT) and pulmonary embolism when there is low or moderate pretest probability of PE or DVT. D-Dimer values are expressed in initial fibrinogen equivalent units (FEU)" The assay results should be used with other information, including the clinical context, in forming a diagnosis. Lab Interpretation (test code = 29046-1) Abnormal [facility] WITH [id number] 03:27:34* Test Item Value Reference Range Interpretation Comme nts WBC (test code = 6690-2) 7.86 See_Comment [Automated [employer]] The system which generated this result transmitted reference range: 4.30 - 11.10 10*3/?L. The reference range was not used to interpret this result as normal/abnormal. RBC (test code = 789-8) 4.63 See_Comment [Automated [employer]] The system which generated this result transmitted reference range: 3.93 - 5.25 10*6/?L. The reference range was not used to interpret this result as normal/abnormal. HGB (test code = 718-7) 12.9 g/dL 11.6-15.0 HCT (test code = 4544-3) 40.9 % 35.7-45.2 MCV (test code = 787-2) 88.3 fL 80.6-95.5 MCH (test code = 785-6) 27.9 pg 25.9-32.8 MCHC (test code = 786-4) 31.5 g/dL 31.6-35.1 L RDW-SD (test code = 48138-8) 44.5 fL 39.0-49.9 RDW-CV (test code = 788-0) 13.8 % 12.0-15.5 PLT (test code = 777-3) 205 See_Comment [Automated messa ge] The system which generated this result transmitted reference range: 166 - 358 10*3/?L. The reference range was not used to interpret this result as normal/abnormal. MPV (test code = 35434-9) 11.7 fL 9.5-12.9 NRBC/100 WBC (test code = 7472479477) 0.0 See_Comment [Automated me ssage] The system which generated this result transmitted reference range: 0.0 - 10.0 /100 WBCs. The reference range was not used to interpret this result as normal/abnormal. NRBC x10^3 (test code = 3167950149) See_Comment [Automated messa ge] The system which generated this result transmitted reference range: 10*3/?L. The reference range was not used to interpret this result as normal/abnormal. GRAN MAT (NEUT) % (test code = 770-8) 48.5 % IMM GRAN % (test code = 7417863908) 0.10 % LYMPH % (test code = 736-9) 40.1 % MONO % (test code = 5905-5) 7.1 % EOS % (test code = 713-8) 3.8 % BASO % (test code = 706-2) 0.4 % GRAN MAT x10^3(ANC) (test code = 0595257901) 3.81 10*3/uL 1.88-7.09 IMM GRAN x10^3 (test code = 5275842043) 0.00-0.06 LYMPH x10^3 (test code = 731-0) 3.15 10*3/uL 1.32-3.29 MONO x10^3 (test code = 742-7) 0.56 10*3/uL 0.33-0.92 EOS x10^3 (test code = 711-2) 0.30 10*3/uL 0.03-0.39 BASO x10^3 (test code = 704-7) 0.03 10*3/uL 0.01-0.07 Lab Interpretation (test code = 17691-0) [facility] KDKSDL4064-87-87 17:20:29* Test Item Value Reference Range Interpretation Comme nts RF (test code = 4785432689) See_Comment [Automated messa ge] The system which generated this result transmitted reference range: <20 IU/mL. The reference range was not used to interpret this result as normal/abnormal. Lab Interpretation (test code = 81369-2) Normal [facility] CenterSED[facility]ATION XRHO8915-38-79 23:49:38* Test Item Value Reference Range Interpretation Comme nts ESR (test code = 27263-3) 22 See_Comment H [Automated messa ge] The system which generated this result transmitted reference range: 0 - 20 mm/HR. The reference range was not used to interpret this result as normal/abnormal. Lab Interpretation (test code = 08697-3) Abnormal [facility]. METABOLIC PANEL (07574)2022-11-30 22:01:34* Test Item Value Reference Range Interpretation Comme nts NA (test code = 5192122863) 141 mmol/L 135-145 K (test code = 7435283911) 3.7 mmol/L 3.5-5.0 CL (test code = 8735501904) 102 mmol/L 98-108 CO2 TOTAL (test code = 2606171935) 33 mmol/L 23-31 H AGAP (test code = 7325399536) 6 2-16 BUN (test code = 5471640825) 18 mg/dL 7-23 GLUCOSE (test code = 6060340128) 107 mg/dL 70-110 CREATININE (test code = 0745769511) 0.75 mg/dL 0.50-1.04 TOTAL BILI (test code = 8155794703) 0.4 mg/dL 0.1-1.1 CALCIUM (test code = 1884159651) 8.9 mg/dL 8.6-10.6 T PROTEIN (test code = 6627985529) 7.1 g/dL 6.3-8.2 ALBUMIN (test code = 8112351962) 3.9 g/dL 3.5-5.0 ALK PHOS (test code = 8366422154) 107 U/L 34-122 ALTv (test code = 1742-6) 19 U/L 5-35 AST(SGOT) (test code = 1079007880) 22 U/L 13-40 eGFR (test code = 2082094008) 78.8 mL/min/1.73m2 MAGY (test code = MAGY) Association of Glomerular Filtration Rate (GFR) and Staging of Kidney Disease* + --+ --+ ------+| GFR (mL/min/1.73 m2) ?| With Kidney Damage ?| ?Without Kidney Damage+ --------+ --------+ +| ?>90 ?| ?Stage one ?| ? Normal ?+ ---+ ---+ -------+| ?60-89 ?| ?Stage two ?| ? Decreased GFR ? + --+ --+ ------+| ?30-59 ?| ?Stage three ?| ? Stage three ? + --+ --+ ------+| ?15-29 ?| ?Stage four ? | ? Stage four ?+ ---+ ---+ -------+| ?<15 (or dialysis) ? ?| ?Stage five ? | ? Stage five ?+ ---+ ---+ -------+ *Each stage assumes the associated GFR level has been in effect for at least three months. ?Stages 1 to 5, with or without kidney disease, indicate chronic kidney disease. Notes: Determination of stages one and two (with eGFR >59mL/min/1.73 m2) requires estimation of kidney damage for at least three months as defined by structural or functional abnormalities of the kidney, manifested by either:Pathological abnormalities or Markers of kidney damage (including abnormalities in the composition of the blood or urine or abnormalities in imaging tests). Lab Interpretation (test code = 87840-9) Abnormal [facility] WITH OMKI3921-01-69 21:27:31* Test Item Value Reference Range Interpretation Comme nts WBC (test code = 6690-2) 8.20 See_Comment [Automated [employer]] The system which generated this result transmitted reference range: 4.30 - 11.10 10*3/?L. The reference range was not used to interpret this result as normal/abnormal. RBC (test code = 789-8) 4.34 See_Comment [Automated [employer]] The system which generated this result transmitted reference range: 3.93 - 5.25 10*6/?L. The reference range was not used to interpret this result as normal/abnormal. HGB (test code = 718-7) 12.1 g/dL 11.6-15.0 HCT (test code = 4544-3) 38.8 % 35.7-45.2 MCV (test code = 787-2) 89.4 fL 80.6-95.5 MCH (test code = 785-6) 27.9 pg 25.9-32.8 MCHC (test code = 786-4) 31.2 g/dL 31.6-35.1 L RDW-SD (test code = 08248-9) 44.9 fL 39.0-49.9 RDW-CV (test code = 788-0) 13.7 % 12.0-15.5 PLT (test code = 777-3) 195 See_Comment [Automated messa ge] The system which generated this result transmitted reference range: 166 - 358 10*3/?L. The reference range was not used to interpret this result as normal/abnormal. MPV (test code = 64981-8) 12.2 fL 9.5-12.9 NRBC/100 WBC (test code = 3867446685) 0.0 See_Comment [Automated [employer] ssage] The system which generated this result transmitted reference range: 0.0 - 10.0 /100 WBCs. The reference range was not used to interpret this result as normal/abnormal. NRBC x10^3 (test code = 2230372330) See_Comment [Automated [employer]a ge] The system which generated this result transmitted reference range: 10*3/?L. The reference range was not used to interpret this result as normal/abnormal. GRAN MAT (NEUT) % (test code = 770-8) 54.9 % IMM GRAN % (test code = 9385701418) 0.40 % LYMPH % (test code = 736-9) 34.0 % MONO % (test code = 5905-5) 7.4 % EOS % (test code = 713-8) 2.8 % BASO % (test code = 706-2) 0.5 % GRAN MAT x10^3(ANC) (test code = 3968474185) 4.50 10*3/uL 1.88-7.09 IMM GRAN x10^3 (test code = 8504580989) 0.03 10*3/uL 0.00-0.06 LYMPH x10^3 (test code = 731-0) 2.79 10*3/uL 1.32-3.29 MONO x10^3 (test code = 742-7) 0.61 10*3/uL 0.33-0.92 EOS x10^3 (test code = 711-2) 0.23 10*3/uL 0.03-0.39 BASO x10^3 (test code = 704-7) 0.04 10*3/uL 0.01-0.07 Lab Interpretation (test code = 30219-8) Abnormal [facility] URINALYSIS W SPECIFIC RYTHWDU7725-88-31 21:27:00* Test Item Value Reference Range Interpretation Comme nts POCT U SP GRAV (test code = 3255) 1020 mg/dl 1.005-1.025 A POCT PH U (test code = 3254) 5 mg/dl 5-8 POCT U LEUK EST (test code = 3263) negative Negative - Negative POCT U NIT (test code = 3262) negative Negative - Negati ve POCT U PROT (test code = 3259) negative Negative - Negative POCT U GLU (test code = 3256) negative Negative - Negati ve POCT U KETONE (test code = 3258) negative Negative - Negative POCT U UROBILI (test code = 3260) negative 0.2-1 POCT U BILI (test code = 3261) negative Negative - Negative POCT U BLD (test code = 3257) negative Negative - Negati ve POCT U COLOR (test code = 3266) dark yellow POCT U APPEAR (test code = 3267) hazy Lab Interpretation (test cod e = 53448-7) [facility] FPCUXFP0971-13-91 21:27:00* Test Item Value Reference Range Interpretation Comme nts POCT U SP GRAV (test code = 3255) 1020 mg/dl 1.005-1.025 A POCT PH U (test code = 3254) 5 mg/dl 5-8 POCT U LEUK EST (test code = 3263) negative Negative - Negative POCT U NIT (test code = 3262) negative Negative - Negati ve POCT U PROT (test code = 3259) negative Negative - Negative POCT U GLU (test code = 3256) negative Negative - Negati ve POCT U KETONE (test code = 3258) negative Negative - Negative POCT U UROBILI (test code = 3260) negative 0.2-1 POCT U BILI (test code = 3261) negative Negative - Negative POCT U BLD (test code = 3257) negative Negative - Negati ve POCT U COLOR (test code = 3266) dark yellow POCT U APPEAR (test code = 3267) hazy Lab Interpretation (test cod e = 79099-0) [facility]normal [facility]/o Fxxl9870-54-59 07:53:00* Test Item Value Reference Range Interpretation Comme nts White Blood Count (test code = WBCT) 6.2 x10 3/uL 4.4-10.5 N Red Blood Count (test code = RBC) 4.45 x10 6/uL 3.75-5.20 N Hemoglobin (test code = HGBT) 12.3 g/dL 12.2-14.8 N Hematocrit (test code = HCTT) 39.3 % 36.5-44.4 N Mean Corpuscular Volume (sofiya t code = MCV) 88.30 fL 80.00-100.00 N Mean Corpuscular Hemoglobin (test code = MCH) 27.6 pg 27.0-32.5 N Mean Corpuscular HGB Conc (test code = MCHC) 31.30 g/dL 32.00-37.50 L RDW Coefficient of Variation (test code = RDWCV) 14.1 % 11.5-14.5 N Platelet Count (test code = PLTT) 204.0 x10 3/uL 140.0-440.0 N Mean Platelet Volume (test code = MPV) 11.8 fL nRBC Abs (test code = NRBCA) 0 nRBC Pct (test code = NRBCP) 0 % Comprehensive Metabolic Wqrte4556-95-16 07:53:00* Test Item Value Reference Range Interpretation Comme nts SODIUM (test code = NA) 140.0 mmol/L 136.0-145.0 N Potassium,K (test code = K) 3.3 mmol/L 3.0-5.1 N Chloride (test code = CL) 105 mmol/L 98-107 N Carbon Dioxide (test code = CO2) 30 mmol/L 20-31 N Anion Gap (test code = GAP) 5 mmol/L 5-15 N Blood Urea Nitrogen (test co de = BUN) 16 mg/dL 9-23 N Creatinine (test code = CREATT) 0.75 mg/dL 0.55-1.02 N Creatinine Clr Calc Pharmacy (test code = CRCLPHA) 114.21 mL/min Estimated GFR ( Ameri ca (test code = EGFRAA) > 60 mL/min/1.73m2 Estimated GFR (Non Afr Ameri ca (test code = EGFRNAA) > 60 mL/min/1.73m2 BUN/Creatinine Ratio (test c ode = BCRATIO) 21 ratio 10-20 H Glucose (test code = GLU) 101 mg/dL 74-106 N Osmolality,Calculated (test code = OSMOC) 290.7 Calcium (test code = CA) 9.1 mg/dL 8.3-10.6 N Bilirubin,Total (test code = BILIT) 0.4 mg/dL 0.2-1.1 N Aspartate Amino Transferase (test code = AST) 22 U/L 0-34 N Alanine Aminotransferase (te st code = ALT) 16 U/L 10-49 N Total Protein (test code = TP) 7.5 g/dL 5.7-8.2 N Albumin Level (test code = ALB) 4.3 g/dL 3.2-4.8 N Globulin (test code = GLOB) 3.2 mg/dL 2.3-3.5 N Albumin/Globulin Ratio (test code = AGRATIO) 1.3 ratio 0.8-2.0 N Alkaline Phosphatase (test c ode = ALP) 112 U/L 46-116 N Notes Date/Time Note Provider Source 2023-10-03 16:40:27 +mJEch3sJ6hK5OJiDEN4wTZVjwtAy9knoK7 hzW9HHOd2fgMFWYz6OaZCMpx7m4qm7665-3 10-02T16:40:27 Patient informed 38454-3Kmrwnusrt encounter BxxkTW8183-08-15I19:40:37Telephone encounter NoteTXT1.2.840.876836.1.13.104.2.7. 2.281982|[id number] for patient fywb99303-4BezpYZQCFWDACWVXnalfevqj C-CDA narrative FileTrek[id number] 6OVSCVHASABLUKGCHIGLCXG1669-65-52B9 6:40:371.2.840.488222.1.72.3.15|1.2 .840.317826.1.13.104.2.7.2.727879_2 [id number] [facility] 2023-10-03 16:32:55 fvhIZufAf6sbetHn0XXlR+c/PF1d61fB+U5 Flifm8FRl31X/B9LhFkXl/OJ9SgTQ5454-1 6:32:[place] [address]-1Bmeoptcad encounter IzroMB4455-99-18F74:36:02Telephone encounter NoteTXT1.2.840.642218.1.13.104.2.7. 2.772848|[id number] for patient rvku43465-3EcbeGSCOVMIAVWGJhypqohhm C-CDA narrative FileTrek[id number] 2ONKGJOLLPHFGPZYJJYPASZ1686-34-52F9 6:36:021.2.840.393024.1.72.3.15|1.2 .840.512965.1.13.104.2.7.2.727879_2 [id number] [facility] 2023-09-14 09:00:00 lyXLysxU2Iwjdjjbe8fX9XNBws5HYIb9taK Znc9JV40ZXMqVV73TSQxL9HrAJ9R88445-5 09:00:00 Images from the original note were not included.Venipuncture collection performed by clean technique on the right anticubitus. Total of 1 attempts were made. Slight pressure and a bandage/dressing were applied to the site(s). The patient experienced no complications. The following specimens were processed according to instructions and sent to [facility] laboratories per lab order on 09/14/2023:LT BLUESST 3REDLAV 1PPTDK GREEN (LiHep)DK GREEN (SodH)GRAYDK BLUE (K2)DK BLUE (S)ACDBlood CultureNIPT/NTDPatient has been identified by and name and was provided with cup, antiseptic towelette, and clean catch instructions. 1 urine specimen(s) sent.Unpreserved 1Urine CultureAptima tubeOther urine 78675-0Zirgf JcwiVE0259-54-13Y19:14:00Nurse NoteTXT1.2.840.950349.1.13.104.2.7. 2.582031|[id number] for patient gfqs10147-0Aaevm NoteLNNARRATIVEFormatted C-CDA narrative text[address] Nk[id number] 8ACLMUBZEJDQUBBMINJMPSF9438-04-68I0 9:14:001.2.840.419450.1.72.3.15|1.2 .840.050922.1.13.104.2.7.2.727879_2 [id number] [facility] 2023-08-13 08:41:20 lq6nonRzb4cXQggWLcvRN+/tHAHaYPvohm0 rXR0h9IXN28gI4j9Hrf4PQ2wnDl0X0422-8 08:41:20 Medication refilled per policy:Last office visit: 07/20/23Next office visit: 09/14/23Requested PrescriptionsPending Prescriptions Disp RefillsLISINOPRIL-HYDROCHLOROTHIAZI DE 10-12.5 mg per tablet [Pharmacy Med Name: LISINOPRIL-HCTZ 10-12.5 MG TAB] 90 tablet 1Sig: TAKE 1 TABLET BY MOUTH EVERY DAY IN THE MORNINGLast fill date: 02/13/23Labs:Recent Labs102NA 142K (mmol/L)Date Value07/19/2023 3.5CREATININE (mg/dL)Date Value07/19/2023 0.71Notes:Primary hypertensionComment: chronic stablePlan: continue meds 13867-3Cgavlgfqg encounter BobcMW5246-96-54Q86:42:48Telephone encounter NoteTXT1.2.840.744310.1.13.104.2.7. 2.668106|[id number] for patient tqyn89304-0ErnbRYEWCKNOYWYQwlbaikvt C-CDA narrative textUT[address] Tp[id number] 9QIZURZWPHYZBGHCLSQEJKU3822-54-17F1 8:42:481.2.840.758004.1.72.3.15|1.2 .840.520800.1.13.104.2.7.2.727879_2 [id number] [facility] 2023-07-19 23:41:55 0JrpE/m5yZhsJiI1xSvRxTlhj5m6c0jvOD0 Zrz8fKawMxh3TsMRV3pYJFS960dNB2799-7 07-19T23:41:55 Pt given printed and verbal discharge instructions regarding pneumonia, encouraged hydration,Prescriptions providedDiscussed ibuprofen and to take with food to avoid GI distress.Discussed antibiotic therapy and to take until all completed unless adverse reaction occurs - if occurs, discontinue medication and follow up with pcp/seek medical attentionPt verbalized understanding of instructions, pt awake alert oriented, resp reg unlabored, skin w/d, color appropriate for race, moves all ext well,pt encouraged to follow up with pcp.Advised to seek medical attention for new/prolonged/worsening of symptoms.No adverse reaction to meds given in ER noted upon dischargePIV d'cd, dressing to site, catheter in tact.Awake, alert oriented, resp reg unlabored, skin w/d, pt leaving amb with steady gait, in no apparent distress. [address]-5Uukwgaxoi[address] UlfpAL0135-66-73Y24:42:36[facility] NoteTXT1.2.840.231731.1.13.104.2.7. 2.953848|[id number] for patient lakb03163-6SepkPHNXRLLYJOHVtmozyrau C-CDA narrative [id number] D Roman RNUT[address] Hs[id number] 2FHLPHHSJLPNVWAGGCUGIYC8190-88-10X5 3:42:361.2.840.285795.1.72.3.15|1.2 .840.130320.1.13.104.2.7.2.727879_2 [id number] Divine Souza RN [facility] 2023-07-19 19:39:02 6hBNgdIpp5i6qOllGMjJwusecMBqTxJ+WgL QWzPozbbbk9icVhgbAUHOy1aMXvr91389-3 07-19T19:39:02 Pt called from waiting room, no answer. [address]-9Grvbfmpqg[address] WszyAJ4385-18-74E14:39:12[facility] NoteTXT1.2.840.700271.1.13.104.2.7. 2.381468|[id number] for patient kuoa61265-0VjwcXQVJAZJNGKOOpftrjbay C-CDA narrative [id number] E Holden WIGGINS[id number] 8JICTVDXUBDSHEJLJALYJHF5060-86-17Q4 9:39:121.2.840.980627.1.72.3.15|1.2 .840.542323.1.13.104.2.7.2.727879_2 [id number] Orly Carb[facility]al [facility] 2023-07-19 18:38:20 B82/1DeDP3pAhN7wI4ExWgITfNWuFbrkq4X B6tpNZkNjsl/T6me7f/GHQVmWwQgH0106-3 8:38:20 Patient to ED for hypertension. She was at work and checked her BP and it was systolic of 195 and sent here. Also has neck pain that's worse when she moves her neck. Patient says she has some chest pain that feels like pleurisy which she has had before in the past. Pain hurts worse with deep breathing. 07450-3Qajgfwybl department Triage rxuvWG7836-56-14T92:39:53[facility] Triage noteTXT1.2.840.577395.1.13.104.2.7. 2.648233|[id number] for patient mscw37938-2Ucamsrzct department NoteLNNARRATIVEFormatted C-CDA narrative [id number] Shah RN[address] StreetRw[id number] 5PJOYBBUDKXUKMGRZDULPCB0051-87-92C1 8:39:531.2.840.436087.1.72.3.15|1.2 .840.628740.1.13.104.2.7.2.727879_2 [id number] Sonu Shah RN [facility] 2023-02-13 14:04:42 7Obav6G/arHkWY6bJVffl3PgADCQLYwtUvK KI20imKqAZ3sg3jexiMroHP4q2d3o2019-2 4:04:42 Images from the original note were not included.Requested Renewals lisinopriL-hydrochlorothiazide 10-12.5 mg per tablet Sig: Take 1 tablet by mouth in the morning. Disp: 90 tablet Refills: 1 Start: 02/13/2023 Class: eRX For: Primary hypertension Last ordered: 5 months ago (08/22/2022) by LISETH Tillman Cardiovascular: ACEI / Diuretic Combo Passed 02/13/2023 01:59 PM Protocol Details Valid encounter within last 12 months Na in normal range and within 180 days K in normal range and within 180 days Cr in normal range and within 180 days To be filled at: [facility]/pharmacy #[id number] AT [facility] [place] Recent VisitsDate Type Provider Dept 02/07/23 Office Visit Diana Gongora FNP [facility] 11/30/22 Office Visit Karen Vega PA [facility] 09/14/22 Office Visit Jane Melgar MD [facility] 08/22/22 Office Visit Diana Gongora FNP [facility] 05/15/22 Office Visit Diana Gongora FNP [facility] 12/12/21 Office Visit Diana Gongora FNP [facility] 11/07/21 Office Visit Diana Gongora FNP [facility] Showing recent visits within past 540 days with a meds authorizing provider and meeting all other requirementsFuture AppointmentsNo visits were found meeting these conditions.Showing future appointments within next 150 days with a meds authorizing provider and meeting all other requirements 10895-0Bsibqnqph encounter OealPN6758-45-10B63:05:01Telephone encounter NoteTXT1.2.840.844141.1.13.104.2.7. 2.915820|[id number] for patient omiu31171-4IthpNWYJNOTGJX[id number] 7TSZPYCWHFVTSSSFBDELZFX1538-96-43K8 4:05:011.2.840.610015.1.72.3.15|1.2 .840.693434.1.13.104.2.7.2.727879_1 [id number] [facility] 2023-02-09 16:35:01 icc5gm11myhsptyfi7NyCPcsydPnQV6Mzkr oSiC3wZf/6EKCqI9s44Ei2lgIuB950031-1 02-09T16:35:01 Patient notified and verbalized understanding 76390-9Fpxjiopxj encounter MnczXG2405-59-69P25:35:10Telephone encounter NoteTXT1.2.840.107201.1.13.104.2.7. 2.525820|[id number] for patient qiqb27740-6DvzfLFJQPRZNZF[address]vdG[id number] 2NXANQTYHRRDUQYHSOETPKI7979-61-98Y6 6:35:101.2.840.694915.1.72.3.15|1.2 .840.684720.1.13.104.2.7.2.727879_1 [id number] [facility] 2023-02-09 16:14:51 iB6EVgoPbHVV+EfGKZwO1uuYCZAqaiRZSRO EUXjemdDuC6bASsDdDKJpdyCSukjs2010-7 6:14:51 Addended by: DIANA GONGORA on: 02/09/2023 04:14 PM Modules accepted: Orders 88807-0Pluvakwr ZpwlthrgXU9292-57-85U57:14:51Addend um DocumentTXT1.2.840.223574.1.13.104. 2.7.2.846985|[id number] for patient exoy06435-4BrdgHRLKSNQKQM[id number] 4KGJVEXGSULAANQRFICMVTB2000-14-60R8 6:14:511.2.840.211572.1.72.3.15|1.2 .840.918865.1.13.104.2.7.2.727879_1 [id number] [facility] 2023-02-09 16:13:48 k0/2daI3+8/Hm4OXX/tywK1NbFITbPqpY08 SWYOFPl7UohLagSIrWNC6CcH6Z1iu2150-5 6:13:48 I sent NSAIDS for body aches and night sweats 94576-5Gskgpgmvu encounter SkojBK3412-60-98O75:14:22Telephone encounter NoteTXT1.2.840.363356.1.13.104.2.7. 2.234348|[id number] for patient dpei45297-1PybbJCDGNJQXDD[id number] 5QIFEGHBLSMGJGXWUJGRQEN2412-30-33A7 6:14:221.2.840.519030.1.72.3.15|1.2 .840.593797.1.13.104.2.7.2.727879_1 [id number] [facility] 2023-02-09 15:42:08 BuSnDUuRVBfbmPUirORufuf/mH6dp/3Mtxz GSA3UZJg5NXpVxM+OKLH2fLYYysW60779-2 5:42:08 Patient notified of the cough medication, she asked if there is something else that can be called in for her, she has headache and night sweats. 99314-9Zjqiqnrck encounter ZnylEO8569-80-44C44:43:29Telephone encounter NoteTXT1.2.840.846710.1.13.104.2.7. 2.845036|[id number] for patient jyxz73271-7MjxpMPPEZODTWI[address]vdG[id number] 6ZTTNBDHWTFAIICKGJTDSAX3041-72-41W8 5:43:291.2.840.835914.1.72.3.15|1.2 .840.944702.1.13.104.2.7.2.727879_1 [id number] [facility] 2023-02-09 13:09:54 pAVXIDvk2I9TZdUalOqPHfTVNUVb//bGnbV V3cgKWrpQ8oCZzIL3UzBvKQa/GciH3504-9 3:09:54 Attempted to contact patient. No answer. Left message to call back.Tamika Siddiqui LVN 02/09/2023 1:10 PM 79332-0Qnhqvepxz encounter UkfvPO3150-25-11G23:10:04Telephone encounter NoteTXT1.2.840.599184.1.13.104.2.7. 2.765305|[id number] for patient hkxb10774-1SzikQWRUDKUTMI[id number] 1IBONZNGKXDMFHIONUHHOGI9878-07-96F8 3:10:041.2.840.774050.1.72.3.15|1.2 .840.159724.1.13.104.2.7.2.727879_1 [id number] [facility] 2023-02-09 13:02:21 Chaparro+3qt5QhJpYo4hcyI4QneiFB4/O7CsAC qM85HOrVxXCHlHXAx5ZtbJZvm1yF29220-0 3:02:21 Her s/s started on 02/02 only 5 days are needed to quarantine unless still having a fever or feeling bad, in that circumstance a total of 10 days. [place] 98080-2Qahwchcfn encounter CnqiHK7578-26-07Z72:05:16Telephone encounter NoteTXT1.2.840.493591.1.13.104.2.7. 2.526504|[id number] for patient sjin00096-6EsjhDXAIDBYVVE[id number] 2NAGQZXUSVVBSKSXEXTPRLM0018-78-87J2 3:05:161.2.840.312620.1.72.3.15|1.2 .840.025099.1.13.104.2.7.2.727879_1 [id number] [facility] 2023-02-09 08:52:06 67RumgubtlY+s3U7WWBEzLshfDFxr7lX/HIGGINS PnmVYGtnO0QFqRRPqfteBw6DI+8RD2115-3 08:52:06 Positive 02/08/23 09391-4Zqtbpnjbn encounter WtqgFW8730-57-08Q11:52:31Telephone encounter NoteTXT1.2.840.271142.1.13.104.2.7. 2.880269|[id number] for patient kgco64816-2TytsWUHSNVJOCW[id number] 5TEQGFZZRGPQMYKIVPSMTTM7258-14-55R9 8:52:311.2.840.359158.1.72.3.15|1.2 .840.888970.1.13.104.2.7.2.727879_1 [id number] [facility] 2023-02-09 08:33:16 i7xh5SmoMXdwy8dgwa2ZWf9Jk6+5lrTgdjA /QUWCOpdu6sblGqQm9Zx5d6OhOgxq9106-0 08:33:16 Per pt tested positive for Covid and does have a cough. Pt would like something called in for her. Pt also needs a work excuse extended to return to work next Sunday. Please advise. 25906-2Rvxwfbgxa encounter DjvxKI6279-75-39E94:35:01Telephone encounter NoteTXT1.2.840.323195.1.13.104.2.7. 2.970177|[id number] for patient [id number] [address] Ia[id number] 5CUTSSAFEISODIOYQLBVFCQ4323-60-62N3 8:35:011.2.840.989711.1.72.3.15|1.2 .840.419978.1.13.104.2.7.2.727879_1 [id number] [facility]
[2023-11-19] MEDS ORDERED: ONDANSETRON 4 MG/2 ML VIAL ONE (12:49)
[2023-11-19] MEDS ORDERED: KETOROLAC 30 MG/ML INJ ONE (12:49)
[2023-11-19] MEDS ORDERED: NA CHLORIDE 0.9% 1,000 ML ONE (12:50)
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
[2023-11-19 13:26] LABS: Absolute Eosinophils 0.3 K/uL (0-0.5); Absolute Lymphocytes (CBC) 1.9 K/uL (0.7-4.9); Absolute Monocytes 0.6 K/uL (0.1-1.3); Absolute Neutrophil 2.7 K/uL (1.8-8.0); Basophils % 0.6 % (0-1.3); Eosinophils % 4.7 % (0-4.4); Hematocrit 37.7 % (36.0-45.0); Lymphocytes % 34.8 % (15.3-44.8); MCH 27.6 pg (27.0-35.0); MCHC 31.8 g/dL (32.0-36.0); MPV 9.7 fL (7.6-11.3); Monocytes % 10.8 % (3.3-12.3); Neutrophils % 49.1 % (41.7-73.7); Platelets 185 thou/uL (152-406); RBC Red Blood Cell Count 4.34 M/uL (3.86-4.86); Red Cell Distribution Width 15.4 % (12.1-15.2)
[2023-11-19 13:43] LABS: ALT/SGPT 22 U/L (13-56); Albumin 3.3 g/dL (3.4-5.0); Albumin/Globulin Ratio 0.8 (1.1-1.8); Alkaline Phosphatase 116 U/L (45-117); Anion Gap 5.2 mEq/L (5.0-15.0); BUN Blood Urea Nitrogen 20 mg/dL (7-18); Bicarbonate 31 mEq/L (21-32); Bilirubin Total 0.2 mg/dL (0.2-1.0); Globulin 4.1 g/dL (2.3-3.5); Glomerular Filtration Rate 84 ml/min (=/>90); Glucose Level 85 mg/dL (74-106); Lipase 21 U/L (13-75); Potassium 3.2 mEq/L (3.5-5.1); Protein, Total 7.4 g/dL (6.4-8.2); Sodium Level 141 mEq/L (136-145)
[2023-11-19 13:47] LABS: AST/SGOT < 10 U/L (15-37); Bilirubin Direct < 0.2 mg/dL (0-0.2)
[2023-11-19 14:17] LABS: Sqamous Epithelial <5 /HPF (None Seen); Urine Bacteria None Seen /HPF (<20); Urine Bilirubin NEGATIVE (Negative); Urine Blood Negative (Negative); Urine Clarity Clear (Clear); Urine Color Light-Yellow (Yellow); Urine Culture Reflex Order NOT NEEDED; Urine Glucose NEGATIVE (Negative); Urine Ketones NEGATIVE (Negative); Urine Microscopic Reflex YN ORDER UMIC; Urine Mucus Slight /HPF (None Seen); Urine Nitrite NEGATIVE (Negative); Urine Protein TRACE (Negative); Urine RBC <5 /HPF (None Seen); Urine Urobilinogen Normal (Normal); Urine WBC <5 /HPF (<5)
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
[2023-11-19] MEDS ORDERED: DIAZEPAM 5 MG TABLET ONE (15:48)
[2023-11-19 16:07] VITALS: BP 173/93; TEMP 98.4; O2SAT 100
== END 2023-11-19 15:54 | disposition home or self-care (01) ==
LOC: ER 12:16
DX: S16.1XXA Strain of muscle, fascia and tendon at neck level, initial encounter (principal); R29.91 Unspecified symptoms and signs involving the musculoskeletal system; V49.49XA Driver injured in collision with other motor vehicles in traffic accident, initial encounter
CPT/HCPCS: 85025; 81001; 80048; 36415; 86900; 86850; 86901; 80076; 83690; 70450; 71250; 72125; 96375; 96374; 99285; J2405; J7030